=== PATIENT | male | born 1940 | race Caucasian/White ===

== ENCOUNTER 2023-04-09 10:23 | Emergency (ER) | payer MEDICARE, SELFPAY ==
[2023-04-09 10:26] VITALS: BP 174/80
[2023-04-09 10:30] VITALS: BMI 25.4
[2023-04-09 11:00] VITALS: BP 135/84
[2023-04-09 12:00] VITALS: BP 161/74
--- NOTE | 2023-04-09 12:10 | ED.GENMED ---
History of Present Illness
General
Chief Complaint: Fall
Source: patient and ambulance crew
Exam Limitations: none
Time Seen by Provider: 04/09/23 10:29
Travel History
Have you had any contact with someone who has COVID-19?: No
Do you have any symptoms of coronavirus? Fever > 100 degrees, chills, cough, shortness of breath, sore throat, loss of taste or smell, muscle aches, or headache?: No
History of Present Illness
History of Present Illness:
82-year-old male who fell out of his lounge chair recliner last night. Patient states that it laid back and normally it has power to sit back up but it would not go back up. He then tried to roll off of the side. He states he fell to the ground
and struck his right forehead. Patient denies any current complaints. He states he has a very minimal headache if anything. No neck pain. No loss of consciousness. No vomiting. Also has had little bit of oozing from his left AV graft since
dialysis.
Past History
Past History
ED Past Medical History: CAD, CHF, IDDM, [place], Renal failure and Other (Chronic kidney disease, chronic liver disease.)
ED Past Surgical History: Cardiac, Cholecystectomy, Orthopedic and Other (Pancreatic cyst removal)
Social History
Tobacco: Former smoker
Alcohol: None
Drug: None
Personal:
Living: with family
Employment: Retired
Family History
Family History: Diabetes and CAD
Phy Exam
Physical Exam
Physical Exam:
CONSTITUTIONAL Vital signs reviewed, Patient alert and oriented to person, place and time. Well-appearing
HEAD ecchymosis to the right forehead and right periorbital region. No crepitus. No step-offs or bony tenderness
EYES eyelids normal to inspection, Extraocular muscles intact, Conjunctiva normal, Sclera normal.
NECK normal range of motion, Trachea midline, no jugular venous distention. No midline tenderness
RESP no respiratory distress
BACK No obvious deformities
UPPER EXTREMITY Gross Range of motion normal, gross motor strength normal
LOWER EXTREMITY Gross range of motion normal, Gross motor strength normal
NEURO Speech normal, No focal motor deficits include, Paco coma scale 15, Memory normal, Cranial Nerves intact to screening exam.
SKIN Skin warm, dry, and normal in color.
PSYCHIATRIC Patient oriented to person place and time, Normal affect.
Course
Orders/Labs/Results
Orders:
Orders
04/09/23 10:47
CT Head W/o Iv Contrast Urgent
Comment:
Reason For Exam: fall
Vital Signs
Initial and Last Documented VS:
Initial Vital Signs
Temp Pulse Resp BP Pulse Ox
97.7 F 85 15 174/80 98
04/09/23 10:26 04/09/23 10:04/09/23 10:04/09/23 10:04/09/23 10:26
Last Documented Vital Signs
Temp Pulse Resp BP Pulse Ox
97.7 F 85 15 174/80 98
04/09/23 10:26 04/09/23 10:04/09/23 10:04/09/23 10:04/09/23 10:32
MDM/Problems Addressed
MDM/Problems Addressed:
head injury
*Radiology
Radiology exam reviewed: preliminary read by ED provider (no obvious ICH) and all reviewed NAD by ED Provider
*Pulse Oximetry
Patient hypoxic: no
*Critical Care Note
Total Time (30-74mins, 75-104mins- exclusive of procedures): Not Applicable
Data Reviewed
Source: patient and ambulance crew
Further Testing Considered But Not Given:
Consider C-spine imaging but no tenderness and normal range of motion
Update Note
Update Note:
CT negative. Okay for discharge. Nonfocal exam
ED Attending Note
-
Portions of this chart may have been created with voice recognition software.� Occasional wrong word or��sound alike� substitutions may have occurred due to the inherent limitations of voice recognition software.
Discharge Plan
Departure
Patient Disposition: Home (Routine Discharge)
Date of Disposition: 04/09/23
Time of Disposition: 12:12
Patient with high blood pressure during this ER visit?: Yes
Discharge Problem:
Head injury
Instructions: Head Injury in Adults (DC), BLOOD PRESSURE
Prescriptions:
No Action
vitamin B complex 1 TAB tablet
1 tab PO DAILY
finasteride 5 MG tablet
5 mg PO DAILY
aspirin 81 MG tablet,delayed release (DR/EC)
81 mg PO QPM
coenzyme Q10 [Co Q-10] 100 MG capsule
100 mg PO DAILY
Aranesp (in polysorbate) 10 MCG/0.4 ML syringe
0 dose IJ DAILYPRN PRN (Reason: low hb)
multivitamin with folic acid [Tab-A-Albino] 1 TABLET tablet
1 tab PO QPM
Patient Comments:
Not to take before dialysis
calcium acetate 667 MG tablet
1,334 mg PO MEALS
insulin aspart U-100 [Novolog FlexPen U-100 Insulin] 300 UNITS/3 ML insulin pen
0 units SC TIDPRN PRN (Reason: high blood sugar)
Patient Comments:
sliding scale
rosuvastatin 10 MG tablet
10 mg PO DAILY
furosemide 80 mg Tablet
80 mg PO SUMOWEFR
clopidogrel 75 mg tablet
75 mg PO DAILY
albuterol sulfate 90 mcg/actuation HFA aerosol inhaler
2 puff INHALATION R Q4HPRN PRN (Reason: sob/wheezing)
Anoro Ellipta 62.5-25 mcg/actuation blister with device
1 inh INHALATION R DAILY
pantoprazole [Protonix] 40 mg Tablet,Delayed Release (Dr/Ec)
40 mg PO DAILY
docusate sodium [Colace] 100 mg Capsule
100 mg PO BID
loratadine [Allerclear] 10 mg Tablet
10 mg PO DAILY
cholecalciferol (vitamin D3) [Vitamin D3] 25 mcg (1,000 unit) Capsule
25 mcg PO DAILY
midodrine 5 mg tablet
10 mg PO .BID@TUTHSA
acetaminophen [Tylenol Extra Strength] 500 MG tablet
500 mg PO TID
metoprolol succinate 25 mg tablet extended release 24 hr
75 mg PO QPM
amoxicillin-pot clavulanate 500-125 mg Tablet
1 tab PO Q12H 6 Days Qty: 12 0RF
Levemir U-100 Insulin 100 unit/mL Solution
10 unit SC BID Qty: 0 0RF
ciprofloxacin HCl [Cipro] 250 mg tablet
250 mg PO ONCE Qty: 6 0RF
Referrals:
Vic Chappell MD [Family Provider] -
Activity Restrictions/Additional Instructions:
Return immediately for intractable vomiting, changes in mentation, weakness of any kind, or any other concerns.
Interventions
Interventions:
*Risk Screen - Suicide Last Done: 04/09/23 10:32
*General Assessment Last Done: 04/09/23 10:32
*Neglect/Abuse Screening Last Done: 04/09/23 10:32
ED- Fall Risk Assessment Last Done: 04/09/23 10:32
*ED COVID-19 Vaccine History Last Done: 04/09/23 10:32
ED-Musculoskeletal Assessment Last Done: 04/09/23 10:32
ED-Skin Assessment Last Done: 04/09/23 10:32
[2023-04-09 13:44] VITALS: BP 157/73
[2023-04-09 13:45] VITALS: BP 157/73
[2023-04-09 14:00] VITALS: BP 157/72
== END 2023-04-09 14:20 | disposition home or self-care (01) ==
LOC: EMR 10:23
PROVIDERS: EMERGENCY PHYSICIAN Emergency Medicine; FAMILY PHYSICIAN Internal Medicine
DX: S09.90XA Unspecified injury of head, initial encounter (principal); W07.XXXA Fall from chair, initial encounter; Z87.891 Personal history of nicotine dependence; I10 Essential (primary) hypertension
CPT/HCPCS: 99284; 70450

== ENCOUNTER 2023-05-04 20:40 | Inpatient (IN) | payer MEDICARE, SELFPAY ==
[2023-05-04] VITALS (7 sets, daily range): BP systolic 122–143; BP diastolic 58–84; BMI 25.2
--- NOTE | 2023-05-04 16:39 | ED.GENMED ---
History of Present Illness
General
Chief Complaint: Breathing Problem
Source: patient
Exam Limitations: none
Time Seen by Provider: 05/04/23 16:32
Travel History
Have you had any contact with someone who has COVID-19?: No
Do you have any symptoms of coronavirus? Fever > 100 degrees, chills, cough, shortness of breath, sore throat, loss of taste or smell, muscle aches, or headache?: No
History of Present Illness
History of Present Illness:
See MDM
Past History
Past History
ED Past Medical History: CAD, CHF, IDDM, CT, Renal failure and Other (Chronic kidney disease, chronic liver disease.)
ED Past Surgical History: Cardiac, Cholecystectomy, Orthopedic and Other (Pancreatic cyst removal)
Social History
Tobacco: Former smoker
Alcohol: None
Drug: None
Personal:
Living: with family
Employment: Retired
Family History
Family History: Diabetes and CAD
Phy Exam
Physical Exam
Physical Exam:
See MDM
Scores
Heart Failure Risk
Heart Failure Risk Score: Yes
History of Stroke or TIA: No
History of intubation for respiratory distress: No
Heart rate on ED arrival >/= 110: No
SaO2 <90% on arrival on room air: Yes
HR >/=110 during 3min walk test (or too ill to perform test): Yes
ECG has acute ischemic changes: No
Urea >/=12mmol/L (BUN 33.6mg/dL): No
Serum CO2>/=35mmol/L: No
Troponin I or T elevated to CT Level (0.4mg/dL): No
NT-proBNP >/=5,000ng/L (5,000pg/ml): Yes
HF Risk Score: 4
Admission Status: HIGH RISK 26.1% Consider SNF treatment or admission to hospital
Course
Orders/Labs/Results
Orders:
Orders
05/04/23 16:33
EKG [Electrocardiogram (*1)] Urgent
Reason for Study: Shortness of Breath
EKG- Treatment ONCE
05/04/23 16:38
Acetaminophen [Tylenol] 1,000 mg PO NOW STA
CR Chest - 2 Views Urgent
Comment:
Reason For Exam: SOB, fever, ESRD
05/04/23 16:49
COVID-19 Antigen Urgent
Source: Nasal Swab
Complete Blood Count/With Diff Urgent
Comprehensive Metabolic Panel Urgent
Lactic Acid Q4H
Comment: CANCEL 2nd LACTIC ACID IF 1st LACTIC ACID IS LESS THAN 2
NT-proBNP Urgent
Troponin I Urgent
Blood Culture Q30M
[facility] Source: Blood/Venous
Specimen Description:
Blood Culture Q30M
[facility] Source: Blood/Venous
Specimen Description:
Influenza A+B Rapid Molecular Urgent
[facility] Source: Nasal Swab
Specimen Description:
05/04/23 18:27
Piperacillin/Tazo 3.375 Gram [Zosyn] 3.375 gram in 50 ml IV NOW
05/04/23 18:57
Vancomycin [Vancocin] 1,500 mg 0.9% Sodium Chloride [Nss] 20 ml 0.9% Sodium Chloride 250 ml [Nss] 250 ml IV NOW
05/04/23 20:45
Lactic Acid Q4H
Comment: CANCEL 2nd LACTIC ACID IF 1st LACTIC ACID IS LESS THAN 2
Abnormal Lab Results
05/04/23
16:49
RBC 2.51 L 10^6/uL
(4.70-6.10)
Hgb 7.9 L g/dL
(13.0-18.0)
Hct 23.5 L %
(39.0-52.0)
MCH 31.5 H pg
(27.0-31.0)
RDW 15.6 H %
(11.5-14.5)
Plt Count 101 L 10^3/uL
(130-400)
MPV 11.5 H fL
(7.4-10.4)
Absolute Lymphs (auto) 0.3 L 10^3/uL
(1.2-3.4)
Immature Gran % 0.7 H %
(0-0.5)
Neutrophils % 82.6 H %
(42.2-75.2)
Lymphocytes % 5.2 L %
(20.5-51.1)
Potassium 3.2 L mmol/L
(3.5-5.1)
BUN 33 H mg/dl
(9-20)
Creatinine 3.1 H mg/dL
(0.7-1.3)
Glucose 225 H mg/dl
(70-99)
05/04/23 16:49
05/04/23 16:49
Vital Signs
Initial and Last Documented VS:
Initial Vital Signs
Temp Pulse Resp BP Pulse Ox
100.1 F 99 18 136/62 83
05/04/23 16:36 05/04/23 16:36 05/04/23 16:36 05/04/23 16:36 05/04/23 16:36
Last Documented Vital Signs
Temp Pulse Resp BP Pulse Ox
100.1 F 99 18 136/62 98
05/04/23 16:36 05/04/23 16:36 05/04/23 16:36 05/04/23 16:36 05/04/23 16:42
MDM/Problems Addressed
Differential Diagnosis Includes:
HPI and MDM Narrative:
82-year-old male presenting with shortness of breath. Patient had a full dialysis session earlier today. When he arrived back to the nursing facility, he is short of breath. On arrival, patient found to be mildly hypoxic requiring supplemental
oxygen. Patient also found be febrile. He complains of shortness of breath and weakness.
Will obtain chest x-ray looking for evidence of pneumonia. Will obtain viral testing.
Physical exam
General: Weak and frail
HEENT: protecting airway
Neck: supple
CV: No evidence of cyanosis. Regular rate and rhythm
Resp: No accessory muscle use. Poor air exchange
Abd: Non-distended
Extremities: Left arm fistula with palpable thrill
Neuro: alert
Psych: Normal affect
Skin: Warm
Problems Addressed including Acute and Chronic Conditions affecting care:
1. Shortness of breath
Acuity: acute
Prognosis: stable
Details: Given the hypoxia, patient will likely require admission. Will obtain chest x-ray looking for evidence of pneumonia versus CHF.
2. Hypoxia
Acuity: acute
Prognosis: unstable
Details: Patient requiring supplemental oxygen
3. Hypokalemia
Acuity: acute
Prognosis: stable
Details: Will defer to hospitalist for repletion
Updates
Chest x-ray is concerning for interstitial edema. There is concern for right lower lobe pneumonia. Given the fever and hypoxia, will start antibiotics. Patient does make urine but will refrain from IV Lasix at the moment given the hypokalemia
Differential Diagnosis (but not limited to): Pneumonia, CHF, viral syndrome, PE
Testing considered: D-dimer
Drug therapy (if applicable): OTC meds, please see d/c instruction regarding Rx drugs
Amount and/or Complexity of Data Reviewed
Clinical info obtained from: Patient
External data reviewed: N/A
Labs I independently reviewed (but not limited to): Potassium, BNP
Radiology: X-ray independently reviewed: Concern for pulmonary edema and right lower lobe pneumonia
Pulse Ox: hypoxic
EKG independently reviewed: Sinus rhythm, left axis, no STEMI
Box Stamper: sinus rhythm
Critical Care: N/A
Risk of Complication:
Social Determinants of health: Good social support
Discussed with other providers: Hospitalist
Escalation of Care includes Admit/Obs: Given the interstitial edema, concern for pneumonia and hypoxia, will admit
Occasional wrong word or 'sound a like' substitutions may have occurred due to the inherent limitations of voice recognition software. Read the chart carefully and recognize, using context, where substitutions have occurred.
*Critical Care Note
Total Time (30-74mins, 75-104mins- exclusive of procedures): Not Applicable
ED Attending Note
-
Portions of this chart may have been created with voice recognition software.� Occasional wrong word or��sound alike� substitutions may have occurred due to the inherent limitations of voice recognition software.
Discharge Plan
Departure
Patient Disposition: Admit
Date of Disposition: 05/04/23
Time of Disposition: 19:11
Admit to: Med/Surg
Presentation/result/management discussed w/ accepting MD/DO: Hospitalist
Discharge Problem:
PNA (pneumonia), Interstitial edema, Hypoxia
Prescriptions:
No Action
vitamin B complex 1 TAB tablet
1 tab PO DAILY
finasteride 5 MG tablet
5 mg PO DAILY
aspirin 81 MG tablet,delayed release (DR/EC)
81 mg PO QPM
coenzyme Q10 [Co Q-10] 100 MG capsule
100 mg PO BID
Aranesp (in polysorbate) 10 MCG/0.4 ML syringe
0 dose IJ DAILYPRN PRN (Reason: low hb)
calcium acetate 667 MG tablet
1,334 mg PO MEALS
insulin aspart U-100 [Novolog FlexPen U-100 Insulin] 300 UNITS/3 ML insulin pen
0 units SC TIDPRN PRN (Reason: high blood sugar)
Patient Comments:
sliding scale
Rx Instructions:
>150= 2 units; >200= 4 units
rosuvastatin 10 MG tablet
10 mg PO QPM
furosemide 80 mg Tablet
80 mg PO SUMOWEFR
clopidogrel 75 mg tablet
75 mg PO DAILY
albuterol sulfate 90 mcg/actuation HFA aerosol inhaler
2 puff INHALATION R Q4HPRN PRN (Reason: sob/wheezing)
Anoro Ellipta 62.5-25 mcg/actuation blister with device
1 inh INHALATION R DAILY
pantoprazole [Protonix] 40 mg Tablet,Delayed Release (Dr/Ec)
40 mg PO DAILY
docusate sodium [Colace] 100 mg Capsule
100 mg PO BID
loratadine [Allerclear] 10 mg Tablet
10 mg PO DAILY
cholecalciferol (vitamin D3) [Vitamin D3] 25 mcg (1,000 unit) Capsule
25 mcg PO BID
acetaminophen [Tylenol Extra Strength] 500 MG tablet
500 mg PO TID PRN (Reason: mild pain)
metoprolol succinate 25 mg tablet extended release 24 hr
25 mg PO BID
famotidine 40 mg tablet
40 mg PO BID
megestrol 625 mg/5 mL (125 mg/mL) suspension
625 mg PO SUMOWEFR
Dialyvite [id number] gn-vb-zgb-mg tablet
1 tab PO QPM
biotin 5,000 mcg Tablet,Chewable
5,000 mcg PO BID
Levemir U-100 Insulin 100 unit/mL solution
10 - 12 unit SC QPM
Referrals:
Vic Chappell MD [Family Provider] -
Interventions
Interventions:
*Risk Screen - Suicide Last Done: 05/04/23 16:38
*General Assessment Last Done: 05/04/23 16:38
*Neglect/Abuse Screening Last Done: 05/04/23 16:38
*ED COVID-19 Vaccine History Last Done: 05/04/23 16:38
ED- Cardiac Assessment Last Done: 05/04/23 16:42
ED- Pulmonary Assessment Last Done: 05/04/23 16:42
[2023-05-04] MEDS: TYLENOL 1000 MG PO (16:44)
[2023-05-04 17:02] LABS: % Basophils 0.4 % (0-2); % Eosinophils 3.5 % (0-6); % Immature Granulocytes 0.7 % (0-0.5); % Lymphocytes 5.2 % (20.5-51.1); % Monocytes 7.6 % (1.7-9.3); % Neutrophils 82.6 % (42.2-75.2); Absolute Eosinophils 0.2 10^3/uL (0-0.7); Absolute Lymphocytes 0.3 10^3/uL (1.2-3.4); Absolute Monocytes 0.4 10^3/uL (0.1-0.6); Absolute Neutrophils 4.5 10^3/uL (1.4-6.5); Hematocrit 23.5 % (39.0-52.0); Hemoglobin 7.9 g/dL (13.0-18.0); Mean Corp Hgb Conc. 33.6 g/dL (33.0-37.0); Mean Corpuscular Hgb 31.5 pg (27.0-31.0); Mean Corpuscular Volume 93.6 fL (80.0-94.0); Mean Platelet Volume 11.5 fL (7.4-10.4); Nucleated Red Blood Cells % 0 % (-); Platelet Count 101 10^3/uL (130-400); Red Blood Cell Count 2.51 10^6/uL (4.70-6.10); Red Cell Dist. Width 15.6 % (11.5-14.5); White Blood Cell Count 5.4 10^3/uL (4.8-10.8)
[2023-05-04 17:19] LABS: ALT (SGPT) 17 U/L (0-50); AST (SGOT) 23 U/L (17-59); Alkaline Phosphatase 88 U/L (38-126); Blood Urea Nitrogen 33 mg/dl (9-20); Carbon Dioxide 30 mmol/L (22-30); Chloride 98 mmol/L (98-107); Estimated Creatinine Clearance 17 ml/min; Glucose 225 mg/dl (70-99); Potassium 3.2 mmol/L (3.5-5.1); Sodium 136 mmol/L (135-145); Total Bilirubin 1.2 mg/dl (0.2-1.3); Total Protein 6.5 g/dl (6.3-8.2); eGFR 19.45
[2023-05-04 17:30] LABS: NT-proBNP > 27000 pg/ml; Troponin I < 0.012 ng/ml
[2023-05-04 18:17] LABS: COVID-19 Antigen Negative (Negative)
[2023-05-04] MEDS: ZOSYN 50 IV (18:43)
[2023-05-04] MEDS: VANCOCIN 300 MG IV (19:24)
[2023-05-04] MEDS: VANCOCIN 300 ML IV (19:24)
--- NOTE | 2023-05-04 19:51 | HPS.HSE ---
Family Physician
-
Family Physician: Vic Chappell
Chief Complaint
-
shortness of breath
History of Present Illness
82-year-old male with past medical history of ESRD on hemodialysis, CAD, chronic HFrEF, COPD, diabetes, MDS, anemia of CKD, diverticulitis, presenting with feeling unwell and shortness of breath. He had a chemical stress test 3 weeks ago and since
then he has been having progressive shortness of breath. He has a slight cough which is chronic. He denies any chest pain. He denies any fever or chills but did have a fever today. He did have dialysis today. He has had increased lower
extremity edema recently. He thinks he has been losing weight recently because he has not been eating much because food tastes bland. He denies any nausea vomiting or abdominal pain. He has been constipated and did not have a bowel movement for
few weeks and took a laxative a few days ago and had a small bowel movement today. He denies any blood in the stool or black stool. He does make some urine at baseline and has chronic urinary burning for several years.
Patient denies blood in the stool or black stool
Denies current smoking. Denies alcohol use.
Medical History
Past Medical History
Past Medical History: Reports Other (ESRD on hemodialysis, CAD, chronic HFrEF, COPD, diabetes, MDS, anemia of CKD, diverticulitis, )
Past Surgical History: Reports Other ( Cardiac, Cholecystectomy, Orthopedic and Other (Pancreatic cyst removal))
Social History
Tobacco: Non-smoker
Alcohol: None
Drug: None
Family History
Family History: Not pertinent
Allergies / Home Medications
Allergies reflects when Allergies were last updated in [facility].
Home Medications with original date entered in [facility]
Allergy/Medication List:
Allergies
Allergy/AdvReac Type Severity Reaction Status Date / Time
adhesive Allergy Unknown Verified 05/04/23 16:35
baclofen Allergy confusion, Verified 05/04/23 16:35
extrapyramidal
symptoms
metoclopramide [From Reglan] Allergy Unknown Verified 05/04/23 16:35
Home Medications
vitamin B complex 1 tab PO DAILY Supplement 10/08/17
aspirin 81 mg tablet,delayed release 81 mg PO QPM Blood clot prevention/tx 01/11/19
coenzyme Q10 100 mg capsule (Co Q-10) 100 mg PO BID Heart disease/condition 01/11/19
darbepoetin дмитрий in polysorbat 10 mcg/0.4 mL in polysorbate injection syringe (Aranesp) 0 dose IJ DAILYPRN PRN low hb 01/11/19
finasteride 5 mg tablet 5 mg PO DAILY Urinary issue 01/11/19
calcium acetate 667 mg tablet 1,334 mg PO MEALS High phosphorous 09/15/19
insulin aspart U-100 100 unit/mL (3 mL) subcutaneous pen (Novolog FlexPen U-100 Insulin aspart) 0 units SC TIDPRN PRN high blood sugar 09/15/19
rosuvastatin 10 mg tablet 10 mg PO QPM High cholesterol 09/15/19
furosemide 80 mg tablet 80 mg PO SUMOWEFR Fluid retention/Swelling 02/16/22
albuterol sulfate 90 mcg/actuation aerosol inhaler 2 puff inhalation R Q4HPRN PRN sob/wheezing 06/07/22
clopidogrel 75 mg tablet 75 mg PO DAILY Blood clot prevention/tx 06/07/22
umeclidinium 62.5 mcg-vilanterol 25 mcg/actuation powdr for inhalation (Anoro Ellipta) 1 inh inhalation R DAILY Lung/breathing issues 06/07/22
acetaminophen 500 mg tablet (Tylenol Extra Strength) 500 mg PO TID PRN mild pain 10/06/22
cholecalciferol (vitamin D3) 25 mcg (1,000 unit) capsule (Vitamin D3) 25 mcg PO BID 10/06/22
docusate sodium 100 mg capsule (Colace) 100 mg PO BID 10/06/22
loratadine 10 mg tablet (Allerclear) 10 mg PO DAILY 10/06/22
metoprolol succinate 25 mg tablet,extended release 24 hr 25 mg PO BID 10/06/22
pantoprazole 40 mg tablet,delayed release (Protonix) 40 mg PO DAILY 10/06/22
B complex 11-folic acid 1 mg-C 100 mg-biotin 300 mcg-zinc 50 mg tablet (Dialyvite) 1 tab PO QPM 05/04/23
biotin 5,000 mcg chewable tablet 5,000 mcg PO BID 05/04/23
famotidine 40 mg tablet 40 mg PO BID 05/04/23
insulin detemir U-100 100 unit/mL subcutaneous solution (Levemir U-100 Insulin) 10 - 12 unit SC QPM 05/04/23
megestrol 625 mg/5 mL (125 mg/mL) oral suspension 625 mg PO SUMOWEFR 05/04/23
Review of Systems
-
History Source: Patient
A 12 point ROS was completed and negative except as noted: Yes
Constitutional: Reports No Symptoms
EENT: Reports No Symptoms
Respiratory: Reports See HPI
Cardiac: Reports No Symptoms
Abdomen/GI: Reports No Symptoms
: Reports No Symptoms
Musculoskeletal: Reports No Symptoms
Skin: Reports No Symptoms
Neurological: Reports No Symptoms
Endocrine: Reports No Symptoms
Hematologic/Lymphatic: Reports No Symptoms
Psych: Reports No Symptoms
Physical Exam
Vital Signs
Vital Signs
Temp Pulse Resp BP Pulse Ox
98.9 F 85 26 128/65 97
05/04/23 19:24 05/04/23 19:30 05/04/23 19:30 05/04/23 19:00 05/04/23 19:30
Physical Exam
General: Well Developed, Well Nourished and No Apparent Distress
HEENT: NormoCephalic, Moist mucous membranes and Atraumatic
Respiratory: Clear
Cardiac: S1/S2 and Regular Rhythm; No Murmur or Rub
GI: Soft, Non Tender, Non Distended and Normal Bowel Sounds; No Organomegaly
Rectal: Deferred by Provider
Musculoskeletal: No Clubbing, No Cyanosis and No Edema
Skin: No Rash
Neuro: Nonfocal/grossly intact
Laboratory Results
-
05/04/23 16:49
05/04/23 16:49
Laboratory Results
Lactic Acid 2.0 mmol/L (0.7-2.0) 05/04/23 16:49
Total Bilirubin 1.2 mg/dl (0.2-1.3) 05/04/23 16:49
AST 23 U/L (17-59) 05/04/23 16:49
ALT 17 U/L (0-50) 05/04/23 16:49
Alkaline Phosphatase 88 U/L (38-126) 05/04/23 16:49
Troponin I < 0.012 ng/ml 05/04/23 16:49
Data Reviewed
-
Lab Data: Labs Reviewed by me
Old Records: Reviewed
Impression/Plan
-
IMPRESSION:
PLAN:
# Sepsis(fever, tachycardia) secondary to likely interstitial pneumonia
-Vital signs have improved
-COVID-negative, influenza negative
-Check blood cultures
-Given vancomycin and Zosyn in ER, will switch to Zosyn and doxycycline to cover interstitial pneumonia
# Acute on chronic macrocytic anemia, likely due to renal disease
# Chronic anemia secondary to renal disease
-Hemoglobin 7.9 from 10.4 previously
-Check B12, folate, iron studies, fecal occult
# Hypokalemia
-Do not replete because dialysis patient
# Constipation
-Continue docusate
-Add MiraLAX
ESRD on hemodialysis on Wednesday, , Wednesday
-Received dialysis today
-Continue Lasix
-Nephrology consulted for routine dialysis
Chronic urinary burning
-Check urinalysis
CAD
-Continue aspirin, Plavix
-Continue statin
-Continue metoprolol
Chronic HFrEF
-Continue Lasix
COPD
-Continue inhalers
Type 2 diabetes
-Continue Levemir
-Insulin sliding scale
MDS
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
BPH
-Continue finasteride
GERD
-Continue PPI, Pepcid
Poor appetite/failure to thrive
-Continue megesterol
Full code
DVT prophylaxis�heparin
Renal diet
[2023-05-04 22:16] LABS: Glucose - Point of Care 152 mg/dl (70-99)
[2023-05-04 22:18] LABS: Lactic Acid 1.2 mmol/L (0.7-2.0)
[2023-05-04 22:23] LABS: Iron 47 ug/dl (49-181)
[2023-05-04 22:33] LABS: Percent Saturation 23 % (20-50); Total Iron Binding Capacity 201 ug/dl (261-462)
[2023-05-04] MEDS: MELATONIN 3 MG PO (23:09)
[2023-05-04] MEDS: COLACE 100 MG PO (23:09)
[2023-05-04] MEDS: VITAMIN D3 (cholecalciferol) 25 MCG PO (23:10)
[2023-05-04] MEDS: TOPROL XL 25 MG PO (23:10)
[2023-05-04] MEDS: PEPCID 40 MG PO (23:11)
[2023-05-04] MEDS: HEPARIN 5000 UNITS SC (23:11)
[2023-05-05 00:16] LABS: Folate > 20.0 ng/ml (2.76-20); Vitamin B12 > 1000 pg/ml (239-931)
[2023-05-05 05:35] VITALS: BMI 25.2
[2023-05-05] MEDS: ZOSYN 50 IV ×2 (05:56→17:17)
[2023-05-05 06:12] LABS: % Basophils 0.4 % (0-2); % Eosinophils 3.8 % (0-6); % Immature Granulocytes 0.6 % (0-0.5); % Lymphocytes 4.7 % (20.5-51.1); % Monocytes 9.2 % (1.7-9.3); % Neutrophils 81.3 % (42.2-75.2); Absolute Eosinophils 0.2 10^3/uL (0-0.7); Absolute Lymphocytes 0.3 10^3/uL (1.2-3.4); Absolute Monocytes 0.5 10^3/uL (0.1-0.6); Absolute Neutrophils 4.3 10^3/uL (1.4-6.5); Hematocrit 24.3 % (39.0-52.0); Hemoglobin 7.9 g/dL (13.0-18.0); Mean Corp Hgb Conc. 32.5 g/dL (33.0-37.0); Mean Corpuscular Hgb 31.1 pg (27.0-31.0); Mean Corpuscular Volume 95.7 fL (80.0-94.0); Mean Platelet Volume 11.7 fL (7.4-10.4); Nucleated Red Blood Cells % 0 % (-); Platelet Count 83 10^3/uL (130-400); Red Blood Cell Count 2.54 10^6/uL (4.70-6.10); Red Cell Dist. Width 15.8 % (11.5-14.5); White Blood Cell Count 5.3 10^3/uL (4.8-10.8)
[2023-05-05 06:41] LABS: ALT (SGPT) 14 U/L (0-50); AST (SGOT) 20 U/L (17-59); Albumin 3.7 g/dl (3.5-5.0); Alkaline Phosphatase 78 U/L (38-126); Blood Urea Nitrogen 42 mg/dl (9-20); Calcium 8.8 mg/dl (8.4-10.2); Carbon Dioxide 26 mmol/L (22-30); Chloride 99 mmol/L (98-107); Estimated Creatinine Clearance 13 ml/min; Glucose 172 mg/dl (70-99); Potassium 3.7 mmol/L (3.5-5.1); Sodium 138 mmol/L (135-145); Total Bilirubin 1.2 mg/dl (0.2-1.3); Total Protein 6.1 g/dl (6.3-8.2); eGFR 13.51
[2023-05-05] MEDS: VIBRAMYCIN 260 MG IV ×2 (06:44→18:04)
[2023-05-05 07:12] VITALS: BP 134/59
[2023-05-05] MEDS: SPIRIVA RESPIMAT 2.5 MCG 2 PUFF INH (07:42)
[2023-05-05] MEDS: STRIVERDI RESPIMAT 2 PUFF INH (07:42)
[2023-05-05 07:48] LABS: Glucose - Point of Care 235 mg/dl (70-99)
[2023-05-05] MEDS: HEPARIN 5000 UNITS SC ×2 (08:16→20:39)
[2023-05-05] MEDS: TOPROL XL 25 MG PO ×2 (08:18→20:39)
[2023-05-05] MEDS: MIRALAX 17 GRAMS PO (08:18)
[2023-05-05] MEDS: PROTONIX 40 MG PO (08:18)
[2023-05-05] MEDS: COLACE 100 MG PO ×2 (08:18→20:38)
[2023-05-05] MEDS: B COMPLEX w/VITAMIN C 1 CAPLET PO (08:19)
[2023-05-05] MEDS: PROSCAR 5 MG PO (08:19)
[2023-05-05] MEDS: VITAMIN D3 (cholecalciferol) 25 MCG PO ×2 (08:19→20:38)
[2023-05-05] MEDS: PLAVIX 75 MG PO (08:19)
[2023-05-05] MEDS: CLARITIN 10 MG PO (08:19)
[2023-05-05] MEDS: PHOSLO 1334 MG PO ×3 (08:19→17:25)
[2023-05-05] MEDS: PEPCID 40 MG PO ×2 (08:19→20:38)
[2023-05-05 08:20] LABS: Iron 46 ug/dl (49-181)
[2023-05-05] MEDS: MEGACE ORAL SUSPENSION 625 MG PO (08:23)
[2023-05-05] MEDS: NOVOLOG FLEXPEN-LOW RESISTANCE 2 UNITS SC ×3 (08:32→17:25)
[2023-05-05 08:39] LABS: Percent Saturation 22 % (20-50); Total Iron Binding Capacity 203 ug/dl (261-462)
[2023-05-05 09:21] LABS: Folate > 20.0 ng/ml (2.76-20); Vitamin B12 > 1000 pg/ml (239-931)
[2023-05-05 09:49] LABS: Glycohemoglobin (HgbA1c) 7.1 % (4.0-5.6)
[2023-05-05] MEDS: LASIX 80 MG PO (09:55)
--- NOTE | 2023-05-05 10:48 | W.PN.HOSP.TC ---
Today's Communication/Plan
-
Monitor vital signs stable
Continue with antibiotics
Follow cultures
HD per nephrology
Monitor hemoglobin
Wean oxygen as tolerated
Assessment / Plan
Assessment / Plan
General: Well Developed, No Apparent Distress
HEENT: NormoCephalic, Moist mucous membranes
Respiratory: Clear
Cardiac: S1/S2 and Regular Rhythm
GI: Soft, Non Tender, Non Distended and Normal Bowel Sounds
Rectal: Deferred by Provider
Musculoskeletal: LUE fistula
Neuro: Nonfocal/grossly intact
Sepsis(fever, tachycardia) secondary to likely interstitial pneumonia
Acute hypoxic respiratory sufficiency secondary to above, currently on 3 L
-Vital signs have improved
-COVID-negative, influenza negative
-Check blood cultures pending
-cw Zosyn and doxycycline to cover interstitial pneumonia
# Acute on chronic macrocytic anemia, likely due to renal disease
# Chronic anemia secondary to renal disease
-Hemoglobin 7.9; good iron stores; per patient on arinesp
# Hypokalemia
resolved
# Constipation
laxatives
ESRD on hemodialysis on Wednesday, , Wednesday
-last HD yesterday
-Continue Lasix
-Nephrology consulted for routine dialysis
Chronic urinary burning
-Check Ua
CAD
-Continue aspirin, Plavix
-Continue statin
-Continue metoprolol
Chronic HFrEF
-Continue Lasix
COPD
-Continue inhalers
Type 2 diabetes
-Continue Levemir
-Insulin sliding scale
A1c 7.1
MDS
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
BPH
-Continue finasteride
GERD
-Continue PPI, Pepcid
Poor appetite/failure to thrive
-Continue megesterol
Full code
DVT prophylaxis�heparin
I spent a total of 52 minutes with the patient or on the floor. More than 50% of this time involved counseling and coordination of care.
Anticipated Discharge: > 48 hours
Subjective/Interval History
-
Date of Service: May 05, 2023
does feel weak
Objective Data
-
Labs:
Laboratory Results
05/05/23
05:09
WBC 5.3
Hgb 7.9 L
Hct 24.3 L
Plt Count 83 L
Sodium 138
Potassium 3.7
Chloride 99
Carbon Dioxide 26
BUN 42 H
Creatinine 4.2 H*
Glucose 172 H
Calcium 8.8
Total Bilirubin 1.2
AST 20
ALT 14
Alkaline Phosphatase 78
Vital Signs:
Vital Signs
Temp Pulse Resp BP Pulse Ox
98.6 F 95 16 134/59 94
05/05/23 07:12 05/05/23 09:55 05/05/23 07:12 05/05/23 09:55 05/05/23 07:12
I&O
05/04/23 05/05/23 05/06/23
06:59 06:59 06:59
Intake Total 480 / 480
Balance 480 / 480
[2023-05-05 11:55] LABS: Glucose - Point of Care 227 mg/dl (70-99)
--- NOTE | 2023-05-05 12:08 | CM ---
Reviewed the chart notes and spoke with the patient and his spouse at the bedside. The patient resides with his spouse in an independent living apartment at [facility]. The patient receives HD at [facility]. The patient
has a rolling walker and an electric wheelchair. The patient has had [facility] in the past and been to the [facility]. The patient confirmed his pharmacy of choice is [facility]. CM continues to be available to patient/family and is
monitoring medical plan for needs at discharge.
Plan: Discharge plans will depend on the patient's progress.
[2023-05-05] MEDS: TUMS 1 TABLET PO (12:51)
--- NOTE | 2023-05-05 13:04 | W.CON.NEPH ---
Consultation
-
Date/Time Consultation Requested: 2200
Date/Time Consultation Performed: 05/05/23 1030
Requesting Provider: ESRD
Performing Provider: Cj Rosa
Reason for Consultation: Diane Bowen
Medical History
-
Chief Complaint: SOB
History of Present Illness:
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
diverticulitis, presented to ER on 05/03 with SOB after completing his HD at the out pt unit. reportedly he had a chemical stress test 3 weeks ago and since then he has been having progressive shortness of breath.� He has a slight cough which is
chronic.� He denies any chest pain.�he c/o chills with HD. He denies any nausea vomiting or abdominal pain.�Has chronic urinary burning for several years.
He is diagnosed with PNA and started on Abx. Nephrology was asked for his HD needs.
Past Medical History
1. ESRD.
2. Left upper extremity AV fistula.
3. MDS.
4. Coronary artery disease with bypass grafting.
5. Diabetes mellitus, type 2.
6. 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
7. BPH.
8. Hypertension.
9. Hyperlipidemia.
10.AAA.
11.COPD.
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
Past Medical History: Other
Past Surgical History: Other ( Cardiac, Cholecystectomy, Orthopedic and Other (Pancreatic cyst removal))
Social History
Tobacco: Former Smoker
Alcohol: None
Family History
no CKD
Family History: Not Pertinent
Allergies / Home Medications
Allergy/AdvReac Type Severity Reaction Status Date / Time
adhesive Allergy Unknown Verified 05/04/23 16:35
baclofen Allergy confusion, Verified 05/04/23 16:35
extrapyramidal
symptoms
metoclopramide [From Reglan] Allergy Unknown Verified 05/04/23 16:35
Medication Instructions Recorded Confirmed Type
vitamin B complex 1 tab PO DAILY Supplement 10/08/17 05/04/23 History
aspirin 81 mg tablet,delayed 81 mg PO QPM Blood clot 01/11/19 05/04/23 History
release prevention/tx
coenzyme Q10 100 mg capsule (Co 100 mg PO BID Heart 01/11/19 05/04/23 History
Q-10) disease/condition
darbepoetin дмитрий in polysorbat 10 0 dose IJ DAILYPRN PRN low hb 01/11/19 05/04/23 History
mcg/0.4 mL in polysorbate
injection syringe (Aranesp)
finasteride 5 mg tablet 5 mg PO DAILY Urinary issue 01/11/19 05/04/23 History
calcium acetate 667 mg tablet 1,334 mg PO MEALS High phosphorous 09/15/19 05/04/23 History
insulin aspart U-100 100 unit/mL 0 units SC TIDPRN PRN high blood 09/15/19 05/04/23 History
(3 mL) subcutaneous pen (Novolog sugar
FlexPen U-100 Insulin aspart)
rosuvastatin 10 mg tablet 10 mg PO QPM High cholesterol 09/15/19 05/04/23 History
furosemide 80 mg tablet 80 mg PO SUMOWEFR Fluid 02/16/22 05/04/23 History
retention/Swelling
albuterol sulfate 90 mcg/actuation 2 puff inhalation R Q4HPRN PRN 06/07/22 05/04/23 History
aerosol inhaler sob/wheezing
clopidogrel 75 mg tablet 75 mg PO DAILY Blood clot 06/07/22 05/04/23 History
prevention/tx
umeclidinium 62.5 mcg-vilanterol 1 inh inhalation R DAILY 06/07/22 05/04/23 History
25 mcg/actuation powdr for Lung/breathing issues
inhalation (Anoro Ellipta)
acetaminophen 500 mg tablet 500 mg PO TID PRN mild pain 10/06/22 05/04/23 History
(Tylenol Extra Strength)
cholecalciferol (vitamin D3) 25 25 mcg PO BID 10/06/22 05/04/23 History
mcg (1,000 unit) capsule (Vitamin
D3)
docusate sodium 100 mg capsule 100 mg PO BID 10/06/22 05/04/23 History
(Colace)
loratadine 10 mg tablet 10 mg PO DAILY 10/06/22 05/04/23 History
(Allerclear)
metoprolol succinate 25 mg 25 mg PO BID 10/06/22 05/04/23 History
tablet,extended release 24 hr
pantoprazole 40 mg tablet,delayed 40 mg PO DAILY 10/06/22 05/04/23 History
release (Protonix)
B complex 11-folic acid 1 mg-C 100 1 tab PO QPM 05/04/23 05/04/23 History
mg-biotin 300 mcg-zinc 50 mg
tablet (Dialyvite)
biotin 5,000 mcg chewable tablet 5,000 mcg PO BID 05/04/23 05/04/23 History
famotidine 40 mg tablet 40 mg PO BID 05/04/23 05/04/23 History
insulin detemir U-100 100 unit/mL 10 - 12 unit SC QPM 05/04/23 05/04/23 History
subcutaneous solution (Levemir
U-100 Insulin)
megestrol 625 mg/5 mL (125 mg/mL) 625 mg PO SUMOWEFR 05/04/23 05/04/23 History
oral suspension
Review of Systems
-
History Source: Patient
All other systems: Negative unless noted
Constitutional: Fatigue and Chills
Respiratory: Cough and Trouble Breathing
Cardiac: No Symptoms
Abdomen/GI: Constipated
: Dysuria
Skin: No Symptoms
Neurological: No Symptoms
Endocrine: No Symptoms
Physical Exam
Vital Signs
Vital Signs
Temp Pulse Resp BP Pulse Ox
98.6 F 95 16 134/59 95
05/05/23 07:12 05/05/23 09:55 05/05/23 07:12 05/05/23 09:55 05/05/23 08:00
Lab Results
WBC 5.3 10^3/uL (4.8-10.8) 05/05/23 05:09
RBC 2.54 10^6/uL (4.70-6.10) L 05/05/23 05:09
Hgb 7.9 g/dL (13.0-18.0) L 05/05/23 05:09
Hct 24.3 % (39.0-52.0) L 05/05/23 05:09
Plt Count 83 10^3/uL (130-400) L 05/05/23 05:09
Sodium 138 mmol/L (135-145) 05/05/23 05:09
Potassium 3.7 mmol/L (3.5-5.1) 05/05/23 05:09
Chloride 99 mmol/L (98-107) 05/05/23 05:09
Carbon Dioxide 26 mmol/L (22-30) 05/05/23 05:09
BUN 42 mg/dl (9-20) H 05/05/23 05:09
Creatinine 4.2 mg/dL (0.7-1.3) H* 05/05/23 05:09
eGFR 13.51 05/05/23 05:09
Glucose 172 mg/dl (70-99) H 05/05/23 05:09
Calcium 8.8 mg/dl (8.4-10.2) 05/05/23 05:09
Cca-I-Ctgsqhgapjk Pept > 10907 pg/ml 05/04/23 16:49
Albumin 3.7 g/dl (3.5-5.0) 05/05/23 05:09
CXR:
FINDINGS:
Markedly low lung volumes are noted with crowding of the central/vascular markings. Slightly prominent pulmonary markings are noted bilaterally most likely predominantly interstitial. The cardiomediastinal silhouettes are most likely within the
limits of normal. There is no pneumothorax, pleural effusion or mediastinal shift. Right shoulder arthroplasty is noted. Sternal wires are noted.
IMPRESSION:
Markedly low lung volumes with crowding of the central/vascular markings.
Slightly prominent bilateral pulmonary markings most likely predominantly interstitial. Some of several differential diagnostic possibilities include interstitial pneumonitis and interstitial edema.
Physical Exam
General: Awake, Alert, Oriented, AOx3, No Distress and Nontoxic
HEENT: EOMI and Anicteric
Respiratory: Clear
Cardiac: S1/S2 and Regular Rate/Rhythm
Abdomen: Soft, Nontender and Nondistended
Musculoskeletal: No Cyanosis and No Edema
Skin: No Rash
Neuro: Nonfocal/Grossly Intact
Psych: Mood/afflect pleasant, Insight/judgement good and Appropriate
Assessment/Plan
-
IMP:
Sepsis(fever, tachycardia) secondary to likely interstitial pneumonia
ESRD on hemodialysis on Wednesday, , Wednesday
Left UE AVF
Acute on chronic macrocytic anemia
Chronic anemia secondary to renal disease
Hypokalemia
Constipation
Chronic urinary burning
CAD
Chronic combined HFrEF EF 35-40%, [id number]
COPD
Type 2 diabetes
MDS
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
BPH
GERD
Poor appetite/failure to thrive-on marinol
Plan:
A/w sob post HD on 05/03
suspected to have PNA, on abx per primary
hemodynamically stable
plan HD tomorrow, no heparin due to low plt
resume phos binder
renal diet with FR
d/w pt
Data Reviewed
-
Radiology: Report Reviewed by me
Medical Tests (Nuc Med, Echo etc): Image Personally Visualized and interpreted and Report Reviewed by me
Labs: Labs Reviewed by me
--- NOTE | 2023-05-05 13:45 | PTCARENOTE ---
patient vomited x1. moderated amount of clear phlegm noted. Denies pain and SOB. No s/s of distress noted.Md aware. New orders in place. plan of care ongoing.
[2023-05-05] MEDS: ZOFRAN 4 MG IV (14:06)
[2023-05-05] MEDS: MUCINEX 1200 MG PO (14:07)
[2023-05-05 15:13] VITALS: BP 123/62
[2023-05-05 16:03] VITALS: BMI 25.2
[2023-05-05 17:11] LABS: Glucose - Point of Care 205 mg/dl (70-99)
[2023-05-05] MEDS: ASPIR LOW (ENTERIC COATED) 81 MG PO (17:17)
[2023-05-05] MEDS: CRESTOR 10 MG PO (17:17)
[2023-05-05] MEDS: LEVEMIR 0.100000000000000006 UNITS SC (17:27)
[2023-05-05 21:14] LABS: Urine Albumin 3+ (Neg - Trace); Urine Bilirubin 1+ (Negative); Urine Character Clear (Clear); Urine Color Yellow; Urine Glucose 1+ (Negative); Urine Ketone Negative (Negative); Urine Leukocyte Trace (Negative); Urine Nitrite Negative (Negative); Urine Occult Blood Negative (Negative); Urine Urobilinogen 1+ (Neg - 1+)
[2023-05-05 21:22] LABS: Urine Mucus Few
[2023-05-05 21:23] LABS: Urine Hyaline Cast 0-2 /LPF (0-2); Urine Red Blood Cell 0-2 /HPF (0-2); Urine White Cell 26-30 /HPF (0-5)
[2023-05-05 22:15] LABS: Glucose - Point of Care 289 mg/dl (70-99)
[2023-05-05 23:18] VITALS: BP 129/63
[2023-05-06] MEDS: ZOSYN 50 IV ×2 (05:39→18:10)
[2023-05-06] MEDS: VIBRAMYCIN 260 MG IV (05:41)
[2023-05-06 05:53] VITALS: BMI 25.4
[2023-05-06 07:32] VITALS: BP 139/52
[2023-05-06] MEDS: SPIRIVA RESPIMAT 2.5 MCG 2 PUFF INH (07:38)
[2023-05-06] MEDS: STRIVERDI RESPIMAT 2 PUFF INH (07:39)
[2023-05-06] MEDS: B COMPLEX w/VITAMIN C 1 CAPLET PO (08:32)
[2023-05-06] MEDS: PROTONIX 40 MG PO (08:33)
[2023-05-06] MEDS: MIRALAX 17 GRAMS PO (08:33)
[2023-05-06] MEDS: PEPCID 40 MG PO (08:36)
[2023-05-06] MEDS: COLACE 100 MG PO ×2 (08:36→20:48)
[2023-05-06] MEDS: VITAMIN D3 (cholecalciferol) PO ×2 (08:36→12:45)
[2023-05-06] MEDS: PHOSLO PO ×2 (08:37→08:49)
[2023-05-06] MEDS: CLARITIN 10 MG PO (08:37)
[2023-05-06 08:38] LABS: Glucose - Point of Care 138 mg/dl (70-99)
[2023-05-06] MEDS: HEPARIN SC ×2 (08:38→12:42)
[2023-05-06] MEDS: PLAVIX 75 MG PO (08:41)
[2023-05-06] MEDS: MUCINEX 1200 MG PO ×2 (08:42→20:48)
[2023-05-06] MEDS: PROSCAR PO ×2 (08:42→12:44)
[2023-05-06] MEDS: NOVOLOG FLEXPEN-LOW RESISTANCE SC (08:43)
[2023-05-06 08:59] LABS: % Basophils 0.6 % (0-2); % Eosinophils 5.1 % (0-6); % Immature Granulocytes 0.8 % (0-0.5); % Lymphocytes 7.9 % (20.5-51.1); % Monocytes 9.1 % (1.7-9.3); % Neutrophils 76.5 % (42.2-75.2); Absolute Eosinophils 0.3 10^3/uL (0-0.7); Absolute Lymphocytes 0.4 10^3/uL (1.2-3.4); Absolute Monocytes 0.5 10^3/uL (0.1-0.6); Absolute Neutrophils 4.1 10^3/uL (1.4-6.5); Hematocrit 21.9 % (39.0-52.0); Mean Corpuscular Hgb 30.8 pg (27.0-31.0); Mean Corpuscular Volume 96.5 fL (80.0-94.0); Mean Platelet Volume 12.4 fL (7.4-10.4); Nucleated Red Blood Cells % 0 % (-); Platelet Count 75 10^3/uL (130-400); Red Blood Cell Count 2.27 10^6/uL (4.70-6.10); Red Cell Dist. Width 15.6 % (11.5-14.5); White Blood Cell Count 5.3 10^3/uL (4.8-10.8)
[2023-05-06] MEDS: RETACRIT 10000 UNITS IV (09:08)
--- NOTE | 2023-05-06 09:21 | W.PN.HOSP.TC ---
Today's Communication/Plan
-
see bold
Assessment / Plan
Assessment / Plan
Gen: NAD, Awake and alert
Eyes: EOMI, PERRLA, no scleral icterus.
Neck: supple.
CV: RRR, +S1/S2, no m/r/g.
Resp: CTAB, no rales, wheezes, or rhonchi.
Abd: +BS, soft, NT, ND
Skin: No rashes.
Neuro: CN 2-12 intact, non-focal.
Psych: Normal mood and affect.
CXR 05/04/23: Markedly low lung volumes with crowding of the central/vascular markings. Slightly prominent bilateral pulmonary markings most likely predominantly interstitial. Some of several differential diagnostic possibilities include interstitial
pneumonitis and interstitial edema.
Sepsis and acute hypoxemic respiratory insufficiency due to interstitial pneumonia:
-COVID/Flu NEG
-BCxs NGTD
-currently on 3L NC O2
-currently on Zosyn/doxycycline
-repeat CXR
-daily wts
Acute on chronic macrocytic anemia:
-likely due to renal disease
-On Aranesp [employer]IFT NAILER
-Hemoglobin 7.0, type and screen. Transfuse for Hb<7.
-Hemetest stool
Other problems:
Hypokalemia, resolved
ESRD: Cont HD T//
Chronic urinary burning: U/A with pyuria. Currently on Zosyn, follow UCx
CAD: cont ASA/Plavix/stating/BB
Chronic HFrEF: cont Lasix/BB
COPD, not in acute exac: cont Spiriva/Striverdi
DM2: a1c 7.1, cont Levemir/SSI/accuchecks
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
BPH: Continue finasteride
GERD: Continue PPI, Pepcid
Poor appetite/failure to thrive: Continue megesterol
FULL/heparin
Anticipated Discharge: 24 - 48 hours
Subjective/Interval History
-
Date of Service: May 06, 2023
Denies CP/SOB/cough/hematochezia. Says stool today was dark but not black.
Objective Data
-
Labs:
Laboratory Results
05/06/23
08:35
WBC 5.3
Hgb 7.0 L
Hct 21.9 L
Plt Count 75 L
Sodium Pending
Potassium Pending
Chloride Pending
Carbon Dioxide Pending
BUN Pending
Creatinine Pending
Glucose Pending
Calcium Pending
Total Bilirubin Pending
AST Pending
ALT Pending
Alkaline Phosphatase Pending
Vital Signs:
Vital Signs
Temp Pulse Resp BP Pulse Ox
97.7 F 78 15 139/52 98
05/06/23 07:32 05/06/23 07:41 05/06/23 07:41 05/06/23 07:32 05/06/23 07:32
I&O
05/05/23 05/06/23 05/07/23
06:59 06:59 06:59
Intake Total 480 / 480 1440 / 1440
Balance 480 / 480 1440 / 1440
[2023-05-06 09:38] LABS: ALT (SGPT) 15 U/L (0-50); AST (SGOT) 21 U/L (17-59); Albumin 3.4 g/dl (3.5-5.0); Alkaline Phosphatase 66 U/L (38-126); Blood Urea Nitrogen 61 mg/dl (9-20); Calcium 9.1 mg/dl (8.4-10.2); Carbon Dioxide 25 mmol/L (22-30); Chloride 100 mmol/L (98-107); Estimated Creatinine Clearance 9 ml/min; Glucose 133 mg/dl (70-99); Potassium 4.2 mmol/L (3.5-5.1); Sodium 135 mmol/L (135-145); Total Protein 5.6 g/dl (6.3-8.2); eGFR 9.17
--- NOTE | 2023-05-06 11:46 | W.PN.NEPH.HD ---
Assessment
-
pt seen during HD
vitals stable
hb low, prn transfusion
high dose HANY with HD
abx per primary
AVF functions well
Progress Note - Hemodialysis
-
Date of Service: May 06, 2023
Duration: 30 minutes and 3 hours
Potassium Bath: 3
Calcium Bath: 2.5
Opti-Dialyzer: 160
Ultrafiltration: Other (1.5-2kg)
Blood Flow: 400
Dialysate Flow: 600
Heparin: no
EPO: [id number]
[2023-05-06 12:13] LABS: Glucose - Point of Care 195 mg/dl (70-99)
[2023-05-06] MEDS: TOPROL XL PO (12:44)
[2023-05-06] MEDS: NOVOLOG FLEXPEN-LOW RESISTANCE 1 UNITS SC ×2 (12:45→18:16)
[2023-05-06] MEDS: PHOSLO 1334 MG PO ×2 (12:45→18:08)
[2023-05-06 14:56] VITALS: BP 101/45
[2023-05-06 17:14] LABS: Glucose - Point of Care 156 mg/dl (70-99)
[2023-05-06] MEDS: ASPIR LOW (ENTERIC COATED) 81 MG PO (18:09)
[2023-05-06] MEDS: CRESTOR 10 MG PO (18:09)
[2023-05-06] MEDS: LEVEMIR 0.100000000000000006 UNITS SC (18:10)
[2023-05-06 19:03] LABS: Hepatitis B Surface Antigen Negative (Negative)
[2023-05-06] MEDS: HEPARIN 5000 UNITS SC (20:48)
[2023-05-06] MEDS: VIBRAMYCIN 100 MG PO (20:48)
[2023-05-06] MEDS: VITAMIN D3 (cholecalciferol) 25 MCG PO (20:49)
[2023-05-06] MEDS: TOPROL XL 25 MG PO (20:49)
[2023-05-06 22:24] LABS: Glucose - Point of Care 126 mg/dl (70-99)
[2023-05-07 00:03] VITALS: BP 120/84
[2023-05-07 06:00] VITALS: BMI 25.3
[2023-05-07] MEDS: ZOSYN 50 IV ×2 (06:17→17:23)
[2023-05-07 06:29] LABS: Transferrin 148 mg/dL (200-360)
[2023-05-07 07:15] VITALS: BP 136/60
[2023-05-07] MEDS: STRIVERDI RESPIMAT 2 PUFF INH (07:30)
[2023-05-07] MEDS: SPIRIVA RESPIMAT 2.5 MCG 2 PUFF INH (07:30)
[2023-05-07 08:00] LABS: Glucose - Point of Care 115 mg/dl (70-99)
--- NOTE | 2023-05-07 08:33 | W.PN.HOSP.TC ---
Today's Communication/Plan
-
see bold
Assessment / Plan
Assessment / Plan
Gen: NAD, Awake and alert, appears chronically ill
Eyes: EOMI, PERRLA, no scleral icterus.
Neck: supple.
CV: remains RRR, +S1/S2, no m/r/g.
Resp: CTAB anteriorly, no rales, wheezes, or rhonchi.
Abd: +BS, soft, NT, ND
Skin: No rashes.
Neuro: CN 2-12 intact, non-focal.
Psych: Normal mood and affect.
05/04/23 16:49 Blood/Venous Blood Culture - Preliminary
No Growth in 48 hours- Final report to follow
05/04/23 16:49 Blood/Venous Blood Culture - Preliminary
No Growth in 48 hours- Final report to follow
05/05/23 05:54 Nose MRSA Screen - Final
No Methicillin Resistant Staphylococcus aureus isolated.
05/04/23 16:49 Nasal Swab Influenza Types A & B (DUY) - Final
Negative for Influenza A & B, NAAT
Negative results must be combined with clinical observations
and patient history.
Nucleic Acid Amplification test (NAAT)performed on the
[employer] NOW platform.
CXR 05/04/23: Markedly low lung volumes with crowding of the central/vascular markings. Slightly prominent bilateral pulmonary markings most likely predominantly interstitial. Some of several differential diagnostic possibilities include interstitial
pneumonitis and interstitial edema.
CXR 05/06/23: Slight progression of markings bilaterally which may be interstitial and with some superimposed alveolar component which could represent pneumonitis/pneumonia. Atypical pattern of pulmonary edema cannot be differentiated.
Sepsis and acute hypoxemic respiratory insufficiency due to interstitial pneumonia and possibly acute on chronic HFrEF:
-COVID/Flu NEG
-BCxs NGTD
-currently on 2L NC O2
-currently on Zosyn/doxycycline
-daily wts
-It is unclear at this time if the patient's acute hypoxemic respiratory failure is due to interstitial pneumonia, acute on chronic HFrEF, or both. Will c/s pulm and cards.
Acute on chronic macrocytic anemia:
-likely due to renal disease
-On Aranesp CYLINDER STEAMER
-Hemoglobin 7.3. Transfuse for Hb<7.
-Hemetest stool
Other problems:
Hypokalemia, resolved
ESRD: Cont HD //
Chronic urinary burning: U/A with pyuria. Currently on Zosyn, follow UCx
CAD: cont ASA/Plavix/stating/BB
Chronic HFrEF: cont Lasix/BB
COPD, not in acute exac: cont Spiriva/Striverdi
DM2: a1c 7.1, cont Levemir/SSI/accuchecks
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
BPH: Continue finasteride
GERD: Continue PPI, Pepcid
Poor appetite/failure to thrive: Continue megesterol
FULL/heparin
Anticipated Discharge: 24 - 48 hours
Subjective/Interval History
-
Date of Service: May 07, 2023
No new complaints.
Objective Data
-
Vital Signs:
Vital Signs
Temp Pulse Resp BP Pulse Ox
98.5 F 76 16 136/60 96
05/07/23 07:15 05/07/23 07:37 05/07/23 07:37 05/07/23 07:15 05/07/23 07:37
I&O
05/06/23 05/07/23 05/08/23
06:59 06:59 06:59
Intake Total 1740 / 1740 600 / 600
Output Total 250 / 250
Balance 1490 / 1490 600 / 600
[2023-05-07 08:59] LABS: Hematocrit 22.8 % (39.0-52.0); Hemoglobin 7.3 g/dL (13.0-18.0); Mean Corpuscular Hgb 31.2 pg (27.0-31.0); Mean Corpuscular Volume 97.4 fL (80.0-94.0); Mean Platelet Volume 10.9 fL (7.4-10.4); Platelet Count 68 10^3/uL (130-400); Red Blood Cell Count 2.34 10^6/uL (4.70-6.10); Red Cell Dist. Width 15.6 % (11.5-14.5); White Blood Cell Count 5.4 10^3/uL (4.8-10.8)
[2023-05-07] MEDS: NOVOLOG FLEXPEN-LOW RESISTANCE SC (09:18)
[2023-05-07] MEDS: B COMPLEX w/VITAMIN C 1 CAPLET PO (09:37)
[2023-05-07] MEDS: PROTONIX 40 MG PO (09:37)
[2023-05-07] MEDS: PLAVIX 75 MG PO (09:37)
[2023-05-07] MEDS: VIBRAMYCIN 100 MG PO ×2 (09:37→20:25)
[2023-05-07] MEDS: TOPROL XL 25 MG PO ×2 (09:37→20:27)
[2023-05-07] MEDS: MUCINEX 1200 MG PO ×2 (09:37→20:25)
[2023-05-07] MEDS: PHOSLO 1334 MG PO ×3 (09:37→17:20)
[2023-05-07] MEDS: HEPARIN 5000 UNITS SC ×2 (09:38→20:28)
[2023-05-07] MEDS: COLACE 100 MG PO ×2 (09:38→20:26)
[2023-05-07] MEDS: MIRALAX 17 GRAMS PO (09:38)
[2023-05-07] MEDS: PROSCAR 5 MG PO (09:38)
[2023-05-07] MEDS: VITAMIN D3 (cholecalciferol) 25 MCG PO ×2 (09:38→20:25)
[2023-05-07] MEDS: CLARITIN 10 MG PO (09:39)
[2023-05-07] MEDS: LASIX 80 MG PO (09:46)
[2023-05-07] MEDS: MEGACE ORAL SUSPENSION 625 MG PO (09:46)
--- NOTE | 2023-05-07 10:31 | CON.CAR ---
Addendum entered and electronically signed by Jacob Mayer MD 05/07/23 12:27:
82 yo male with CAD, inferior infarct, ICM EF 35-40%, chronic systolic HF. Admitted with suspected PNA, low grade temp, hypoxia. Receiving Abx: feels better. No CP, no edema. SOB better. Exam with RRR, no murmurs, no edema. EKG: NSR, LVH, IVCD.
Weight is stable.
His HF seems chronic and compensated. I would continue current regimen of PO lasix and HD/UF for volume management.
Please call us back with additional questions.
Original Note:
Consultation
Consultation Request
Date/Time Consultation Requested: 05/07/23 1003
Date/Time Consultation Performed: 05/07/23 1030
Requesting Provider: Dr. Tony
Performing Provider: Aliza BENITEZ for Dr. Mayer
Reason for Consultation: CHF
Medical History
-
Chief Complaint: SOB, hypoxemia
History of Present Illness:
82 y/o male with CAD with CABG x 2 2019, PCI 2004, ICM with most recent EF 35-40%, anemia, ESRD on HD, Type II DM, COPD, and MDS with thrombocytopenia. He is here for evaluation after a dialysis treatment on 05/04/23. Afterward, staff though he
didn't look well and he was hypoxemic. Low grade temp. He was admitted for treatment of PNA and received ABX and is feeling much better. We are consulted due to concern for component of HF. On exam, he has very mild BLE edema, rales to lung bases.
He is on O2 by [place]. Of note, he has had SCOTT for months. His manager review, Dr. Collins ordered and echo, which showed worsened CM. As a result, he had a stress test, which per OP notes, showed inferior scar/ischemia. They discussed possibility of cath.
However, patient discussed with his PCP at [facility] and they agreed not to proceed, and to continue medical management. He denies any CP. EKG stable. Trop normal.
Past Medical History
Past Medical History: CAD, CHF, GERD, HTN, Hypercholesterolemia, NIDDM, Renal Failure and Other (AAA, Pancreatic lesion (precancer per pt) s/p Whipple procedure ([facility], 2007))
Social History
Tobacco: Former Smoker
Personal:
Living: Other ([facility])
Allergies / Home Medications
Allergy/AdvReac Type Severity Reaction Status Date / Time
adhesive Allergy Unknown Verified 05/04/23 16:35
baclofen Allergy confusion, Verified 05/04/23 16:35
extrapyramidal
symptoms
metoclopramide [From Reglan] Allergy Unknown Verified 05/04/23 16:35
Medication Instructions Recorded Confirmed Type
vitamin B complex 1 tab PO DAILY Supplement 10/08/17 05/04/23 History
aspirin 81 mg tablet,delayed 81 mg PO QPM Blood clot 01/11/19 05/04/23 History
release prevention/tx
coenzyme Q10 100 mg capsule (Co 100 mg PO BID Heart 01/11/19 05/04/23 History
Q-10) disease/condition
darbepoetin дмитрий in polysorbat 10 0 dose IJ DAILYPRN PRN low hb 01/11/19 05/04/23 History
mcg/0.4 mL in polysorbate
injection syringe (Aranesp)
finasteride 5 mg tablet 5 mg PO DAILY Urinary issue 01/11/19 05/04/23 History
calcium acetate 667 mg tablet 1,334 mg PO MEALS High phosphorous 09/15/19 05/04/23 History
insulin aspart U-100 100 unit/mL 0 units SC TIDPRN PRN high blood 09/15/19 05/04/23 History
(3 mL) subcutaneous pen (Novolog sugar
FlexPen U-100 Insulin aspart)
rosuvastatin 10 mg tablet 10 mg PO QPM High cholesterol 09/15/19 05/04/23 History
furosemide 80 mg tablet 80 mg PO SUMOWEFR Fluid 02/16/22 05/04/23 History
retention/Swelling
albuterol sulfate 90 mcg/actuation 2 puff inhalation R Q4HPRN PRN 06/07/22 05/04/23 History
aerosol inhaler sob/wheezing
clopidogrel 75 mg tablet 75 mg PO DAILY Blood clot 06/07/22 05/04/23 History
prevention/tx
umeclidinium 62.5 mcg-vilanterol 1 inh inhalation R DAILY 06/07/22 05/04/23 History
25 mcg/actuation powdr for Lung/breathing issues
inhalation (Anoro Ellipta)
acetaminophen 500 mg tablet 500 mg PO TID PRN mild pain 10/06/22 05/04/23 History
(Tylenol Extra Strength)
cholecalciferol (vitamin D3) 25 25 mcg PO BID Supplement 10/06/22 05/04/23 History
mcg (1,000 unit) capsule (Vitamin
D3)
docusate sodium 100 mg capsule 100 mg PO BID Constipation 10/06/22 05/04/23 History
(Colace)
loratadine 10 mg tablet 10 mg PO DAILY Allergies 10/06/22 05/04/23 History
(Allerclear)
metoprolol succinate 25 mg 25 mg PO BID Heart Failure 10/06/22 05/04/23 History
tablet,extended release 24 hr
pantoprazole 40 mg tablet,delayed 40 mg PO DAILY Gastrointestinal 10/06/22 05/04/23 History
release (Protonix) Issue
B complex 11-folic acid 1 mg-C 100 1 tab PO QPM Supplement 05/04/23 05/04/23 History
mg-biotin 300 mcg-zinc 50 mg
tablet (Dialyvite)
biotin 5,000 mcg chewable tablet 5,000 mcg PO BID Supplement 05/04/23 05/04/23 History
famotidine 40 mg tablet 40 mg PO BID Gastrointestinal Issue 05/04/23 05/04/23 History
insulin detemir U-100 100 unit/mL 10 - 12 unit SC QPM Diabetes 05/04/23 05/04/23 History
subcutaneous solution (Levemir
U-100 Insulin)
megestrol 625 mg/5 mL (125 mg/mL) 625 mg PO SUMOWEFR Appitite 05/04/23 05/04/23 History
oral suspension
Review of Systems
-
History Source: Patient
All other systems: Negative unless noted
Respiratory: Trouble Breathing
Physical Exam
Vital Signs
Temp Pulse Resp BP Pulse Ox
98.5 F 76 16 136/60 96
05/07/23 07:15 05/07/23 07:37 05/07/23 07:37 05/07/23 07:15 05/07/23 07:37
Lab Results
05/07/23 08:40
05/06/23 08:35
Troponin I < 0.012 ng/ml 05/04/23 16:49
Njh-B-Dlcresorbcr Pept > 01283 pg/ml 05/04/23 16:49
Physical Exam
General: Well Developed and No Apparent Distress
HEENT: Normocephalic and Anicteric
Respiratory: Crackles (b/l bases) and Other (on O2 by [place])
Cardiac: Regular Rhythm and Murmur (II/ systolic murmur)
Musculoskeletal: Edema (mild BLE edema)
Skin: Warm and Dry
Neuro: AO x 3
Psych: Calm
Impression / Plan
-
Acute hypoxemic respiratory insufficiency:
-patient with COPD, CHF, and PNA
-feeling improved with treatment of PNA with ABX
-wean O2 as tolerated per protocol
-pulm also consulted
Chronic HFrEF:
-weight stable, minimal edema
-volume management by HD
ICM EF 35-40%:
-continue BB
-GDMT limited by BP (when on HD per OP notes) and renal function
CAD with hx CABG:
-stable without CP- EKG stable, trop normal
-recent abnormal stress test as noted, and patient opted for no cath, and continued med management after discussion with his primary doc - OP follow-up with manager review
-on DAPT and BB and statin
ESRD on HD:
-per nephro
Anemia of chronic disease:
-patient with MDS, ESRD
-however, worse than previous
-denies any bleeding
-stool to be heme tests
Data Reviewed
-
EKG: Tracing Personally Visualized and interpreted
Radiology: Report Reviewed by me (CXR: Slight progression of markings bilaterally which may be interstitial and with some superimposed alveolar component which could represent pneumonitis/pneumonia. Atypical pattern of pulmonary edema cannot be
differentiated.)
Medical Tests (Nuc Med, Echo etc): Report Reviewed by me (Echo 03/31/23: Moderate-large area of severe hypokinesis/akinesis involving the inferoseptum, the inferior wall, and the proximal portion of the lateral wall of the LV.�EF 35 to 40%. Grade 2
DD. Mild MR, moderate MAC, minimal to mild aortic stenosis, moderate tricuspid regurgitation. PAP 53�mmHg.)
Labs: Labs Reviewed by me
--- NOTE | 2023-05-07 11:18 | W.PN.NEPH.PH ---
Today's Communication / Plan
-
Hd tomorrow
Assessment/Plan
-
IMP:
Sepsis(fever, tachycardia) secondary to likely interstitial pneumonia
ESRD on hemodialysis on Wednesday, , Wednesday
Left UE AVF
Acute on chronic macrocytic anemia
Chronic anemia secondary to renal disease
Hypokalemia
Constipation
Chronic urinary burning
CAD
Chronic combined HFrEF EF 35-40%, [id number]
COPD
Type 2 diabetes
MDS
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
BPH
GERD
Poor appetite/failure to thrive-on marinol
Plan:
A/w sob post HD on 05/03
will attempt to push u/f on Hd tomorrow as hemodynamically tolerated
suspected to have PNA, on abx per primary
hemodynamically stable
plan HD tomorrow, no heparin due to low plt
resume phos binder
renal diet with FR
d/w pt
-
-
Date of Service: May 07, 2023
CC / HPI / ROS
-
Chief Complaint:
ESRD
History of Present Illness:
ESRD TTS
on doxy and zosyn re: PNA
Review of Systems:
no fevers
on O2
Labs
-
Labs:
WBC 5.4 10^3/uL (4.8-10.8) 05/07/23 08:40
RBC 2.34 10^6/uL (4.70-6.10) L 05/07/23 08:40
Hgb 7.3 g/dL (13.0-18.0) L 05/07/23 08:40
Hct 22.8 % (39.0-52.0) L 05/07/23 08:40
Plt Count 68 10^3/uL (130-400) L 05/07/23 08:40
Sodium 135 mmol/L (135-145) 05/06/23 08:35
Potassium 4.2 mmol/L (3.5-5.1) 05/06/23 08:35
Chloride 100 mmol/L (98-107) 05/06/23 08:35
Carbon Dioxide 25 mmol/L (22-30) 05/06/23 08:35
BUN 61 mg/dl (9-20) H 05/06/23 08:35
Creatinine 5.8 mg/dL (0.7-1.3) H* 05/06/23 08:35
eGFR 9.17 05/06/23 08:35
Glucose 133 mg/dl (70-99) H 05/06/23 08:35
Calcium 9.1 mg/dl (8.4-10.2) 05/06/23 08:35
Xfv-H-Pptbjfhgavi Pept > 69407 pg/ml 05/04/23 16:49
Albumin 3.4 g/dl (3.5-5.0) L 05/06/23 08:35
Physical Exam
-
Vital Signs:
Vital Signs
Temp Pulse Resp BP Pulse Ox
98.5 F 76 16 136/60 96
05/07/23 07:15 05/07/23 07:37 05/07/23 07:37 05/07/23 07:15 05/07/23 07:37
Cardiovascular:: Regular rate and rhythm
Respiratory:: Bilateral: Rales
Lung Excursion:: Normal
Abdomen:: Nontender and Soft
Bowel Sounds:: Normal
Extremity Edema:: None: Bilateral:
Velazco Catheter: No
Other Findings::
AVF
[2023-05-07 12:03] LABS: Glucose - Point of Care 168 mg/dl (70-99)
[2023-05-07] MEDS: NOVOLOG FLEXPEN-LOW RESISTANCE 1 UNITS SC ×2 (12:26→17:23)
--- NOTE | 2023-05-07 12:51 | CON.PUL ---
Consultation
Consultation Request
Date/Time Consultation Requested: 05/07/23
Date/Time Consultation Performed: 05/07/23
Performing Provider: Josette
Reason for Consultation: SOB
Medical History
-
History of Present Illness:
Patient is an 82-year-old male with past medical history of ESRD on HD, CAD, chronic HFrEF, COPD with severe restriction on PFTs, diabetes, MDS, anemia of CKD, presenting to ER with generalized malaise and SOB. notes that he seems
progressively fatigued and worsened on HD. He has had increased lower extremity edema, weight loss with poor oral intake.�Has not had a BM in some time.
On arrival, proBNP >97904. CXR with interstitial pattern, possbily related to HF. His notes that this is his 4th admission for similar in <6 mos.
Follows at [facility] pulmonary Dr Miranda for COPD, placed on Anoro and albuterol PRN. Last PFT wtih TLC 40% which is severely reduced.
Past Medical History
Past Medical History: Other (see list below)
Social History
Tobacco: Former Smoker
Alcohol: None
Drug: None
Family History
Family History: Reviewed & Not Pertinent
Allergies / Home Medications
Allergies
Allergy/AdvReac Type Severity Reaction Status Date / Time
adhesive Allergy Unknown Verified 05/04/23 16:35
baclofen Allergy confusion, Verified 05/04/23 16:35
extrapyramidal
symptoms
metoclopramide [From Reglan] Allergy Unknown Verified 05/04/23 16:35
Home Medications
Medication Instructions Recorded Confirmed Last Taken Type
vitamin B complex 1 tab PO DAILY Supplement 10/08/17 05/04/23 06/07/22 History
aspirin 81 mg tablet,delayed 81 mg PO QPM Blood clot 01/11/19 05/04/23 06/06/22 History
release prevention/tx
coenzyme Q10 100 mg capsule (Co 100 mg PO BID Heart 01/11/19 05/04/2306/07/23 History
Q-10) disease/condition
darbepoetin дмитрий in polysorbat 10 0 dose IJ DAILYPRN PRN low hb 01/11/19 05/04/23 05/28/22 History
mcg/0.4 mL in polysorbate
injection syringe (Aranesp)
finasteride 5 mg tablet 5 mg PO DAILY Urinary issue 01/11/19 05/04/23 06/07/22 History
calcium acetate 667 mg tablet 1,334 mg PO MEALS High phosphorous 09/15/19 05/04/23 06/07/22 History
insulin aspart U-100 100 unit/mL 0 units SC TIDPRN PRN high blood 09/15/19 05/04/23 Unknown History
(3 mL) subcutaneous pen (Novolog sugar
FlexPen U-100 Insulin aspart)
rosuvastatin 10 mg tablet 10 mg PO QPM High cholesterol 09/15/19 05/04/23 06/07/22 History
furosemide 80 mg tablet 80 mg PO SUMOWEFR Fluid 02/16/22 05/04/23 06/07/22 History
retention/Swelling
albuterol sulfate 90 mcg/actuation 2 puff inhalation R Q4HPRN PRN 06/07/22 05/04/23 Unknown History
aerosol inhaler sob/wheezing
clopidogrel 75 mg tablet 75 mg PO DAILY Blood clot 06/07/22 05/04/23 06/06/22 History
prevention/tx
umeclidinium 62.5 mcg-vilanterol 1 inh inhalation R DAILY 06/07/22 05/04/23 Unknown History
25 mcg/actuation powdr for Lung/breathing issues
inhalation (Anoro Ellipta)
acetaminophen 500 mg tablet 500 mg PO TID PRN mild pain 10/06/22 05/04/23 Unknown History
(Tylenol Extra Strength)
cholecalciferol (vitamin D3) 25 25 mcg PO BID Supplement 10/06/22 05/04/23 Unknown History
mcg (1,000 unit) capsule (Vitamin
D3)
docusate sodium 100 mg capsule 100 mg PO BID Constipation 10/06/22 05/04/23 Unknown History
(Colace)
loratadine 10 mg tablet 10 mg PO DAILY Allergies 10/06/22 05/04/23 Unknown History
(Allerclear)
metoprolol succinate 25 mg 25 mg PO BID Heart Failure 10/06/22 05/04/23 Unknown History
tablet,extended release 24 hr
pantoprazole 40 mg tablet,delayed 40 mg PO DAILY Gastrointestinal 10/06/22 05/04/23 Unknown History
release (Protonix) Issue
B complex 11-folic acid 1 mg-C 100 1 tab PO QPM Supplement 05/04/23 05/04/23 Unknown History
mg-biotin 300 mcg-zinc 50 mg
tablet (Dialyvite)
biotin 5,000 mcg chewable tablet 5,000 mcg PO BID Supplement 05/04/23 05/04/23 Unknown History
famotidine 40 mg tablet 40 mg PO BID Gastrointestinal Issue 05/04/23 05/04/23 Unknown History
insulin detemir U-100 100 unit/mL 10 - 12 unit SC QPM Diabetes 05/04/23 05/04/23 Unknown History
subcutaneous solution (Levemir
U-100 Insulin)
megestrol 625 mg/5 mL (125 mg/mL) 625 mg PO SUMOWEFR Appitite 05/04/23 05/04/23 Unknown History
oral suspension
Review of Systems
-
History Source: Patient
All other systems: Negative unless noted
Vitals / Labs / Diagnostic Testing
Vital Signs
Temp Pulse Resp BP Pulse Ox
98.5 F 76 16 136/60 96
05/07/23 07:15 05/07/23 07:37 05/07/23 07:37 05/07/23 07:15 05/07/23 07:37
Lab Data
05/07/23 08:40
05/06/23 08:35
Microbiology
05/04/23 16:49 Blood/Venous Blood Culture - Preliminary
No Growth in 48 hours- Final report to follow
05/05/23 21:05 Urine Urine Culture - Final
NO GROWTH
05/04/23 16:49 Blood/Venous Blood Culture - Preliminary
No Growth in 48 hours- Final report to follow
05/05/23 05:54 Nose MRSA Screen - Final
No Methicillin Resistant Staphylococcus aureus isolated.
05/04/23 16:49 Nasal Swab Influenza Types A & B (DUY) - Final
Negative for Influenza A & B, NAAT
Negative results must be combined with clinical observations
and patient history.
Nucleic Acid Amplification test (NAAT)performed on the
[employer] platform.
Diagnostic Testing:
Physical Exam
-
HEENT: Normocephalic, Anicteric and Moist Mucous Membranes
Cardiovascular: S1/S2 and Regular Rhythm
Respiratory: Clear and Non-Labored Respirations
GI: Soft, Non Distended and Non Tender
Neurology: Awake, Alert, Oriented, AO x 3 and No Motor Deficits
Skin: Warm, Dry and Good Color
General: Comfortable, Poor Appetite and Other (NAD, fatigued/eyes closed)
Assessment
-
Patient is an 82-year-old male with past medical history of ESRD on HD, CAD, chronic HFrEF, COPD with severe restriction on PFTs, diabetes, MDS, anemia of CKD, presenting to ER with generalized malaise and SOB. notes that he seems
progressively fatigued and worsened on HD. He has had increased lower extremity edema, weight loss with poor oral intake.�Has not had a BM in some time. On arrival, proBNP >73414. CXR with interstitial pattern, possbily related to HF. His
notes that this is his 4th admission for similar in <6 mos.
Acute hypoxemic respiratory failure
Acute on chronic HFrEF with recurrent admissions, proBNP >32387
4th admission in <6 mos
Generalized malaise, progressive
Weight loss with decreased PO intake
Acute on chronic anemia, baseline >9
Acute on chronic thrombocytopenia, baseline >110
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
Severe restrictive lung disease
COPD cannot be excluded given severe restriction, there is risk for COPD given smoking history
Follows at [facility] pulmonary Dr Miranda for COPD, placed on Anoro and albuterol PRN.
Last PFT wtih TLC 40% which is severely reduced.
Suspect chronic ILD changes
Bronchiectasis
Severe triple-vessel disease status post CABG �16 Jan 2019
CHF: TTE 02-04-22 with LVEF 50% and inferior hypokinesis
CKD on HD ()
MDS, chronic thrombocytopenia, anemia
DM2
BPH
HTN
HLD
GERD
AAA
R shoulder prosthesis
Arthritis
History of Whipple's procedure
Chronic liver disease
Diverticulosis
Mild aortic stenosis
BPH
Minimal fibrosis on CT 2016
Pancreatic cyst removal, cholecystectomy, orthopedic surgery with implantation, colonoscopy
Former smoker: 60 py, 1 [id number], 2 [id number], stopped 20 years ago
Plan
Continue O2 protocol, placed on 3L NC
Not on home O2 or BDs
Follows with pulm at [facility], placed on anoro and albuterol
Asp precs
Can resume home inhalers
DNs prn
Acute on chronic CHF: proBNP >94171
Though he seems clinically euvolemic, this may impact his oxygen demands given his pre-existing lung history
Severe restriction, TLC 40%
Abnormal TTE with reduced EF and WMAs--reviewed from prior hospitalizations
This is his 4th admission per in the last 6 mos
Admits noncompliance with diet and fluid intake, but does complies with HD ()
Renal consulted for HD
Plan for volume removal
He is showing signs of FTT, lack of appetite/weight loss
His QoL overall seems poor
would like to discuss GOC but she notes her has not been ready
He still would like to remains full code but does not want to be prolonged on vent
He has no advanced directives
Am doubtful of infection, tmax 100.1F
Can stop abx in my opinion and observe off
Teixeira culture, await results
We will follow
Diagnostic Data
CXR 02-19, c/w previous
CXR 02-18, c/w 02-16 and 12-19, increased lung water content c/w pulmonary edema. Sternal wiring, R shoulder prosthesis
CT Chest 09/10/22- CHEST: There is no axillary, mediastinal or hilar adenopathy. The heart size is mildly enlarged. There are moderate coronary artery calcifications. Patient is status post median sternotomy. There are no pleural effusions. Chronic
lung changes. Scarring in the anterior right upper lobe and posterior medial lower lobes bilaterally. Mild bronchiectasis. No pleural effusion.
Chest CTA 02-16-22 IMPRESSION:
1. No evidence of pulmonary embolism.
2. Findings consistent with mild CHF with small bilateral pleural effusions.
3. Superimposed patchy pneumonia in the upper lobes bilaterally.
ECHO 03/29/23- The left ventricle is normal in size with normal wall thicknesses.� There is�a moderate to large area of severe hypokinesis/akinesis involving the�inferoseptum, the inferior wall and the proximal portion of the lateral wall of�the left
ventricle.� Remaining wall motion low normal.� Estimated ejection�fraction 35 to 40%.� There is grade 2 diastolic dysfunction.
TTE 02-04 CONCLUSIONS:
�1.� Overall low normal LV function with an EF roughly estimated at 50%.� There�appears to be proximal inferior hypokinesis.� Remaining wall motion probably�low normal.� Study is technically limited and a localized wall motion
�abnormality superimposed cannot definitively be excluded.
�2.� RV function grossly normal
�3.� Mild increase in the right ventricular systolic pressure is seen.
PFT 03/20/22: Spirometry- FVC is 2.11L or 60%. FEV1 is 1.68L or 68%. FEV1/FVC Ratio of 80%. FEV1 post bronchodilator with no significant response.
Lung volumes: TLC is 3.21L or 49%. RV is 1.10L or 40%. RV/TLC Ratio of 34%. Diffusion capacity: DLCO is 10.09 or 45%
Impression: Spirometry shows restrictive pattern and no significant response to bronchodilator challenge, TLC severely decreased, diffusion capacity is moderately decreased, improves but remains in moderate decrease when adjusted for hemoglobin,
normalizes to alveolar volume. �
6MWT 03/20/22- baseline O2 100% on RA. HR 84. O2 delano 92%, HR max 92, 2/10 dyspnea score, ambulated total distance of 804 ft, no O2 required
[2023-05-07 15:10] VITALS: BP 144/71
--- NOTE | 2023-05-07 16:17 | CM ---
CM following re: d/c planning
Chart reviewed
Pt discharge not anticipated for 24-48 hours
Pt respiratory status is compromised and po intake is poor
Per the patient's spouse, this is the 4th admission in less than 6 months with similar admitting dx
Pt continues on IV antibiotics and awaiting input from cards & pulm
CM will continue to monitor patient progress and assist with needs at d/c as indicated
PLAN; CM following for needs, home w/VN vs SNF
[2023-05-07 16:38] LABS: Glucose - Point of Care 198 mg/dl (70-99)
[2023-05-07] MEDS: ASPIR LOW (ENTERIC COATED) 81 MG PO (17:20)
[2023-05-07] MEDS: CRESTOR 10 MG PO (17:20)
[2023-05-07] MEDS: LEVEMIR 0.100000000000000006 UNITS SC (17:20)
[2023-05-07] MEDS: ProAIR HFA INHALER 2 PUFF INH (21:16)
[2023-05-07 21:53] LABS: Glucose - Point of Care 167 mg/dl (70-99)
[2023-05-07 23:27] VITALS: BP 128/86
[2023-05-07] MEDS: MELATONIN 3 MG PO (23:31)
[2023-05-08] MEDS: ProAIR HFA INHALER 2 PUFF INH (03:36)
[2023-05-08 05:43] VITALS: BMI 25.0
[2023-05-08] MEDS: ZOSYN 50 IV (06:10)
[2023-05-08 07:35] VITALS: BP 158/60
[2023-05-08] MEDS: STRIVERDI RESPIMAT 2 PUFF INH (07:43)
[2023-05-08] MEDS: SPIRIVA RESPIMAT 2.5 MCG 2 PUFF INH (07:43)
[2023-05-08 08:19] LABS: Hematocrit 21.8 % (39.0-52.0); Hemoglobin 7.3 g/dL (13.0-18.0); Mean Corp Hgb Conc. 33.5 g/dL (33.0-37.0); Mean Corpuscular Hgb 31.2 pg (27.0-31.0); Mean Corpuscular Volume 93.2 fL (80.0-94.0); Mean Platelet Volume 11.9 fL (7.4-10.4); Platelet Count 78 10^3/uL (130-400); Red Blood Cell Count 2.34 10^6/uL (4.70-6.10); Red Cell Dist. Width 15.7 % (11.5-14.5)
[2023-05-08] MEDS: RETACRIT 10000 UNITS IV (09:18)
--- NOTE | 2023-05-08 09:24 | W.PN.NEPH.HD ---
Assessment
-
Patient seen on dialysis
Systolic blood pressure 158 8 current ultrafiltration rate
Progress Note - Hemodialysis
-
Date of Service: May 08, 2023
Duration: 30 minutes and 3 hours
Potassium Bath: 3
Calcium Bath: 2.5
Opti-Dialyzer: 160
Ultrafiltration: Other (Will attempt to increase UF to 2 kg given respiratory compromise)
Blood Flow: 400
Dialysate Flow: 600
Heparin: None
EPO: 10,000
[2023-05-08 09:29] LABS: Carbon Dioxide 24 mmol/L (22-30); Chloride 92 mmol/L (98-107); Potassium 4.5 mmol/L (3.5-5.1); Sodium 133 mmol/L (135-145)
[2023-05-08 09:50] LABS: Glucose - Point of Care 98 mg/dl (70-99)
[2023-05-08] MEDS: NOVOLOG FLEXPEN-LOW RESISTANCE SC (09:54)
--- NOTE | 2023-05-08 10:52 | W.PN.HOSP.TC ---
Today's Communication/Plan
-
dc abx
laxatives
last CT scan of chest 09/06, will order
Assessment / Plan
Assessment / Plan
05/04/23 16:49 Blood/Venous Blood Culture - Preliminary
No Growth in 48 hours- Final report to follow
05/04/23 16:49 Blood/Venous Blood Culture - Preliminary
No Growth in 48 hours- Final report to follow
05/05/23 05:54 Nose MRSA Screen - Final
No Methicillin Resistant Staphylococcus aureus isolated.
05/04/23 16:49 Nasal Swab Influenza Types A & B (DUY) - Final
Negative for Influenza A & B, NAAT
Negative results must be combined with clinical observations
and patient history.
Nucleic Acid Amplification test (NAAT)performed on the
[employer] platform.
CXR 05/04/23: Markedly low lung volumes with crowding of the central/vascular markings. Slightly prominent bilateral pulmonary markings most likely predominantly interstitial. Some of several differential diagnostic possibilities include interstitial
pneumonitis and interstitial edema.
CXR 05/06/23: Slight progression of markings bilaterally which may be interstitial and with some superimposed alveolar component which could represent pneumonitis/pneumonia. Atypical pattern of pulmonary edema cannot be differentiated.
acute hypoxemic respiratory insufficiency due to interstitial pneumonia and possibly acute on chronic HFrEF:
-COVID/Flu NEG
-BCxs NGTD
-currently on 2L NC O2
-currently on Zosyn/doxycycline - will stop
-daily wts
-It is unclear at this time if the patient's acute hypoxemic respiratory failure is due to interstitial pneumonia, acute on chronic HFrEF, or both. Will c/s pulm and cards.
inputs of consultants appreciated, Pulm feels comfortable stopping abx and thus will stop
Acute on chronic macrocytic anemia:
-likely due to renal disease
-On Aranesp BOOTMAKER HAND
-Hemoglobin 7.3. Transfuse for Hb<7.
-Hemetest stool
Other problems:
Hypokalemia, resolved
ESRD: Cont HD T//S
Chronic urinary burning: U/A with pyuria. Currently on Zosyn, follow UCx
CAD: cont ASA/Plavix/stating/BB
Chronic HFrEF: cont Lasix/BB
COPD, not in acute exac: cont Spiriva/Striverdi
DM2: a1c 7.1, cont Levemir/SSI/accuchecks
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
BPH: Continue finasteride
GERD: Continue PPI, Pepcid
Poor appetite/failure to thrive: Continue megesterol
constipation, pt requests Dulcolax, will order
reviewed with billy Novak
FULL/heparin
Anticipated Discharge: > 48 hours
Subjective/Interval History
-
Date of Service: May 08, 2023
States just does not feel right
Objective Data
-
Labs:
Laboratory Results
05/08/23
08:11
WBC 6.0
Hgb 7.3 L
Hct 21.8 L
Plt Count 78 L
Sodium 133 L
Potassium 4.5
Chloride 92 L
Carbon Dioxide 24
Vital Signs:
Vital Signs
Temp Pulse Resp BP Pulse Ox
97.4 F 90 16 158/60 97
05/08/23 07:35 05/08/23 07:46 05/08/23 07:46 05/08/23 07:35 05/08/23 07:46
I&O
05/07/23 05/08/23 05/09/23
06:59 06:59 06:59
Intake Total 600 / 600 720 / 720
Output Total 225 / 225
Balance 600 / 600 495 / 495
Review of Systems
-
History Source: Patient and Coordinated Provider
Constitutional: Denies Fever
EENT: Reports No Symptoms Reported
Respiratory: Reports No Symptoms; Denies Cough or Trouble Breathing
Cardiac: Reports No Symptoms; Denies Chest Pain
Abdomen/GI: Reports No Symptoms; Denies Abdominal Pain
Physical Exam
-
General: Well Developed, Well Nourished and No Apparent Distress
HEENT: Normocephalic, Atraumatic and Moist Mucous Membranes
Respiratory: Rales (bibasilar rales)
Cardiac: Regular Rhythm and S1/S2
GI: Soft, Nontender and Nondistended
Musculoskeletal: No Clubbing, No Cyanosis and No Edema
Neuro: Awake, Alert and Oriented
--- NOTE | 2023-05-08 11:10 | W.PN.PUL.V3 ---
Today's Communication / Plan
-
Wean oxygen
Assess discharge supplemental oxygen needs
Continue inhalers and nebulizers
Mucolytic's
Fluid removal with hemodialysis
Outpatient pulmonary follow-up
Assessment
-
Patient is an 82-year-old male with past medical history of ESRD on HD, CAD, chronic HFrEF, COPD with severe restriction on PFTs, diabetes, MDS, anemia of CKD, presenting to ER with generalized malaise and SOB. notes that he seems
progressively fatigued and worsened on HD. He has had increased lower extremity edema, weight loss with poor oral intake.�Has not had a BM in some time. On arrival, proBNP >34905. CXR with interstitial pattern, possbily related to HF. His
notes that this is his 4th admission for similar in <6 mos.
Acute hypoxemic respiratory failure
Acute on chronic HFrEF with recurrent admissions, proBNP >30546
4th admission in <6 mos
Generalized malaise, progressive
Weight loss with decreased PO intake
Acute on chronic anemia, baseline >9
Acute on chronic thrombocytopenia, baseline >110
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
Severe restrictive lung disease
COPD cannot be excluded given severe restriction, there is risk for COPD given smoking history
Follows at [facility] pulmonary Dr Miranda for COPD, placed on Anoro and albuterol PRN.
Last PFT wtih TLC 40% which is severely reduced.
Suspect chronic ILD changes
Bronchiectasis
Severe triple-vessel disease status post CABG �16 Jan 2019
CHF: TTE 02-04-22 with LVEF 50% and inferior hypokinesis
CKD on HD ()
MDS, chronic thrombocytopenia, anemia
DM2
BPH
HTN
HLD
GERD
AAA
R shoulder prosthesis
Arthritis
History of Whipple's procedure
Chronic liver disease
Diverticulosis
Mild aortic stenosis
BPH
Minimal fibrosis on CT 2016
Pancreatic cyst removal, cholecystectomy, orthopedic surgery with implantation, colonoscopy
Former smoker: 60 py, 1 [id number], 2 [id number], stopped 20 years ago
Plan
Fairly stable from a respiratory perspective
Wean supplemental oxygen
Assess discharge supplemental oxygen needs-told patient he might require oxygen at the time of discharge
Aspiration precautions
DuoNebs
Resume home inhalers once discharged
Hemodialysis Wednesday- and Wednesday
Monitor renal function, electrolytes, intake/output, lower extremity edema and weight
Replace electrolytes as needed
Nephrology following
He has signs of FTT, lack of appetite/weight loss
His QoL overall seems poor
would like to discuss GOC but she notes her has not been ready
He still would like to remains full code but does not want to be prolonged on vent
He has no advanced directives
Observe off antibiotics
DVT prophylaxis-on subcu heparin
GI prophylaxis-on pantoprazole and famotidine with
Nutrition
Physical therapy
Reviewed with nursing
Outpatient pulmonary follow-up with Dr. Stuart
Diagnostic Data
CXR 02-19, c/w previous
CXR 02-18, c/w 02-16 and 12-19, increased lung water content c/w pulmonary edema. Sternal wiring, R shoulder prosthesis
CT Chest 09/10/22- CHEST: There is no axillary, mediastinal or hilar adenopathy. The heart size is mildly enlarged. There are moderate coronary artery calcifications. Patient is status post median sternotomy. There are no pleural effusions. Chronic
lung changes. Scarring in the anterior right upper lobe and posterior medial lower lobes bilaterally. Mild bronchiectasis. No pleural effusion.
Chest CTA 02-16-22 IMPRESSION:
1. No evidence of pulmonary embolism.
2. Findings consistent with mild CHF with small bilateral pleural effusions.
3. Superimposed patchy pneumonia in the upper lobes bilaterally.
ECHO 03/29/23- The left ventricle is normal in size with normal wall thicknesses.� There is�a moderate to large area of severe hypokinesis/akinesis involving the�inferoseptum, the inferior wall and the proximal portion of the lateral wall of�the left
ventricle.� Remaining wall motion low normal.� Estimated ejection�fraction 35 to 40%.� There is grade 2 diastolic dysfunction.
TTE 12-21 CONCLUSIONS:
�1.� Overall low normal LV function with an EF roughly estimated at 50%.� There�appears to be proximal inferior hypokinesis.� Remaining wall motion probably�low normal.� Study is technically limited and a localized wall motion
�abnormality superimposed cannot definitively be excluded.
�2.� RV function grossly normal
�3.� Mild increase in the right ventricular systolic pressure is seen.
PFT 03/20/22: Spirometry- FVC is 2.11L or 60%. FEV1 is 1.68L or 68%. FEV1/FVC Ratio of 80%. FEV1 post bronchodilator with no significant response.
Lung volumes: TLC is 3.21L or 49%. RV is 1.10L or 40%. RV/TLC Ratio of 34%. Diffusion capacity: DLCO is 10.09 or 45%
Impression: Spirometry shows restrictive pattern and no significant response to bronchodilator challenge, TLC severely decreased, diffusion capacity is moderately decreased, improves but remains in moderate decrease when adjusted for hemoglobin,
normalizes to alveolar volume. �
6MWT 03/20/22- baseline O2 100% on RA. HR 84. O2 delano 92%, HR max 92, 2/10 dyspnea score, ambulated total distance of 804 ft, no O2 required
Subjective Data
-
Date of Service:
Date of Service: May 08, 2023
Chief Complaint: Pulmonary Follow Up and Dyspnea Follow Up
Subjective:
Feels better, no complaints of shortness of breath at rest, chest pain, chest tightness, productive cough or abdominal pain, seen on hemodialysis
Review of Systems
General: Other
Objective Data
Data Reviewed
Vital Signs / I&O:
Vital Signs
Temp Pulse Resp BP Pulse Ox
97.4 F 90 16 158/60 97
05/08/23 07:35 05/08/23 07:46 05/08/23 07:46 05/08/23 07:35 05/08/23 07:46
Intake and Output
05/07/23 05/08/23 05/09/23
06:59 06:59 06:59
Intake Total 600 / 600 720 / 720
Output Total 225 / 225
Balance 600 / 600 495 / 495
SaO2: 97
Nasal Cannula flow liters per minute: 2
Physical Exam
General: Respiratory Distress (n) and Comfortable
HEENT: Normocephalic, Anicteric and Moist Mucous Membranes
Cardiovascular: Regular Rhythm
Respiratory: Wheeze (n), Crackles, Rhonchi (n), Non-Labored Respirations, Accessory Resp Muscle Use (n) and Stridor
GI: Soft, Non Distended and Non Tender
Neurology: Awake, Alert and No Motor Deficits
Skin: Warm, Good Color, Cyanosis (n), Jaundice (n) and Rash (n)
Labs/Micro/Reports
Lab Data
05/08/23 08:11
05/08/23 08:11
Microbiology
05/04/23 16:49 Blood/Venous Blood Culture - Preliminary
No Growth in 72 hours- Final report to follow
05/04/23 16:49 Blood/Venous Blood Culture - Preliminary
No Growth in 72 hours- Final report to follow
05/05/23 21:05 Urine Urine Culture - Final
NO GROWTH
05/05/23 05:54 Nose MRSA Screen - Final
No Methicillin Resistant Staphylococcus aureus isolated.
[2023-05-08] MEDS: MUCINEX 1200 MG PO ×2 (11:47→20:34)
[2023-05-08] MEDS: PROTONIX 40 MG PO (11:47)
[2023-05-08] MEDS: TOPROL XL 25 MG PO ×2 (11:47→20:38)
[2023-05-08] MEDS: PLAVIX 75 MG PO (11:47)
[2023-05-08] MEDS: CLARITIN 10 MG PO (11:48)
[2023-05-08] MEDS: B COMPLEX w/VITAMIN C 1 CAPLET PO (11:48)
[2023-05-08] MEDS: PEPCID 20 MG PO (11:48)
[2023-05-08] MEDS: PROSCAR 5 MG PO (11:48)
[2023-05-08] MEDS: VITAMIN D3 (cholecalciferol) 25 MCG PO ×2 (11:48→20:34)
[2023-05-08] MEDS: MIRALAX 17 GRAMS PO (11:48)
[2023-05-08] MEDS: PHOSLO 1334 MG PO ×2 (11:48→17:18)
[2023-05-08] MEDS: VIBRAMYCIN PO (11:49)
[2023-05-08] MEDS: HEPARIN SC (11:49)
[2023-05-08] MEDS: COLACE 100 MG PO ×2 (11:50→20:33)
[2023-05-08] MEDS: DULCOLAX 5 MG PO ×2 (11:55→17:27)
[2023-05-08 13:19] LABS: Glucose - Point of Care 187 mg/dl (70-99)
[2023-05-08] MEDS: NOVOLOG FLEXPEN-LOW RESISTANCE 1 UNITS SC (13:47)
[2023-05-08] MEDS: PHOSLO PO (13:48)
[2023-05-08 15:35] VITALS: BP 133/65
[2023-05-08] MEDS: CRESTOR 10 MG PO (17:18)
[2023-05-08] MEDS: ASPIR LOW (ENTERIC COATED) 81 MG PO (17:18)
[2023-05-08 17:42] LABS: Glucose - Point of Care 204 mg/dl (70-99)
[2023-05-08] MEDS: NOVOLOG FLEXPEN-LOW RESISTANCE 2 UNITS SC (17:48)
[2023-05-08] MEDS: LEVEMIR SC (18:22)
[2023-05-08] MEDS: LEVEMIR 0.100000000000000006 UNITS SC (19:33)
[2023-05-08] MEDS: HEPARIN 5000 UNITS SC (20:35)
[2023-05-08] MEDS: DULCOLAX 10 MG RECTAL (20:39)
[2023-05-08 21:40] LABS: Glucose - Point of Care 169 mg/dl (70-99)
[2023-05-08 23:15] VITALS: BP 126/79
[2023-05-08 23:16] VITALS: BP 126/79
[2023-05-09 05:51] VITALS: BMI 24.2
[2023-05-09 06:00] VITALS: BMI 24.2
[2023-05-09 07:30] VITALS: BP 136/69; BP 143/70
[2023-05-09 07:35] LABS: Glucose - Point of Care 112 mg/dl (70-99)
[2023-05-09] MEDS: STRIVERDI RESPIMAT 2 PUFF INH (07:42)
[2023-05-09] MEDS: SPIRIVA RESPIMAT 2.5 MCG 2 PUFF INH (07:42)
[2023-05-09] MEDS: NOVOLOG FLEXPEN-LOW RESISTANCE SC (07:44)
[2023-05-09 07:45] LABS: Mean Corpuscular Hgb 30.8 pg (27.0-31.0); Mean Corpuscular Volume 96.2 fL (80.0-94.0); Mean Platelet Volume 12.3 fL (7.4-10.4); Platelet Count 87 10^3/uL (130-400)
[2023-05-09] MEDS: CLARITIN 10 MG PO (08:40)
[2023-05-09] MEDS: PHOSLO 1334 MG PO ×2 (08:40→12:47)
[2023-05-09] MEDS: MIRALAX 17 GRAMS PO (08:41)
[2023-05-09] MEDS: COLACE 100 MG PO (08:41)
[2023-05-09] MEDS: PROTONIX 40 MG PO (08:41)
[2023-05-09] MEDS: VITAMIN D3 (cholecalciferol) 25 MCG PO (08:41)
[2023-05-09] MEDS: MUCINEX 1200 MG PO (08:41)
[2023-05-09] MEDS: PLAVIX 75 MG PO (08:41)
[2023-05-09] MEDS: PROSCAR 5 MG PO (08:41)
[2023-05-09] MEDS: MEGACE ORAL SUSPENSION 625 MG PO (08:49)
[2023-05-09] MEDS: B COMPLEX w/VITAMIN C 1 CAPLET PO (08:49)
[2023-05-09] MEDS: HEPARIN 5000 UNITS SC (08:51)
[2023-05-09] MEDS: LASIX 80 MG PO (08:53)
[2023-05-09] MEDS: TOPROL XL 25 MG PO (08:54)
--- NOTE | 2023-05-09 10:51 | W.PN.PUL.V3 ---
Today's Communication / Plan
-
Wean oxygen
Assess discharge supplemental oxygen needs
Hemodialysis per nephrology
Resume inhalers at time of discharge
Outpatient pulmonary follow-up
Assessment
-
Patient is an 82-year-old male with past medical history of ESRD on HD, CAD, chronic HFrEF, COPD with severe restriction on PFTs, diabetes, MDS, anemia of CKD, presenting to ER with generalized malaise and SOB. notes that he seems
progressively fatigued and worsened on HD. He has had increased lower extremity edema, weight loss with poor oral intake.�Has not had a BM in some time. On arrival, proBNP >90526. CXR with interstitial pattern, possbily related to HF. His
notes that this is his 4th admission for similar in <6 mos.
Acute hypoxemic respiratory failure
Acute on chronic HFrEF with recurrent admissions, proBNP >13903
4th admission in <6 mos
Generalized malaise, progressive
Weight loss with decreased PO intake
Acute on chronic anemia, baseline >9
Acute on chronic thrombocytopenia, baseline >110
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
Severe restrictive lung disease
COPD cannot be excluded given severe restriction, there is risk for COPD given smoking history
Follows at [facility] pulmonary Dr Miranda for COPD, placed on Anoro and albuterol PRN.
Last PFT wtih TLC 40% which is severely reduced.
Suspect chronic ILD changes
Bronchiectasis
Severe triple-vessel disease status post CABG �16 Jan 2019
CHF: TTE 02-04-22 with LVEF 50% and inferior hypokinesis
CKD on HD ()
MDS, chronic thrombocytopenia, anemia
DM2
BPH
HTN
HLD
GERD
AAA
R shoulder prosthesis
Arthritis
History of Whipple's procedure
Chronic liver disease
Diverticulosis
Mild aortic stenosis
BPH
Minimal fibrosis on CT 2017
Pancreatic cyst removal, cholecystectomy, orthopedic surgery with implantation, colonoscopy
Former smoker: 60 py, 1 [id number], 2 [id number], stopped 20 years ago
Plan
Respiratory status continues to improve
Wean supplemental oxygen-90% on room air at rest
Check rest and exercise room air oximetry to assess for discharge supplemental oxygen needs-reviewed with nursing
Aspiration precautions continue
DuoNebs continues
Resume home inhalers once discharged
Patient is on hemodialysis Wednesday- and Wednesday
Follow renal function, electrolytes, intake/output, lower extremity edema and weight
Replace electrolytes as needed
Nephrology following-correspondence reviewed
Patient does have signs of FTT, lack of appetite/weight loss
His quality of life overall seems poor
would like to discuss GOC but she notes her has not been ready
He still would like to remains full code but does not want to be prolonged on vent
He has no advanced directives
Continue to observe off antibiotics
DVT prophylaxis-on heparin
GI prophylaxis-on pantoprazole and famotidine with
Nutrition
Physical therapy
Reviewed with nursing
Discharge planning ongoing
Outpatient pulmonary follow-up with Dr. Stuart
Diagnostic Data
CXR -, c/w previous
CXR 02-18, c/w 02-16 and 12-19, increased lung water content c/w pulmonary edema. Sternal wiring, R shoulder prosthesis
CT Chest 09/10/22- CHEST: There is no axillary, mediastinal or hilar adenopathy. The heart size is mildly enlarged. There are moderate coronary artery calcifications. Patient is status post median sternotomy. There are no pleural effusions. Chronic
lung changes. Scarring in the anterior right upper lobe and posterior medial lower lobes bilaterally. Mild bronchiectasis. No pleural effusion.
Chest CTA 02-16-22 IMPRESSION:
1. No evidence of pulmonary embolism.
2. Findings consistent with mild CHF with small bilateral pleural effusions.
3. Superimposed patchy pneumonia in the upper lobes bilaterally.
ECHO 03/29/23- The left ventricle is normal in size with normal wall thicknesses.� There is�a moderate to large area of severe hypokinesis/akinesis involving the�inferoseptum, the inferior wall and the proximal portion of the lateral wall of�the left
ventricle.� Remaining wall motion low normal.� Estimated ejection�fraction 35 to 40%.� There is grade 2 diastolic dysfunction.
TTE 12- CONCLUSIONS:
�1.� Overall low normal LV function with an EF roughly estimated at 50%.� There�appears to be proximal inferior hypokinesis.� Remaining wall motion probably�low normal.� Study is technically limited and a localized wall motion
�abnormality superimposed cannot definitively be excluded.
�2.� RV function grossly normal
�3.� Mild increase in the right ventricular systolic pressure is seen.
PFT 03/20/22: Spirometry- FVC is 2.11L or 60%. FEV1 is 1.68L or 68%. FEV1/FVC Ratio of 80%. FEV1 post bronchodilator with no significant response.
Lung volumes: TLC is 3.21L or 49%. RV is 1.10L or 40%. RV/TLC Ratio of 34%. Diffusion capacity: DLCO is 10.09 or 45%
Impression: Spirometry shows restrictive pattern and no significant response to bronchodilator challenge, TLC severely decreased, diffusion capacity is moderately decreased, improves but remains in moderate decrease when adjusted for hemoglobin,
normalizes to alveolar volume. �
6MWT 03/20/22- baseline O2 100% on RA. HR 84. O2 [place] 92%, HR max 92, 2/10 dyspnea score, ambulated total distance of 804 ft, no O2 required
Subjective Data
-
Date of Service:
Date of Service: May 09, 2023
Chief Complaint: Pulmonary Follow Up and Dyspnea Follow Up
Subjective:
Feels better, still some shortness of breath but not at rest, minimal chest congestion, no cough, abdominal pain, or chest pain
Review of Systems
General: Other (Per HPI)
Objective Data
Data Reviewed
Vital Signs / I&O:
Vital Signs
Temp Pulse Resp BP Pulse Ox
97.8 F 92 16 136/69 95
05/09/23 07:30 05/09/23 07:45 05/09/23 07:45 05/09/23 07:30 05/09/23 07:45
Intake and Output
05/08/23 05/09/23 05/10/23
06:59 06:59 06:59
Intake Total 720 / 720 660 / 660
Output Total 225 / 225
Balance 495 / 495 660 / 660
SaO2: 95
Nasal Cannula flow liters per minute: 2
Physical Exam
General: Respiratory Distress (n) and Comfortable
HEENT: Normocephalic, Anicteric and Moist Mucous Membranes
Cardiovascular: Regular Rhythm
Respiratory: Wheeze (n), Crackles, Rhonchi (n), Non-Labored Respirations, Accessory Resp Muscle Use (n) and Stridor
GI: Soft, Non Distended and Non Tender
Neurology: Awake, Alert and No Motor Deficits
Skin: Warm, Good Color, Cyanosis (n), Jaundice (n) and Rash (n)
Labs/Micro/Reports
Lab Data
05/09/23 07:20
05/08/23 08:11
Microbiology
05/04/23 16:49 Blood/Venous Blood Culture - Preliminary
No Growth in 4 days- Final report to follow
05/04/23 16:49 Blood/Venous Blood Culture - Preliminary
No Growth in 4 days- Final report to follow
05/05/23 21:05 Urine Urine Culture - Final
NO GROWTH
05/05/23 05:54 Nose MRSA Screen - Final
No Methicillin Resistant Staphylococcus aureus isolated.
--- NOTE | 2023-05-09 11:03 | W.PN.HOSP.TC ---
Today's Communication/Plan
-
dc to home
Assessment / Plan
Assessment / Plan
05/04/23 16:49 Blood/Venous Blood Culture - Preliminary
No Growth in 48 hours- Final report to follow
05/04/23 16:49 Blood/Venous Blood Culture - Preliminary
No Growth in 48 hours- Final report to follow
05/05/23 05:54 Nose MRSA Screen - Final
No Methicillin Resistant Staphylococcus aureus isolated.
05/04/23 16:49 Nasal Swab Influenza Types A & B (DUY) - Final
Negative for Influenza A & B, NAAT
Negative results must be combined with clinical observations
and patient history.
Nucleic Acid Amplification test (NAAT)performed on the
[employer] platform.
CXR 05/04/23: Markedly low lung volumes with crowding of the central/vascular markings. Slightly prominent bilateral pulmonary markings most likely predominantly interstitial. Some of several differential diagnostic possibilities include interstitial
pneumonitis and interstitial edema.
CXR 05/06/23: Slight progression of markings bilaterally which may be interstitial and with some superimposed alveolar component which could represent pneumonitis/pneumonia. Atypical pattern of pulmonary edema cannot be differentiated.
acute hypoxemic respiratory insufficiency due to COPD with restrictive lung disease and possibly acute on chronic HFrEF
probably at baseline status
-COVID/Flu NEG
-BCxs NGTD
-currently on 2L NC O2
-was on Zosyn/doxycycline - stopped
-daily wts
-acute hypoxemic respiratory failure is due to COPD with restrictive lung disease, . input of pulm and cards appreciated.
Pulm feels comfortable stopping abx and thus will stop. Pt has very significant burden if disease including chronic anemia from MDS, ESRD, deconditioning. Of note, he is feeling markedly improved overall since large passage of BM over past 24
hrs and would like to go home. Discussed with , pt has probably achieved optimal hospital status, with significant burden of chronic disease and thus discharge to follow up with his outpt physicians would be approriate.
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
Acute on chronic macrocytic anemia:
-likely due to renal disease
-On Aranesp DATA STEWARD
-Hemoglobin 8.0.
-Hemetest stool
Other problems:
Hypokalemia, resolved
ESRD: Cont HD T//S
Chronic urinary burning: U/A with pyuria. Currently on Zosyn, follow UCx
CAD: cont ASA/Plavix/stating/BB
Chronic HFrEF: cont Lasix/BB
COPD, not in acute exac: cont Spiriva/Striverdi
DM2: a1c 7.1, cont Levemir/SSI/accuchecks
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
BPH: Continue finasteride
GERD: Continue PPI, Pepcid
Poor appetite/failure to thrive: Continue megesterol
constipation, better
reviewed with Scarlet, nursing
reviewed with
FULL/heparin
will dc at this time
More than 30 minutes spent in discharge including
Final examination of the patient
Summarizing hospital stay
Instructions for continuing care to all relevant caregivers
Preparation of discharge records, prescriptions, and referral forms
Total time spent (in minutes): 45
Anticipated Discharge: Today
Subjective/Interval History
-
Date of Service: May 09, 2023
feels much better after extensive BM's and anxiously awaiting dc
Objective Data
-
Labs:
Laboratory Results
05/09/23
07:20
WBC 10.0
Hgb 8.0 L
Hct 25.0 L
Plt Count 87 L
Vital Signs:
Vital Signs
Temp Pulse Resp BP Pulse Ox
97.8 F 92 16 136/69 95
05/09/23 07:30 05/09/23 07:45 05/09/23 07:45 05/09/23 07:30 05/09/23 10:54
I&O
05/08/23 05/09/23 05/10/23
06:59 06:59 06:59
Intake Total 720 / 720 660 / 660
Output Total 225 / 225
Balance 495 / 495 660 / 660
Review of Systems
-
History Source: Patient and Family (reviewed with )
Constitutional: Denies Fever
EENT: Reports No Symptoms Reported
Respiratory: Reports Trouble Breathing (pt states at baseline status)
Cardiac: Reports No Symptoms
Abdomen/GI: Denies Constipated (resolved)
Genitourinary: Reports No Symptoms
Physical Exam
-
General: Well Developed, Well Nourished and No Apparent Distress
HEENT: Normocephalic, Atraumatic and Moist Mucous Membranes
Respiratory: Rales (bibasilar rales minimal) and Other (taking much deeper breaths today)
Cardiac: Regular Rhythm and S1/S2
GI: Soft, Nontender and Nondistended
Musculoskeletal: No Clubbing, No Cyanosis and No Edema
Neuro: Awake, Alert and Oriented
--- NOTE | 2023-05-09 11:34 | W.PN.NEPH.PH ---
Today's Communication / Plan
-
Likely discharge
Assessment/Plan
-
IMP:
Sepsis(fever, tachycardia) secondary to likely interstitial pneumonia
ESRD on hemodialysis on Wednesday, , Wednesday
Left UE AVF
Acute on chronic macrocytic anemia
Chronic anemia secondary to renal disease
Hypokalemia
Constipation
Chronic urinary burning
CAD
Chronic combined HFrEF EF 35-40%, [id number]
COPD
Type 2 diabetes
MDS
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
BPH
GERD
Poor appetite/failure to thrive-on marinol
Plan:
A/w sob post HD on 05/03
pushed u/f on Hd yesterday re: hypoxia
suspected to have PNA, on abx per primary
Likely discharge today
Next dialysis at [facility] on Wednesday
-
-
Date of Service: May 09, 2023
CC / HPI / ROS
-
Chief Complaint:
ESRD
History of Present Illness:
ESRD TTS
on doxy and zosyn re: PNA
Review of Systems:
no fevers
off O2
Labs
-
Labs:
WBC 10.0 10^3/uL (4.8-10.8) 05/09/23 07:20
RBC 2.60 10^6/uL (4.70-6.10) L 05/09/23 07:20
Hgb 8.0 g/dL (13.0-18.0) L 05/09/23 07:20
Hct 25.0 % (39.0-52.0) L 05/09/23 07:20
Plt Count 87 10^3/uL (130-400) L 05/09/23 07:20
Sodium 133 mmol/L (135-145) L 05/08/23 08:11
Potassium 4.5 mmol/L (3.5-5.1) 05/08/23 08:11
Chloride 92 mmol/L (98-107) L 05/08/23 08:11
Carbon Dioxide 24 mmol/L (22-30) 05/08/23 08:11
BUN 61 mg/dl (9-20) H 05/06/23 08:35
Creatinine 5.8 mg/dL (0.7-1.3) H* 05/06/23 08:35
eGFR 9.17 05/06/23 08:35
Glucose 133 mg/dl (70-99) H 05/06/23 08:35
Calcium 9.1 mg/dl (8.4-10.2) 05/06/23 08:35
Mmk-I-Pqaoubttsuf Pept > 22932 pg/ml 05/04/23 16:49
Albumin 3.4 g/dl (3.5-5.0) L 05/06/23 08:35
Physical Exam
-
Vital Signs:
Vital Signs
Temp Pulse Resp BP Pulse Ox
97.8 F 92 16 136/69 95
05/09/23 07:30 05/09/23 07:45 05/09/23 07:45 05/09/23 07:30 05/09/23 10:54
Cardiovascular:: Regular rate and rhythm
Respiratory:: Bilateral: Coarse
Lung Excursion:: Normal
Abdomen:: Nontender and Soft
Extremity Edema:: None: Bilateral:
Velazco Catheter: No
--- NOTE | 2023-05-09 12:19 | CM ---
Reviewed the chart notes and spoke with the patient and his spouse at the bedside. IMM signed and placed on chart. Patient is being discharged to home today with [facility], referral sent via [facility]. Patient's spouse will provide
transportation. CM continues to be available to patient/family and is monitoring medical plan for needs at discharge.
Plan: Discharge to home with [facility].
[2023-05-09 12:29] LABS: Glucose - Point of Care 150 mg/dl (70-99)
[2023-05-09 12:30] VITALS: BP 126/63
[2023-05-09] MEDS: NOVOLOG FLEXPEN-LOW RESISTANCE 1 UNITS SC (12:47)
--- NOTE | 2023-05-09 13:55 | W.DS.TRANS ---
DC Summary - Contract Attorney
-
Discharge Instructions:
Discharge Diagnosis/Procedures Acute Hypoxic Respiratory Failure, ESRD
Diet Low Sodium,Restrict fluids to 64 oz
Additional Diets low Potassium, renal diet
Activity With Walker,No strenuous activity
Driving Restrictions Not until seen by your Dr
Bathing Restrictions None
Blood Work CBC, BMP at dialysis
Other Services VN,PT
Instructions:
Stand-Alone Forms:
Changes to Home Medications: Yes
Discharge Medications:
DC Medications w/original date entered in [facility]
vitamin B complex 1 tab PO DAILY Supplement 10/08/17
aspirin 81 mg tablet,delayed release 81 mg PO QPM Blood clot prevention/tx 01/11/19
coenzyme Q10 100 mg capsule (Co Q-10) 100 mg PO BID Heart disease/condition 01/11/19
darbepoetin дмитрий in polysorbat 10 mcg/0.4 mL in polysorbate injection syringe (Aranesp) 0 dose IJ DAILYPRN PRN low hb 01/11/19
finasteride 5 mg tablet 5 mg PO DAILY Urinary issue 01/11/19
calcium acetate 667 mg tablet 1,334 mg PO MEALS High phosphorous 09/15/19
insulin aspart U-100 100 unit/mL (3 mL) subcutaneous pen (Novolog FlexPen U-100 Insulin aspart) 0 units SC TIDPRN PRN high blood sugar 09/15/19
rosuvastatin 10 mg tablet 10 mg PO QPM High cholesterol 09/15/19
furosemide 80 mg tablet 80 mg PO SUMOWEFR Fluid retention/Swelling 02/16/22
albuterol sulfate 90 mcg/actuation aerosol inhaler 2 puff inhalation R Q4HPRN PRN sob/wheezing 06/07/22
clopidogrel 75 mg tablet 75 mg PO DAILY Blood clot prevention/tx 06/07/22
umeclidinium 62.5 mcg-vilanterol 25 mcg/actuation powdr for inhalation (Anoro Ellipta) 1 inh inhalation R DAILY Lung/breathing issues 06/07/22
acetaminophen 500 mg tablet (Tylenol Extra Strength) 500 mg PO TID PRN mild pain 10/06/22
cholecalciferol (vitamin D3) 25 mcg (1,000 unit) capsule (Vitamin D3) 25 mcg PO BID Supplement 10/06/22
docusate sodium 100 mg capsule (Colace) 100 mg PO BID Constipation 10/06/22
loratadine 10 mg tablet (Allerclear) 10 mg PO DAILY Allergies 10/06/22
metoprolol succinate 25 mg tablet,extended release 24 hr 25 mg PO BID Heart Failure 10/06/22
pantoprazole 40 mg tablet,delayed release (Protonix) 40 mg PO DAILY Gastrointestinal Issue 10/06/22
B complex 11-folic acid 1 mg-C 100 mg-biotin 300 mcg-zinc 50 mg tablet (Dialyvite) 1 tab PO QPM Supplement 05/04/23
biotin 5,000 mcg chewable tablet 5,000 mcg PO BID Supplement 05/04/23
famotidine 40 mg tablet 40 mg PO BID Gastrointestinal Issue 05/04/23
insulin detemir U-100 100 unit/mL subcutaneous solution (Levemir U-100 Insulin) 10 - 12 unit SC QPM Diabetes 05/04/23
megestrol 625 mg/5 mL (125 mg/mL) oral suspension 625 mg PO SUMOWEFR Appitite 05/04/23
bisacodyl 5 mg tablet,delayed release 5 mg PO DAILYPRN PRN constipation #30 tabs 05/09/23
polyethylene glycol 3350 17 gram oral powder packet (HealthyLax) 17 g PO DAILY #30 ea 05/09/23
Home Medication Changes
added Dulcolax prn and daily Miralax
Pending Results: No
--- NOTE | 2023-05-10 09:04 | CM ---
DAKOTA spoke with Annette with [facility]. They are accepting the patient under their service.
Fax report to: [phone].
Fax # provided to community relations manager.
== END 2023-05-09 13:23 | disposition home health service (06) | DRG 871 ==
LOC: 2 NORTH 20:40
PROVIDERS: Internal Medicine; Specialist; ADMITTING PHYSICIAN Hospitalist; ATTENDING PHYSICIAN Internal Medicine; CONSULT PHYSICIAN Internal Medicine; EMERGENCY PHYSICIAN Student in an Organized Health Care Education/Training Program; FAMILY PHYSICIAN Internal Medicine; OTHER PHYSICIAN Internal Medicine
PROC: 5A1D70Z Performance of Urinary Filtration, Intermittent, Less than 6 Hours Per Day (ICD-10-PCS; 2023-05-06)
DX: A41.89 Other specified sepsis (principal); I50.23 Acute on chronic systolic (congestive) heart failure; N18.6 End stage renal disease; J96.21 Acute and chronic respiratory failure with hypoxia; K86.2 Cyst of pancreas; J44.0 Chronic obstructive pulmonary disease with (acute) lower respiratory infection; I13.2 Hypertensive heart and chronic kidney disease with heart failure and with stage 5 chronic kidney disease, or end stage renal disease; J84.9 Interstitial pulmonary disease, unspecified; E11.22 Type 2 diabetes mellitus with diabetic chronic kidney disease; I25.10 Atherosclerotic heart disease of native coronary artery without angina pectoris; D63.1 Anemia in chronic kidney disease; E87.6 Hypokalemia; K59.00 Constipation, unspecified; D53.9 Nutritional anemia, unspecified; D69.59 Other secondary thrombocytopenia; D46.9 Myelodysplastic syndrome, unspecified; J47.9 Bronchiectasis, uncomplicated; E78.00 Pure hypercholesterolemia, unspecified; N40.0 Benign prostatic hyperplasia without lower urinary tract symptoms; M19.90 Unspecified osteoarthritis, unspecified site; K21.9 Gastro-esophageal reflux disease without esophagitis; I71.40 Abdominal aortic aneurysm, without rupture, unspecified; R62.7 Adult failure to thrive; Z87.891 Personal history of nicotine dependence; I25.2 Old myocardial infarction; Z79.82 Long term (current) use of aspirin; Z79.4 Long term (current) use of insulin; Z79.02 Long term (current) use of antithrombotics/antiplatelets; Z99.2 Dependence on renal dialysis; Z88.8 Allergy status to other drugs, medicaments and biological substances; Z91.048 Other nonmedicinal substance allergy status; Z87.19 Personal history of other diseases of the digestive system; Z96.611 Presence of right artificial shoulder joint; Z95.1 Presence of aortocoronary bypass graft; Z90.411 Acquired partial absence of pancreas; Z91.119 Patient's noncompliance with dietary regimen due to unspecified reason; Z11.52 Encounter for screening for COVID-19
CPT/HCPCS: 71046; 71250; 80051; 80053; 81003; 81015; 82607; 82728; 82746; 82962; 83036; 83540; 83550; 83605; 83880; 84466; 84484; 85025; 85027; 86850; 86900; 86901; 87040; 87070; 87086; 87340; 87502; 87811; 93005; 94640; 96365; 96367; 99285; G0257; P9047; Q5106

== ENCOUNTER 2023-05-13 23:06 | Inpatient (IN) | payer MEDICARE, SELFPAY ==
[2023-05-13 21:06] VITALS: BMI 24.7
[2023-05-13 21:09] VITALS: BP 117/76
[2023-05-13 21:12] VITALS: BP 117/76
[2023-05-13 21:42] LABS: % Basophils 0.4 % (0-2); % Immature Granulocytes 0.5 % (0-0.5); % Lymphocytes 6.1 % (20.5-51.1); % Monocytes 8.6 % (1.7-9.3); % Neutrophils 77.4 % (42.2-75.2); Absolute Eosinophils 0.4 10^3/uL (0-0.7); Absolute Lymphocytes 0.3 10^3/uL (1.2-3.4); Absolute Monocytes 0.5 10^3/uL (0.1-0.6); Absolute Neutrophils 4.4 10^3/uL (1.4-6.5); Hematocrit 25.8 % (39.0-52.0); Hemoglobin 8.5 g/dL (13.0-18.0); Mean Corp Hgb Conc. 32.9 g/dL (33.0-37.0); Mean Platelet Volume 12.2 fL (7.4-10.4); Nucleated Red Blood Cells % 0 % (-); Platelet Count 92 10^3/uL (130-400); Red Blood Cell Count 2.66 10^6/uL (4.70-6.10); Red Cell Dist. Width 17.8 % (11.5-14.5); White Blood Cell Count 5.6 10^3/uL (4.8-10.8)
[2023-05-13 21:52] LABS: INR 1.18; PT 15.1 Sec (11.4-14.6)
[2023-05-13 21:53] LABS: APTT 34.4 Sec (23.4-35.0)
[2023-05-13 22:00] VITALS: BP 91/64
--- NOTE | 2023-05-13 22:05 | ED.GENMED ---
History of Present Illness
<ELI Painter - Last Filed: 05/13/23 23:24>
General
Chief Complaint: Chest Pain
Source: patient
Exam Limitations: none
Time Seen by Provider: 05/13/23 21:46
Travel History
Have you had any contact with someone who has COVID-19?: No
Do you have any symptoms of coronavirus? Fever > 100 degrees, chills, cough, shortness of breath, sore throat, loss of taste or smell, muscle aches, or headache?: No
History of Present Illness
History of Present Illness:
This is a 82 year old male that comes in by ambulance with c/o chest pain. States that his pain started after dinner. States that he was sitting watching TV. States that he did have dialysis today. States that he was SOB. Denies any fever, chills,
abd pain, nausea, vomiting, diarrhea, headache, dizziness. States that he does urinate once or twice daily.
Past History
<ELI Painter - Last Filed: 05/13/23 23:24>
Past History
ED Past Medical History: CAD, Cancer (Skin CA), CHF, COPD, GERD, HTN, Hypercholesterolemia, IDDM, ID, Renal failure (Wednesday, , and Wednesday. ) and Other (Chronic kidney disease, chronic liver disease. AAA, diverticulitis, Anemia, pancreatic
cyst, Left AV fistula, Myodysplastic syndrome)
ED Past Surgical History: Cardiac (CABG), Cholecystectomy, Orthopedic (Right shoulder replacement, ) and Other (Pancreatic cyst removal)
Social History
Tobacco: Former smoker
Alcohol: None
Drug: None
Personal:
Living: with family ([facility])
Employment: Retired
Family History
Family History: Diabetes and CAD
Review of Systems
<ELI Painter - Last Filed: 05/13/23 23:24>
Review of Systems
All Other Systems: ROS reviewed and negative except as documented in HPI and ROS
Constitutional: Reports no symptoms; Denies fever or chills
EENT: Reports no symptoms
Respiratory: Reports trouble breathing; Denies cough
Cardiac: Reports chest pain
ABD/GI: Reports no symptoms; Denies abdominal pain, nausea, vomiting or diarrhea
: Reports no symptoms
Musculoskeletal: Reports no symptoms
Skin: Reports no symptoms
Neurological: Reports no symptoms; Denies dizzy or headache
Psychiatric: Reports no symptoms
Phy Exam
<ELI Painter - Last Filed: 05/13/23 23:24>
General Physical Exam
General Presentation: mild distress
General age: appears stated age
General Skin: warm and dry
General Habitus: elderly
General Mental: alert
General Hydration: dry mucous membranes
ENT Exam
ENT Exam: TM's normal, pharynx normal and neck supple
Eye Exam
Eye Exam: EOMI
Cardiovascular Exam
Cardiovascular Exam: tachycardia
Pulmonary Exam
Pulmonary Exam: no respiratory distress, chest non tender, no rhonchi, no wheezing, no cough and other (rales 1/2 bilaterally)
Gastrointestinal Exam
Gastrointestinal Exam: normal bowel sounds, non tender, soft, no organomegaly, no pulsatile mass and non distended
Musculoskeletal Exam
Musculoskeletal Exam: full ROM and edema (Pitting edema of the lower legs)
Skin Exam
Skin Exam: normal color, warm/dry, no rash and no petechia
Psychiatric Exam
Psychiatric Exam: normal mood/affect
Scores
<ELI Painter - Last Filed: 05/13/23 23:24>
Heart Score for Chest Pain Patients
STEMI patient?: No
History: Slightly or Non-Suspicious
ECG: Normal
Age: >/= 65 years
Risk Factors: >/= 3 Risk Factors or History of CAD
Troponin: </= Normal Limit
Heart Score for Chest Pain Patients: 4
Heart Score Risk: 20.3% MACE over next 6 weeks
<Jarred Hanson MD - Last Filed: 05/14/23 11:23>
Heart Score for Chest Pain Patients
History: Moderately Suspicious
Heart Score for Chest Pain Patients: 5
Heart Score Risk: 20.3% MACE over next 6 weeks
Course
<ELI Painter - Last Filed: 05/13/23 23:24>
Orders/Labs/Results
Orders:
Orders
05/13/23 Dinner
Cholesterol Lowering
At Your Request: Full Participation
Cholesterol Lowering: Potassium, 2 gram
05/13/23 21:10
Electrocardiogram (*1) Urgent
Reason for Study: Chest Pain
EKG- Treatment ONCE
05/13/23 21:33
Complete Blood Count/With Diff Urgent
Comprehensive Metabolic Panel Urgent
PTT Urgent
Prothrombin Time Urgent
Troponin I Urgent
05/13/23 22:03
Adenosine [Adenocard] 6 mg IV NOW STA
CR Chest Portable - 1 View Urgent
Comment:
Reason For Exam: Chest pain
Reason Study Needs to be Portable: Patient Unstable
05/13/23 22:08
Adenosine [Adenocard] 6 mg .ROUTE .STK-MED ONE
05/13/23 22:11
Electrocardiogram (*1) Urgent
Reason for Study: Chest Pain
EKG- Treatment ONCE
05/13/23 22:24
Consult Cardiology [CARDIOLOGY CONSULT] Urgent
Consulting Provider: Nixon Go
Was physician already notified: Yes
05/13/23 22:42
Admit/Transfer Patient As Directed
Co-Sign Provider:
Level of Care: Inpatient admission
Assign to:: Telemetry
Physician / Group: keven
Diagnosis: SVT
Reason for Telemetry: Arrhythmia
Date to Stop Telemetry: 05/16/23
Time to Stop Telemetry: 11:00
Reason for Hospitalization: SVT
Expected length of stay greater than two midnights?: Yes
ELOS- Estimated Length of Stay in days: 2
I certify the patient meets the requirements for IP care: Yes
Code Status As Directed
Resuscitation Status: Full Code
05/13/23 22:50
Dextrose 50%-Water [Dextrose 50% Syringe] 12.5 grams IV [id number] PRN
Glucagon [GlucaGen] 1 mg IM PRN PRN
Bedside Glucose Monitoring As Directed
Frequency: AC&HS
Comment: Change to q6h if pt on TPN, tube feeding or not eating
05/13/23 23:00
Flush (0.9% Sodium Chloride) [Flush (Nss)] See Dose Instructions IV PER PROTOCOL
05/14/23 00:16
Acetaminophen [Tylenol] 500 mg PO TID PRN
Albuterol [ProAIR HFA INHALER] 2 puff INH R Q4HPRN PRN
05/14/23 00:16
Consult Notification Routine
Specialty to Notify: Nephrology
Date consulting provider notified: 05/14/23
Time consulting provider notified: 08:49
Notified:: Provider
NEPHROLOGY CONSULT Routine
Consulting Provider: Kannan De Guzman V.
Was physician already notified: No
Reason for consult: esrd dialysis for wednesday
Activity As Directed
Activity Level: As Tolerated
Vital Signs As Directed
Frequency: Per unit guidelines
DX Deep Vein Thrombosis Video Routine
05/14/23 00:42
TSH Routine
Troponin I Q6H
05/14/23 05:52
Complete Blood Count/With Diff IN AM
Comprehensive Metabolic Panel IN AM
Troponin I Q6H
05/14/23 Breakfast
NPO
Allow oral meds: Yes
Allow clear liquids: Sips of Clears
05/14/23 07:30
Insulin Aspart Corrective Low [Novolog Flexpen-Low Resistance] See Protocol SC AC
05/14/23 08:00
Calcium Acetate [Phoslo] 1,334 mg PO MEALS
Cholecalciferol (Vitamin D3) [VITAMIN D3 (cholecalciferol)] 25 mcg PO BID
Clopidogrel Bisulfate [Plavix] 75 mg PO DAILY
Famotidine [Pepcid] 40 mg PO BID
Finasteride [Proscar] 5 mg PO DAILY
Furosemide [Lasix] 80 mg PO SuMoWeFr@0800
Heparin 5,000 units SC Q12
Loratadine [Claritin] 10 mg PO DAILY
Megestrol [Megace Oral Suspension] 625 mg PO SuMoWeFr@0800
Metoprolol Xl [Toprol Xl] 25 mg PO BID
Pantoprazole [Protonix] 40 mg PO DAILY
Tiotropium [place] 2.5 Mcg [Spiriva Respimat 2.5 Mcg] 2 puff INH R DAILY
Vitamin B Complex with C [B COMPLEX w/VITAMIN C] 1 caplet PO DAILY
biotin 5,000 mcg PO BID
coenzyme Q10 [Co Q-10] 100 mg PO BID
05/14/23 12:16
Troponin I Q6H
05/14/23 18:00
Aspirin Low Dose EC [Aspir Low (Enteric Coated)] 81 mg PO QPM
Renal Cap [Nephrocap] 1 capsule PO QPM
Rosuvastatin Calcium [Crestor] 10 mg PO QPM
05/16/23 11:00
DC Protocol for Telemetry ONCE
Abnormal Lab Results
05/13/23
21:33
RBC 2.66 L 10^6/uL
(4.70-6.10)
Hgb 8.5 L g/dL
(13.0-18.0)
Hct 25.8 L %
(39.0-52.0)
MCV 97.0 H fL
(80.0-94.0)
MCH 32.0 H pg
(27.0-31.0)
MCHC 32.9 L g/dL
(33.0-37.0)
RDW 17.8 H %
(11.5-14.5)
Plt Count 92 L 10^3/uL
(130-400)
MPV 12.2 H fL
(7.4-10.4)
Absolute Lymphs (auto) 0.3 L 10^3/uL
(1.2-3.4)
Neutrophils % 77.4 H %
(42.2-75.2)
Lymphocytes % 6.1 L %
(20.5-51.1)
Eosinophils % 7.0 H %
(0-6)
PT 15.1 H Sec
(11.4-14.6)
Sodium 133 L mmol/L
(135-145)
BUN 30 H mg/dl
(9-20)
Creatinine 3.1 H mg/dL
(0.7-1.3)
Glucose 296 H mg/dl
(70-99)
05/13/23 21:33
05/13/23 21:33
RBC. low. H/h lo. Anemia, Thrombocytopenia, PT 15.1 with INR 1.18, PTT 34.4, Sodium slightly low. Chronic renal failure, Glucose nonfasting. Troponin 0.018
Vital Signs
Initial and Last Documented VS:
Initial Vital Signs
Temp Pulse Resp BP Pulse Ox
98.1 F 152 16 117/76 97
05/13/23 21:09 05/13/23 21:09 05/13/23 21:09 05/13/23 21:09 05/13/23 21:09
Last Documented Vital Signs
Temp Pulse Resp BP Pulse Ox
98.1 F 84 16 114/66 98
05/14/23 11:04 05/14/23 11:04 05/14/23 11:04 05/14/23 11:04 05/14/23 11:04
<Jarred Hanson MD - Last Filed: 05/14/23 11:23>
Orders/Labs/Results
Orders:
Orders
05/13/23 Dinner
Cholesterol Lowering
At Your Request: Full Participation
Cholesterol Lowering: Potassium, 2 gram
05/13/23 21:10
Electrocardiogram (*1) Urgent
Reason for Study: Chest Pain
EKG- Treatment ONCE
05/13/23 21:33
Complete Blood Count/With Diff Urgent
Comprehensive Metabolic Panel Urgent
PTT Urgent
Prothrombin Time Urgent
Troponin I Urgent
05/13/23 22:03
Adenosine [Adenocard] 6 mg IV NOW STA
CR Chest Portable - 1 View Urgent
Comment:
Reason For Exam: Chest pain
Reason Study Needs to be Portable: Patient Unstable
05/13/23 22:08
Adenosine [Adenocard] 6 mg .ROUTE .STK-MED ONE
05/13/23 22:11
Electrocardiogram (*1) Urgent
Reason for Study: Chest Pain
EKG- Treatment ONCE
05/13/23 22:24
Consult Cardiology [CARDIOLOGY CONSULT] Urgent
Consulting Provider: Nixon Go
Was physician already notified: Yes
05/13/23 22:42
Admit/Transfer Patient As Directed
Co-Sign Provider:
Level of Care: Inpatient admission
Assign to:: Telemetry
Physician / Group: keven
Diagnosis: SVT
Reason for Telemetry: Arrhythmia
Date to Stop Telemetry: 05/16/23
Time to Stop Telemetry: 11:00
Reason for Hospitalization: SVT
Expected length of stay greater than two midnights?: Yes
ELOS- Estimated Length of Stay in days: 2
I certify the patient meets the requirements for IP care: Yes
Code Status As Directed
Resuscitation Status: Full Code
05/13/23 22:50
Dextrose 50%-Water [Dextrose 50% Syringe] 12.5 grams IV [id number] PRN
Glucagon [GlucaGen] 1 mg IM PRN PRN
Bedside Glucose Monitoring As Directed
Frequency: AC&HS
Comment: Change to q6h if pt on TPN, tube feeding or not eating
05/13/23 23:00
Flush (0.9% Sodium Chloride) [Flush (Nss)] See Dose Instructions IV PER PROTOCOL
05/14/23 00:16
Acetaminophen [Tylenol] 500 mg PO TID PRN
Albuterol [ProAIR HFA INHALER] 2 puff INH R Q4HPRN PRN
05/14/23 00:16
Consult Notification Routine
Specialty to Notify: Nephrology
Date consulting provider notified: 05/14/23
Time consulting provider notified: 08:49
Notified:: Provider
NEPHROLOGY CONSULT Routine
Consulting Provider: Kannan De Guzman V.
Was physician already notified: No
Reason for consult: esrd dialysis for wednesday
Activity As Directed
Activity Level: As Tolerated
Vital Signs As Directed
Frequency: Per unit guidelines
DX Deep Vein Thrombosis Video Routine
05/14/23 00:42
TSH Routine
Troponin I Q6H
05/14/23 05:52
Complete Blood Count/With Diff IN AM
Comprehensive Metabolic Panel IN AM
Troponin I Q6H
05/14/23 Breakfast
NPO
Allow oral meds: Yes
Allow clear liquids: Sips of Clears
05/14/23 07:30
Insulin Aspart Corrective Low [Novolog Flexpen-Low Resistance] See Protocol SC AC
05/14/23 08:00
Calcium Acetate [Phoslo] 1,334 mg PO MEALS
Cholecalciferol (Vitamin D3) [VITAMIN D3 (cholecalciferol)] 25 mcg PO BID
Clopidogrel Bisulfate [Plavix] 75 mg PO DAILY
Famotidine [Pepcid] 40 mg PO BID
Finasteride [Proscar] 5 mg PO DAILY
Furosemide [Lasix] 80 mg PO SuMoWeFr@0800
Heparin 5,000 units SC Q12
Loratadine [Claritin] 10 mg PO DAILY
Megestrol [Megace Oral Suspension] 625 mg PO SuMoWeFr@0800
Metoprolol Xl [Toprol Xl] 25 mg PO BID
Pantoprazole [Protonix] 40 mg PO DAILY
Tiotropium [place] 2.5 Mcg [Spiriva Respimat 2.5 Mcg] 2 puff INH R DAILY
Vitamin B Complex with C [B COMPLEX w/VITAMIN C] 1 caplet PO DAILY
biotin 5,000 mcg PO BID
coenzyme Q10 [Co Q-10] 100 mg PO BID
05/14/23 12:16
Troponin I Q6H
05/14/23 18:00
Aspirin Low Dose EC [Aspir Low (Enteric Coated)] 81 mg PO QPM
Renal Cap [Nephrocap] 1 capsule PO QPM
Rosuvastatin Calcium [Crestor] 10 mg PO QPM
05/16/23 11:00
DC Protocol for Telemetry ONCE
Abnormal Lab Results
05/13/23
21:33
RBC 2.66 L 10^6/uL
(4.70-6.10)
Hgb 8.5 L g/dL
(13.0-18.0)
Hct 25.8 L %
(39.0-52.0)
MCV 97.0 H fL
(80.0-94.0)
MCH 32.0 H pg
(27.0-31.0)
MCHC 32.9 L g/dL
(33.0-37.0)
RDW 17.8 H %
(11.5-14.5)
Plt Count 92 L 10^3/uL
(130-400)
MPV 12.2 H fL
(7.4-10.4)
Absolute Lymphs (auto) 0.3 L 10^3/uL
(1.2-3.4)
Neutrophils % 77.4 H %
(42.2-75.2)
Lymphocytes % 6.1 L %
(20.5-51.1)
Eosinophils % 7.0 H %
(0-6)
PT 15.1 H Sec
(11.4-14.6)
Sodium 133 L mmol/L
(135-145)
BUN 30 H mg/dl
(9-20)
Creatinine 3.1 H mg/dL
(0.7-1.3)
Glucose 296 H mg/dl
(70-99)
05/13/23 21:33
05/13/23 21:33
Vital Signs
Initial and Last Documented VS:
Initial Vital Signs
Temp Pulse Resp BP Pulse Ox
98.1 F 152 16 117/76 97
05/13/23 21:09 05/13/23 21:09 05/13/23 21:09 05/13/23 21:09 05/13/23 21:09
Last Documented Vital Signs
Temp Pulse Resp BP Pulse Ox
98.1 F 84 16 114/66 98
05/14/23 11:04 05/14/23 11:04 05/14/23 11:04 05/14/23 11:04 05/14/23 11:04
<ELI Painter - Last Filed: 05/13/23 23:24>
MDM/Problems Addressed
Differential Diagnosis Includes:
Sinus tachycardia, Coronary syndrome
MDM/Problems Addressed:
This is a 82 year old male that comes in with c/o chest pain. States that he started after dinner with pain.
Patient had dialysis today and was found to be in a sinus tach at 150. Patient was given Adenosine 6mg IV and he converted into a sinus Rhythm. Will admit patient. Marine Steam Fitter and Hospitalist notified.
Repeat ECG: rate 98, NSR, Left axis, Incomplete left BBB, ST depression I, aVL, V4, V5, V6, Checked by Dr. Hanson
Chronic conditions affecting care: CAD
Acute Exacerbation and/or Progression of Chronic Illness: CAD
<ELI Painter - Last Filed: 05/13/23 23:24>
*Pulse Oximetry
Patient hypoxic: no
*EKG
Interpreted by ED Provider?: Yes
Heart Rate: 152
Rate: tachycardiac
Rhythm: sinus tachycardia
[place]: left axis deviation
Interval: normal interval
QRS Pattern: left bundle branch block
Ischemia: non-specific ST changes
*Marble Cutter Operator Interpretation
Rate: tachycardiac
Heart Rate: 150
Rhythm: sinus tachycardia
*Critical Care Note
Total Time (30-74mins, 75-104mins- exclusive of procedures): Not Applicable
ED Attending Note
<ELI Painter - Last Filed: 05/13/23 23:24>
-
Portions of this chart may have been created with voice recognition software.� Occasional wrong word or��sound alike� substitutions may have occurred due to the inherent limitations of voice recognition software.
<Jarred Hanson MD - Last Filed: 05/14/23 11:23>
ED Attending Note
Patient seen and examined by attending physician: Yes
ED Attending Note:
Patient with history of end-stage renal disease on hemodialysis (Wednesday, , and Wednesday) and coronary artery disease, status post CABG, presents to ED secondary to sudden onset of chest pain while having dinner tonight. Chest pain
described as pressure, nonradiating, without any alleviating or exacerbating factors. Denies shortness of breath. Denies nausea. Denies diaphoresis. Denies dizziness. Of note, patient has had intermittent chest pain recently, and has been
evaluated by his primary deputy director of public works, Dr. Collins at [facility], including stress test. He was told by his deputy director of public works that he may need cardiac catheterization. Upon arrival, patient is found to be tachycardic with ongoing chest pain.
Physical Exam
General: mild distress, not acutely ill. afebrile. weak appearing.
Head: nc/at. eomi
Neck: supple. no meningeal signs.
Heart: tachycardic, no murmur. equal radial pulses.
Lungs: no acute respiratory distress. clear bilaterally
Abdomen: normal bowel sounds. not tender.
Neuro: alert and oriented. no focal neurological deficits
Skin: no rash
Psychiatric: well kept. interactive and cooperative
Extremities: no edema. no calf tenderness.
Initial EKG reviewed, significant for narrow complex tachycardia. Unfortunately heart rate remains elevated with labile blood pressure, mildly hypotensive. Decision made to administer adenosine.
After adenosine administration, heart rate slowed down, with resolution of chest pain. Repeat EKG reveals sinus rhythm, rate controlled.
Initial troponin noted. However, pt with known CAD, does have high risk for potential ACS.
Discussed with Dr. Go, cardiology. Agrees with plan to admit the patient to the hospital service. Recommends additional beta-omero, i.e. Lopressor, if blood pressure remains stable.
Critical care statement: A total of 40 minutes of critical care time was provided for this patient. This includes management of unstable vital signs, evaluation of the patient at bedside, reviewing the patient's pertinent medical records, discussion
with consultants, review of old EKGs and review of pertinent medical records. This time with separate from time utilized to perform the aforementioned documented procedures
Discharge Plan
Departure
Patient Disposition: Admit
Date of Disposition: 05/13/23
Time of Disposition: 22:35
Admit to: Telemetry
Presentation/result/management discussed w/ accepting MD/DO: Hospitalist
Patient with high blood pressure during this ER visit?: No
Condition: Good
Covid-19: Not Applicable
Discharge Problem:
Chest pain, Paroxysmal sinus tachycardia
Interventions
Interventions:
*Risk Screen - Suicide Last Done: 05/13/23 21:37
*Neglect/Abuse Screening Last Done: 05/13/23 21:37
ED- Fall Risk Assessment Last Done: 05/13/23 21:37
*ED COVID-19 Vaccine History Last Done: 05/13/23 21:37
*Nursing Disposition Last Done: 05/14/23 00:13
ED- Cardiac Assessment Last Done: 05/13/23 21:37
Discharge Date and Time
Discharge Date/Time: 05/14/23 00:13
[2023-05-13 22:08] LABS: ALT (SGPT) 25 U/L (0-50); AST (SGOT) 24 U/L (17-59); Albumin 4.1 g/dl (3.5-5.0); Alkaline Phosphatase 96 U/L (38-126); Blood Urea Nitrogen 30 mg/dl (9-20); Calcium 9.5 mg/dl (8.4-10.2); Carbon Dioxide 26 mmol/L (22-30); Chloride 99 mmol/L (98-107); Estimated Creatinine Clearance 17 ml/min; Glucose 296 mg/dl (70-99); Potassium 3.8 mmol/L (3.5-5.1); Sodium 133 mmol/L (135-145); Total Protein 6.6 g/dl (6.3-8.2); eGFR 19.45
[2023-05-13 22:09] LABS: Troponin I 0.018 ng/ml
[2023-05-13 22:10] VITALS: BP 114/70
[2023-05-13] MEDS: ADENOCARD 6 MG IV (22:16)
--- NOTE | 2023-05-13 22:49 | HPS.HSE ---
Family Physician
-
Family Physician: Vic Chappell
Chief Complaint
-
chest pain
History of Present Illness
82-year-old male past medical history of ESRD on hemodialysis, CAD status post CABG, chronic HFrEF, COPD, diabetes, MDS, anemia of CKD, diverticulitis presenting with chest pain which started after dinner while he was watching TV. Denies shortness
of breath, sweating, fevers, chills, abdominal pain, nausea or vomiting, diarrhea, headache, dizziness.
His die cast die maker is at [facility] Dr. Collins who he saw a month ago after having a stress test. He was considering cardiac catheterization.
Patient is a former smoker and alcohol user.
He did have dialysis today. He does urinate once or twice daily.
Medical History
Past Medical History
Past Medical History: Reports Other (ESRD on hemodialysis, CAD status post CABG, chronic HFrEF, COPD, diabetes, MDS, anemia of CKD, diverticulitis)
Past Surgical History: Reports Other (Cardiac (CABG), Cholecystectomy, Orthopedic (Right shoulder replacement, ) and Other (Pancreatic cyst removal))
Social History
Tobacco: Former Smoker
Alcohol: Former
Drug: None
Family History
Family History: CAD (In mother and father )
Allergies / Home Medications
Allergies reflects when Allergies were last updated in [facility].
Home Medications with original date entered in [facility]
Allergy/Medication List:
Allergies
Allergy/AdvReac Type Severity Reaction Status Date / Time
adhesive Allergy Unknown Verified 05/04/23 16:35
baclofen Allergy confusion, Verified 05/04/23 16:35
extrapyramidal
symptoms
metoclopramide [From Reglan] Allergy Unknown Verified 05/04/23 16:35
Home Medications
vitamin B complex 1 tab PO DAILY Supplement 10/08/17
aspirin 81 mg tablet,delayed release 81 mg PO QPM Blood clot prevention/tx 01/11/19
coenzyme Q10 100 mg capsule (Co Q-10) 100 mg PO BID Heart disease/condition 01/11/19
darbepoetin дмитрий in polysorbat 10 mcg/0.4 mL in polysorbate injection syringe (Aranesp) 0 dose IJ DAILYPRN PRN low hb 01/11/19
finasteride 5 mg tablet 5 mg PO DAILY Urinary issue 01/11/19
calcium acetate 667 mg tablet 1,334 mg PO MEALS High phosphorous 09/15/19
insulin aspart U-100 100 unit/mL (3 mL) subcutaneous pen (Novolog FlexPen U-100 Insulin aspart) 0 units SC TIDPRN PRN high blood sugar 09/15/19
rosuvastatin 10 mg tablet 10 mg PO QPM High cholesterol 09/15/19
furosemide 80 mg tablet 80 mg PO SUMOWEFR Fluid retention/Swelling 02/16/22
albuterol sulfate 90 mcg/actuation aerosol inhaler 2 puff inhalation R Q4HPRN PRN sob/wheezing 06/07/22
clopidogrel 75 mg tablet 75 mg PO DAILY Blood clot prevention/tx 06/07/22
umeclidinium 62.5 mcg-vilanterol 25 mcg/actuation powdr for inhalation (Anoro Ellipta) 1 inh inhalation R DAILY Lung/breathing issues 06/07/22
acetaminophen 500 mg tablet (Tylenol Extra Strength) 500 mg PO TID PRN mild pain 10/06/22
cholecalciferol (vitamin D3) 25 mcg (1,000 unit) capsule (Vitamin D3) 25 mcg PO BID Supplement 10/06/22
loratadine 10 mg tablet (Allerclear) 10 mg PO DAILY Allergies 10/06/22
metoprolol succinate 25 mg tablet,extended release 24 hr 25 mg PO BID Heart Failure 10/06/22
pantoprazole 40 mg tablet,delayed release (Protonix) 40 mg PO DAILY Gastrointestinal Issue 10/06/22
B complex 11-folic acid 1 mg-C 100 mg-biotin 300 mcg-zinc 50 mg tablet (Dialyvite) 1 tab PO QPM Supplement 05/04/23
biotin 5,000 mcg chewable tablet 5,000 mcg PO BID Supplement 05/04/23
famotidine 40 mg tablet 40 mg PO BID Gastrointestinal Issue 05/04/23
insulin detemir U-100 100 unit/mL subcutaneous solution (Levemir U-100 Insulin) 10 - 12 unit SC QPM Diabetes 05/04/23
megestrol 625 mg/5 mL (125 mg/mL) oral suspension 625 mg PO SUMOWEFR Appitite 05/04/23
Review of Systems
-
History Source: Patient
A 12 point ROS was completed and negative except as noted: Yes
Constitutional: Reports No Symptoms
EENT: Reports No Symptoms
Respiratory: Reports No Symptoms
Cardiac: Reports See HPI
Abdomen/GI: Reports No Symptoms
: Reports No Symptoms
Musculoskeletal: Reports No Symptoms
Skin: Reports No Symptoms
Neurological: Reports No Symptoms
Endocrine: Reports No Symptoms
Hematologic/Lymphatic: Reports No Symptoms
Psych: Reports No Symptoms
Physical Exam
Vital Signs
Vital Signs
Temp Pulse Resp BP Pulse Ox
98.1 F 97 21 114/70 94
05/13/23 21:09 05/13/23 22:30 05/13/23 22:30 05/13/23 22:10 05/13/23 22:30
Physical Exam
General: Well Developed, Well Nourished and No Apparent Distress
HEENT: NormoCephalic, Moist mucous membranes and Atraumatic
Respiratory: Clear
Cardiac: S1/S2 and Regular Rhythm; No Murmur or Rub
GI: Soft, Non Tender, Non Distended and Normal Bowel Sounds; No Organomegaly
Rectal: Deferred by Provider
Musculoskeletal: No Clubbing, No Cyanosis and No Edema
Skin: No Rash
Neuro: Nonfocal/grossly intact
Laboratory Results
-
05/13/23 21:33
05/13/23 21:33
Laboratory Results
PT 15.1 Sec (11.4-14.6) H 05/13/23 21:33
INR 1.18 05/13/23 21:
APTT 34.4 Sec (23.4-35.0) 05/13/23:
Total Bilirubin 1.0 mg/dl (0.2-1.3) 05/13/23 21:
AST 24 U/L (17-59) 05/13/23:
ALT 25 U/L (0-50) 05/13/23 21:
Alkaline Phosphatase 96 U/L (38-126) 05/13/23 21:
Troponin I 0.018 ng/ml 05/13/23:
Data Reviewed
-
Lab Data: Labs Reviewed by me
Old Records: Reviewed
Impression/Plan
-
IMPRESSION:
PLAN:
# Likely SVT
# Likely demand ischemia from tachycardia
-Original EKG showed narrow complex tachycardia with heart rate of 152, no P waves present
-Patient given adenosine with conversion to normal sinus
-Second EKG showed normal sinus rhythm with incomplete left bundle branch block with ST depressions in leads V5, V6
-Troponin 0.018, continue to trend
-Patient developed tachycardia again, can use IV Lopressor
-Continue metoprolol 25 twice daily
-Check TSH
-Cardiology consulted
-N.p.o. past midnight in case catheterization necessary
Coronary artery disease status post CABG
-Continue aspirin, Plavix
-Continue statin
Chronic HFrEF
-Echo from March showed moderate to large area of severe hypokinesis involving inferior septum, inferior wall and proximal portion of the lateral wall of the left ventricle
- EF of 35-40 percent
-Continue Lasix
ESRD on hemodialysis Wednesday, , Wednesday
-Nephrology consulted for dialysis on Wednesday
COPD
-Continue inhalers
Type 2 diabetes
-Continue Levemir 10 units
-Insulin sliding scale
Myelodysplastic syndrome
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
BPH
-Continue finasteride
Chronic urinary burning
Constipation
GERD
-Continue famotidine, Protonix
Poor appetite/failure to thrive
-Continue megestrol
Full code
DVT prophylaxis�heparin
Renal diet
[2023-05-13 23:00] VITALS: BP 112/61
[2023-05-13] MEDS: LOPRESSOR 25 MG PO (23:44)
[2023-05-14] VITALS (7 sets, daily range): BP systolic 109–132; BP diastolic 59–68; BMI 23.9; BMI 23.8
[2023-05-14 00:45] LABS: Glucose - Point of Care 308 mg/dl (70-99)
[2023-05-14] MEDS: LEVEMIR 0.100000000000000006 UNITS SC ×2 (01:10→18:16)
[2023-05-14] MEDS: TYLENOL 500 MG PO (01:10)
--- NOTE | 2023-05-14 01:27 | PTCARENOTE ---
Pt's trop 3.65 from 0.018. No c/o CP from pt. ELI Manning notified about trop and that last EKG showed acute OK/STEMI. ELI instructed this RN to continue to monitor. No new orders provided. Plan of care ongoing.
[2023-05-14] MEDS: NOVOLOG FLEXPEN-LOW RESISTANCE 4 UNITS SC (01:43)
[2023-05-14 04:49] LABS: TSH 1.17 uIU/ml (0.47-4.68)
[2023-05-14 05:49] LABS: Glucose - Point of Care 151 mg/dl (70-99)
[2023-05-14] MEDS: NOVOLOG FLEXPEN-LOW RESISTANCE 1 UNITS SC (05:55)
[2023-05-14 06:24] LABS: % Basophils 0.4 % (0-2); % Eosinophils 5.7 % (0-6); % Immature Granulocytes 0.5 % (0-0.5); % Monocytes 10.7 % (1.7-9.3); % Neutrophils 74.7 % (42.2-75.2); Absolute Eosinophils 0.3 10^3/uL (0-0.7); Absolute Lymphocytes 0.5 10^3/uL (1.2-3.4); Absolute Monocytes 0.6 10^3/uL (0.1-0.6); Absolute Neutrophils 4.2 10^3/uL (1.4-6.5); Hematocrit 24.1 % (39.0-52.0); Hemoglobin 7.7 g/dL (13.0-18.0); Mean Corpuscular Hgb 31.3 pg (27.0-31.0); Mean Platelet Volume 12.3 fL (7.4-10.4); Nucleated Red Blood Cells % 0 % (-); Platelet Count 84 10^3/uL (130-400); Red Blood Cell Count 2.46 10^6/uL (4.70-6.10); Red Cell Dist. Width 17.7 % (11.5-14.5); White Blood Cell Count 5.6 10^3/uL (4.8-10.8)
[2023-05-14 07:13] LABS: ALT (SGPT) 29 U/L (0-50); AST (SGOT) 123 U/L (17-59); Albumin 3.5 g/dl (3.5-5.0); Alkaline Phosphatase 71 U/L (38-126); Blood Urea Nitrogen 37 mg/dl (9-20); Calcium 9.5 mg/dl (8.4-10.2); Carbon Dioxide 27 mmol/L (22-30); Chloride 102 mmol/L (98-107); Estimated Creatinine Clearance 15 ml/min; Glucose 149 mg/dl (70-99); Potassium 3.9 mmol/L (3.5-5.1); Sodium 136 mmol/L (135-145); Total Bilirubin 0.9 mg/dl (0.2-1.3); Total Protein 5.9 g/dl (6.3-8.2); eGFR 15.73
[2023-05-14] MEDS: SPIRIVA RESPIMAT 2.5 MCG 2 PUFF INH (07:24)
[2023-05-14] MEDS: STRIVERDI RESPIMAT 2 PUFF INH (07:24)
--- NOTE | 2023-05-14 08:06 | CON.CAR ---
Addendum entered and electronically signed by Jacob Mayer MD 05/14/23 09:02:
82 yo male with PMH of CAD, CABG 2019; also ICM EF 35-40%, ESRD on HD, MDS with chronic anemia and thrombocytopenia, called 911 yesterday for chest pain. Upon arrival to ED, was in SVT, which broke with adenosine. Initial troponin was 0.018, but is
now 16. EKG with more pronounced lateral ST depression. Of note, he recently had abnormal nuclear stress test as outpatient with inferolateral ischemia (done in setting of decline in LVEF). He ultimately declined cath because he was not having
chest pain. Now, he is agreeable to cath.
#CAD,NSTEMI
-he is on chronic DAPT; give ASA 324mg, continue Plavix, and start heparin drip
-follow up echo for LVEF
-cath today
# paroxysmal SVT
-cont Toprol XL
Original Note:
Consultation
Consultation Request
Date/Time Consultation Requested: 05/13/232223
Date/Time Consultation Performed: 05/14/23 4545
Requesting Provider: Dr. Yost
Performing Provider: Aliza BENITEZ for Dr. Mayer
Reason for Consultation: NSTEMI
Medical History
-
Chief Complaint: chest discomfort
History of Present Illness:
82 y/o male with PTCA , CABG x 2 2018, ICM with most recent EF 35-40%, anemia, ESRD on HD, type II DM, COPD, and MDS who was recently here with PNA. We saw him for question of CHF exacerbation, but he seemed compensated with HD. Of note, he
has had SCOTT, which prompted echo, which showed worsening EF, which prompted stress test, which showed inferior scar/ischemia per OP notes. They discussed possibility of cath at that time, but he discussed further with his PCP at [facility] and
they agreed to continue medical management. He is here since yesterday afternoon, he reports he had a right-sided chest ache throughout the day. It worsened and he felt very tired and came to the ER, where he was seen to have SVT, which resolved
with adenosine. He has been chest pain free since then. He is in no distress at the time of my assessment and denies any SOB. Trop is up to 16. EKG stable overall SR with IC LBBB.
Past Medical History
Past Medical History: CAD, Cancer (MDS), CHF, COPD, NIDDM and Renal Failure
Social History
Tobacco: Former Smoker
Personal:
Living: Other ([facility])
Family History
Family History: Reviewed & Not Pertinent
Allergies / Home Medications
Allergy/AdvReac Type Severity Reaction Status Date / Time
adhesive Allergy Unknown Verified 05/04/23 16:35
baclofen Allergy confusion, Verified 05/04/23 16:35
extrapyramidal
symptoms
metoclopramide [From Reglan] Allergy Unknown Verified 05/04/23 16:35
�Medication �Instructions �Recorded �Confirmed �Type
vitamin B complex 1 tab PO DAILY Supplement 10/08/17 05/13/23 History
aspirin 81 mg tablet,delayed 81 mg PO QPM Blood clot 01/11/19 05/13/23 History
release prevention/tx
coenzyme Q10 100 mg capsule (Co 100 mg PO BID Heart 01/11/19 05/13/23 History
Q-10) disease/condition
darbepoetin дмитрий in polysorbat 10 0 dose IJ DAILYPRN PRN low hb 01/11/19 05/13/23 History
mcg/0.4 mL in polysorbate
injection syringe (Aranesp)
finasteride 5 mg tablet 5 mg PO DAILY Urinary issue 01/11/19 05/13/23 History
calcium acetate 667 mg tablet 1,334 mg PO MEALS High phosphorous 09/15/19 05/13/23 History
insulin aspart U-100 100 unit/mL 0 units SC TIDPRN PRN high blood 09/15/19 05/13/23 History
(3 mL) subcutaneous pen (Novolog sugar
FlexPen U-100 Insulin aspart)
rosuvastatin 10 mg tablet 10 mg PO QPM High cholesterol 09/15/19 05/13/23 History
furosemide 80 mg tablet 80 mg PO SUMOWEFR Fluid 02/16/22 05/13/23 History
retention/Swelling
albuterol sulfate 90 mcg/actuation 2 puff inhalation R Q4HPRN PRN 06/07/22 05/13/23 History
aerosol inhaler sob/wheezing
clopidogrel 75 mg tablet 75 mg PO DAILY Blood clot 06/07/22 05/13/23 History
prevention/tx
umeclidinium 62.5 mcg-vilanterol 1 inh inhalation R DAILY 06/07/22 05/13/23 History
25 mcg/actuation powdr for Lung/breathing issues
inhalation (Anoro Ellipta)
acetaminophen 500 mg tablet 500 mg PO TID PRN mild pain 10/06/22 05/13/23 History
(Tylenol Extra Strength)
cholecalciferol (vitamin D3) 25 25 mcg PO BID Supplement 10/06/22 05/13/23 History
mcg (1,000 unit) capsule (Vitamin
D3)
loratadine 10 mg tablet 10 mg PO DAILY Allergies 10/06/22 05/13/23 History
(Allerclear)
metoprolol succinate 25 mg 25 mg PO BID Heart Failure 10/06/22 05/13/23 History
tablet,extended release 24 hr
pantoprazole 40 mg tablet,delayed 40 mg PO DAILY Gastrointestinal 10/06/22 05/13/23 History
release (Protonix) Issue
B complex 11-folic acid 1 mg-C 100 1 tab PO QPM Supplement 05/04/23 05/13/23 History
mg-biotin 300 mcg-zinc 50 mg
tablet (Dialyvite)
biotin 5,000 mcg chewable tablet 5,000 mcg PO BID Supplement 05/04/23 05/13/23 History
famotidine 40 mg tablet 40 mg PO BID Gastrointestinal Issue 05/04/23 05/13/23 History
insulin detemir U-100 100 unit/mL 10 - 12 unit SC QPM Diabetes 05/04/23 05/13/23 History
subcutaneous solution (Levemir
U-100 Insulin)
megestrol 625 mg/5 mL (125 mg/mL) 625 mg PO SUMOWEFR Appitite 05/04/23 05/13/23 History
oral suspension
melatonin 5 mg tablet 5 mg PO HS PRN sleep 05/14/23 05/14/23 History
Review of Systems
-
History Source: Patient
All other systems: Negative unless noted
Constitutional: Fatigue
Cardiac: Chest Pain
Physical Exam
Vital Signs
Temp Pulse Resp BP Pulse Ox
97.9 F 84 15 121/68 98
05/14/23 07:13 05/14/23 07:30 05/14/23 07:30 05/14/23 07:13 05/14/23 07:30
Lab Results
05/14/23 05:52
05/14/23 05:52
Troponin I 16.600 ng/ml H* D 05/14/23 05:52
Physical Exam
General: Well Developed, Well Nourished and No Apparent Distress
HEENT: Normocephalic and Anicteric
Respiratory: Crackles (b/l bases) and Other (on O2 by NC, respiratory effort is normal)
Cardiac: Regular Rhythm
Musculoskeletal: No Edema
Skin: Warm and Dry
Neuro: AO x 3
Psych: Calm
Impression / Plan
-
NSTEMI: currently CP free
-full dose ASA now, start heparin drip-continue DAPT, statin, BB
-cardiac cath today
-trop up to 16- continue to trend
-repeat echo
-known CAD with details as below
-lipids, hgb A1 C
CAD with hx CABG 2019:
-stable without CP- EKG stable, trop normal
-recent abnormal stress test as noted, and patient opted for no cath, and continued med management after discussion with his primary doc. However, now with NSTEMI, he is agreeable.
-on DAPT and BB and statin
SVT:
-stable s/p adenosine
-continue metoprolol and follow telemetry
Chronic HFrEF:
-chronic, stable
-volume management by HD
ICM EF 35-40%:
-continue BB
-GDMT limited by BP (when on HD per OP notes) and renal function
-repeating echo with NSTEMI
ESRD on HD:
-per nephro
Anemia of chronic disease:
-seems stable, no clinical bleeding
-patient with MDS, ESRD
Data Reviewed
-
EKG: Tracing Personally Visualized and interpreted (SR with IC LBBB)
Radiology: Report Reviewed by me (CXR: there is groundglass parenchymal density in both lungs, less prominent than on the previous examination, the differential diagnosis for which includes pulmonary edema and interstitial pneumonia. )
Medical Tests (Nuc Med, Echo etc): Report Reviewed by me (Echo 03/31/23: Moderate-large area of severe hypokinesis/akinesis involving the inferoseptum, the inferior wall, and the proximal portion of the lateral wall of the LV. EF 35 to 40%. Grade 2
DD. Mild MR, moderate MAC, minimal to mild aortic stenosis, moderate tricuspid regurgitation. PAP 53 mmHg.)
Labs: Labs Reviewed by me
[2023-05-14] MEDS: PHOSLO PO ×2 (08:17→17:49)
[2023-05-14] MEDS: B COMPLEX w/VITAMIN C PO (08:17)
[2023-05-14] MEDS: TOPROL XL 25 MG PO ×2 (08:18→20:00)
[2023-05-14] MEDS: CLARITIN 10 MG PO (08:18)
[2023-05-14] MEDS: PLAVIX 75 MG PO (08:18)
[2023-05-14] MEDS: HEPARIN 5000 UNITS SC (08:25)
[2023-05-14] MEDS: PROTONIX 40 MG PO (08:25)
[2023-05-14] MEDS: LASIX 80 MG PO (08:26)
[2023-05-14] MEDS: PEPCID 40 MG PO (08:27)
[2023-05-14] MEDS: ASPIRIN 325 MG PO (08:28)
[2023-05-14] MEDS: VITAMIN D3 (cholecalciferol) PO (08:28)
[2023-05-14] MEDS: HEPARIN 4000 UNITS IV (09:07)
[2023-05-14] MEDS: HEPARIN 25000 UNITS/250 ML IV (09:08)
[2023-05-14 09:09] LABS: APTT 34.4 Sec (23.4-35.0)
[2023-05-14] MEDS: PROSCAR PO (09:27)
[2023-05-14] MEDS: MEGACE ORAL SUSPENSION PO (09:27)
[2023-05-14 09:53] LABS: HDL Cholesterol 35 mg/dl; LDL Cholesterol, Calculated 36 mg/dl; Total Cholesterol 80 mg/dl (50-199); Triglyceride 49 mg/dl (10-149); Very Low Density Lipoprotein 9 mg/dl (0-30)
[2023-05-14 11:58] LABS: Glucose - Point of Care 110 mg/dl (70-99)
--- NOTE | 2023-05-14 12:29 | ITS.CL.CATH ---
Department Assistant - Catheterization
Cardiac Catheterization
Procedure Report:
CARDIAC CATHETERIZATION REPORT
Date of Procedure: 05/14/2023
Referring: Douglas Mayer MD, PhD
Indication: Non-STEMI (troponin 16) . History CABG x 2 in 2019
HEMODYNAMIC DATA
AO: 126/49
LV: 126/22
LEFT VENTRICULOGRAPHY: Moderate to severe global hypokinesis with EF 28%
CORONARY ANGIOGRAPHY
Dominance: Right
Left Main: 30% mid stenosis with angiographic suggestion of prior plaque rupture
LAD: Severely calcified LAD with occlusion of the LAD distal to the takeoff of a large first and very large second septal perforators. A small diagonal branch originates from the second septal welt pocket machine operator. The mid and distal LAD fill via a patent
RITU graft which touches down into the distal LAD with good distal runoff
Circumflex: The circumflex gives rise to a large bifurcating OM1 and continues on to supply a tiny OM 2 and a medium sized OM 3. There is 30-40% mid circumflex stenosis between OM1 and OM 2 takeoffs. OM1 is occluded distal to the bifurcation and
the much larger daughter branch fills via a patent vein graft.
RCA: The RCA is occluded in the midportion (unchanged versus 2019)-there are faint and incomplete [id number] collaterals from the LAD septal perforators
Bypass grafts:
1. The left internal mammary graft to the distal LAD is widely patent with excellent runoff
2. The vein graft to the large branch of the ramus intermedius is patent with excellent runoff
Closure Device: 6 Camb[place] Angio-Seal RFA
Radiation (mGy): 465
DAP (cm2.Gy): 40.9
Fluoroscopy time: 4.9 minutes
CONCLUSIONS
1: Elevated LVEDP
2: Moderate to severe global hypokinesis with EF 20%
3. Severe [place] triple-vessel CAD with patent AYALA-LAD and patent SVG-ramus intermedius
4. No identifiable culprit for his non-STEMI. There is very severe calcific disease of his coronary tree unchanged from the pre-CABG angio from 2019
5. Medical therapy for CAD. Due to his non-STEMI, DAPT for 6-9 months is quite reasonable then monotherapy with either Plavix or aspirin
Copy to: Syed Collins MD, Vic Chappell MD
Des Irizaryr MD, [facility], [facility]
--- NOTE | 2023-05-14 12:55 | CM ---
Placed a call to patient's as patient was not in room. Left message (non urgent) for her as there was no answer. Provided CM contact information and encouraged return call. Will f/u with patient if no return call has been received by spouse.
Plan: Case management will continue to follow and assist with discharge planning. Will need to obtain information for assessment.
--- NOTE | 2023-05-14 13:58 | W.PN.HOSP.TC ---
Today's Communication/Plan
-
hep ggt, DAPT
Toprol
Cath today
Assessment / Plan
Assessment / Plan
Physical Exam
General: Well Developed, Well Nourished and No Apparent Distress
HEENT: NormoCephalic, Moist mucous membranes and Atraumatic
Respiratory: Clear
Cardiac: S1/S2 and Regular Rhythm; No Murmur or Rub
GI: Soft, Non Tender, Non Distended and Normal Bowel Sounds; No Organomegaly
Rectal: Deferred by Provider
Musculoskeletal: No Clubbing, No Cyanosis and No Edema
Skin: No Rash
Neuro: Nonfocal/grossly intact
#CAD s/p CABG
#NSTEMI
-Hep ggt, ASA, Plavix
-Cath Today
-ECHO
-Statin
#Paroxysmal SVT
-Toprol
-Cards on board
Chronic HFrEF
-Echo from March showed moderate to large area of severe hypokinesis involving inferior septum, inferior wall and proximal portion of the lateral wall of the left ventricle
- EF of 35-40 percent
-Continue Lasix
ESRD on hemodialysis Wednesday, , Wednesday
-Nephrology consulted for dialysis on Wednesday
COPD
-Continue inhalers
Type 2 diabetes
-Continue Levemir 10 units
-Insulin sliding scale
Myelodysplastic syndrome
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
BPH
-Continue finasteride
Chronic urinary burning
Constipation
GERD
-Continue famotidine, Protonix
Poor appetite/failure to thrive
-Continue megestrol
Full code
DVT prophylaxis�heparin
Renal diet
Total time spent (3 in minutes):
Total time spent on today's encounter was 50 minutes which included time spent in counseling the patient/family regarding diagnosis and treatment plan as listed above, goals of care, and symptom management. Case was discussed with nursing staff,
specialists, and care coordinators/case management. All labs and imaging personally reviewed by me. Remainder the time spent in detailed review of previous records, lab data, imaging, and other medical provider documentation.
Anticipated Discharge: > 48 hours
Subjective/Interval History
-
Date of Service: May 14, 2023
No acute events, plan for heart catheter
Objective Data
-
Labs:
Laboratory Results
05/14/23 05/14/23 05/14/23
05:52 08:36 08:49
WBC 5.6 Cancelled
Hgb 7.7 L Cancelled
Hct 24.1 L Cancelled
Plt Count 84 L Cancelled
APTT 34.4
Sodium 136
Potassium 3.9
Chloride 102
Carbon Dioxide 27
BUN 37 H
Creatinine 3.7 H
Glucose 149 H
Calcium 9.5
Total Bilirubin 0.9
AST 123 H
ALT 29
Alkaline Phosphatase 71
05/14/23
15:00
WBC
Hgb
Hct
Plt Count
APTT Pending
Sodium
Potassium
Chloride
Carbon Dioxide
BUN
Creatinine
Glucose
Calcium
Total Bilirubin
AST
ALT
Alkaline Phosphatase
Vital Signs:
Vital Signs
Temp Pulse Resp BP Pulse Ox
98.1 F 84 16 114/66 98
05/14/23 11:04 05/14/23 11:04 05/14/23 11:04 05/14/23 11:04 05/14/23 11:04
Review of Systems
-
History Source: Patient and Family (reviewed with )
Constitutional: Denies Fever
EENT: Reports No Symptoms Reported
Respiratory: Reports Trouble Breathing (pt states at baseline status)
Cardiac: Reports No Symptoms
Abdomen/GI: Denies Constipated (resolved)
Genitourinary: Reports No Symptoms
Physical Exam
-
General: Well Developed, Well Nourished and No Apparent Distress
HEENT: Normocephalic, Atraumatic and Moist Mucous Membranes
Cardiac: Regular Rhythm and S1/S2
GI: Soft, Nontender and Nondistended
Musculoskeletal: No Clubbing, No Cyanosis and No Edema
Neuro: Awake, Alert and Oriented
Data Reviewed
-
Diagnostic Radiology: Report Reviewed by me
Labs: Labs Reviewed by me
--- NOTE | 2023-05-14 14:04 | W.CON.NEPH ---
Consultation
-
Date/Time Consultation Requested: 05/14/2023 1000AM
Date/Time Consultation Performed: 05/14/2023 2:00 PM
Requesting Provider: Ritika
Performing Provider: Gege
Reason for Consultation: ESRD
Medical History
-
Chief Complaint: ESRD
History of Present Illness:
82 yo male with PMH of CAD s/p CABG 2018; also ICM EF 35-40%, ESRD on HD on Wednesday dialysis at [facility], hyperphosphatemia on calcium acetate,, MDS with chronic anemia and thrombocytopenia, DM on insuling, called 911
yesterday for chest pain. Upon arrival to ED, was in SVT, which broke with adenosine. Initial troponin was 0.018, but is now 16. EKG with more pronounced lateral ST depression. Of note, he recently had abnormal nuclear stress test as outpatient
with inferolateral ischemia (done in setting of decline in LVEF). He ultimately declined cath because he was not having chest pain. Now, he is agreeable to cath after presentation with non-ST elevation MN.
Past Medical History
1. ESRD.
2. Left upper extremity AV fistula.
3. MDS.
4. Coronary artery disease with bypass grafting.
5. Diabetes mellitus, type 2.
6. 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
7. BPH.
8. Hypertension.
9. Hyperlipidemia.
10.AAA.
11.COPD.
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
Past Medical History: Other
Past Surgical History: Other ( Cardiac, Cholecystectomy, Orthopedic and Other (Pancreatic cyst removal))
Social History
Tobacco: Former Smoker
Alcohol: None
Family History
no CKD
Allergies / Home Medications
Allergy/AdvReac Type Severity Reaction Status Date / Time
adhesive Allergy Unknown Verified 05/04/23 16:35
baclofen Allergy confusion, Verified 05/04/23 16:35
extrapyramidal
symptoms
metoclopramide [From Reglan] Allergy Unknown Verified 05/04/23 16:35
�Medication �Instructions �Recorded �Confirmed �Type
vitamin B complex 1 tab PO DAILY Supplement 10/08/17 05/13/23 History
aspirin 81 mg tablet,delayed 81 mg PO QPM Blood clot 01/11/19 05/13/23 History
release prevention/tx
coenzyme Q10 100 mg capsule (Co 100 mg PO BID Heart 01/11/19 05/13/23 History
Q-10) disease/condition
darbepoetin дмитрий in polysorbat 10 0 dose IJ DAILYPRN PRN low hb 01/11/19 05/13/23 History
mcg/0.4 mL in polysorbate
injection syringe (Aranesp)
finasteride 5 mg tablet 5 mg PO DAILY Urinary issue 01/11/19 05/13/23 History
calcium acetate 667 mg tablet 1,334 mg PO MEALS High phosphorous 09/15/19 05/13/23 History
insulin aspart U-100 100 unit/mL 0 units SC TIDPRN PRN high blood 09/15/19 05/13/23 History
(3 mL) subcutaneous pen (Novolog sugar
FlexPen U-100 Insulin aspart)
rosuvastatin 10 mg tablet 10 mg PO QPM High cholesterol 09/15/19 05/13/23 History
furosemide 80 mg tablet 80 mg PO SUMOWEFR Fluid 02/16/22 05/13/23 History
retention/Swelling
albuterol sulfate 90 mcg/actuation 2 puff inhalation R Q4HPRN PRN 06/07/22 05/13/23 History
aerosol inhaler sob/wheezing
clopidogrel 75 mg tablet 75 mg PO DAILY Blood clot 06/07/22 05/13/23 History
prevention/tx
umeclidinium 62.5 mcg-vilanterol 1 inh inhalation R DAILY 06/07/22 05/13/23 History
25 mcg/actuation powdr for Lung/breathing issues
inhalation (Anoro Ellipta)
acetaminophen 500 mg tablet 500 mg PO TID PRN mild pain 10/06/22 05/13/23 History
(Tylenol Extra Strength)
cholecalciferol (vitamin D3) 25 25 mcg PO BID Supplement 10/06/22 05/13/23 History
mcg (1,000 unit) capsule (Vitamin
D3)
loratadine 10 mg tablet 10 mg PO DAILY Allergies 10/06/22 05/13/23 History
(Allerclear)
metoprolol succinate 25 mg 25 mg PO BID Heart Failure 10/06/22 05/13/23 History
tablet,extended release 24 hr
pantoprazole 40 mg tablet,delayed 40 mg PO DAILY Gastrointestinal 10/06/22 05/13/23 History
release (Protonix) Issue
B complex 11-folic acid 1 mg-C 100 1 tab PO QPM Supplement 05/04/23 05/13/23 History
mg-biotin 300 mcg-zinc 50 mg
tablet (Dialyvite)
biotin 5,000 mcg chewable tablet 5,000 mcg PO BID Supplement 05/04/23 05/13/23 History
famotidine 40 mg tablet 40 mg PO BID Gastrointestinal Issue 05/04/23 05/13/23 History
insulin detemir U-100 100 unit/mL 10 - 12 unit SC QPM Diabetes 05/04/23 05/13/23 History
subcutaneous solution (Levemir
U-100 Insulin)
megestrol 625 mg/5 mL (125 mg/mL) 625 mg PO SUMOWEFR Appitite 05/04/23 05/13/23 History
oral suspension
melatonin 5 mg tablet 5 mg PO HS PRN sleep 05/14/23 05/14/23 History
Review of Systems
-
History Source: Patient
All other systems: Negative unless noted
Constitutional: No Symptoms
EENT: No Symptoms
Respiratory: No Symptoms
Cardiac: Chest Pain (Not currently active)
: No Symptoms
Musculoskeletal: No Symptoms
Skin: No Symptoms
Neurological: No Symptoms
Endocrine: No Symptoms
Hematologic/Lymphatic: No Symptoms and Other (Left upper extremity AV fistula)
Physical Exam
Vital Signs
Vital Signs
Temp Pulse Resp BP Pulse Ox
98.1 F 84 16 114/66 98
05/14/23 11:04 05/14/23 11:04 05/14/23 11:04 05/14/23 11:04 05/14/23 11:04
Lab Results
05/14/23 08:36
05/14/23 05:52
WBC Cancelled 05/14/23 08:36
RBC Cancelled 05/14/23 08:36
Hgb Cancelled 05/14/23 08:36
Hct Cancelled 05/14/23 08:36
Plt Count Cancelled 05/14/23 08:36
Sodium 136 mmol/L (135-145) 05/14/23 05:52
Potassium 3.9 mmol/L (3.5-5.1) 05/14/23 05:52
Chloride 102 mmol/L (98-107) 05/14/23 05:52
Carbon Dioxide 27 mmol/L (22-30) 05/14/23 05:52
BUN 37 mg/dl (9-20) H 05/14/23 05:52
Creatinine 3.7 mg/dL (0.7-1.3) H 05/14/23 05:52
eGFR 15.73 05/14/23 05:52
Glucose 149 mg/dl (70-99) H 05/14/23 05:52
Calcium 9.5 mg/dl (8.4-10.2) 05/14/23 05:52
Albumin 3.5 g/dl (3.5-5.0) 05/14/23 05:52
Physical Exam
General: AOx3, No Distress and Nontoxic
HEENT: PERRL, EOMI, Anicteric, Conjunctivae Clear, Ear/Nose Intact, Hearing Normal, Oropharynx Clear/Moist, Neck Supple, Trachea Midline, No JVD and No Thyromegaly
Respiratory: Clear
Cardiac: S1/S2, Regular Rate/Rhythm and Other (Left upper extremity AV fistula with good thrill and bruit)
Breast: Deferred by me
Abdomen: Soft, Nontender, Nondistended, Normal Bowel Sounds and No Hepatosplenomegaly
Rectal: Deferred by Provider
Genito-urinary: No Costovertebral Tender
Musculoskeletal: No Clubbing, No Cyanosis and No Edema
Skin: No Rash, Warm, Dry, No Cyanosis and Normal Turgor
Neuro: Nonfocal/Grossly Intact, CN II-XII (Intact) and Strength (5 out of 5 both upper and lower EXTR)
Hematologic/Lymphatic: No Cervical Lymphadenopathy, No Submandibular Lymphadenopathy and No Supraclavicular Lymphadenopathy
Psych: Mood/afflect pleasant, Insight/judgement good, Appropriate and Other
Assessment/Plan
-
Impression:
SVT/non-ST elevation MN
ESRD on hemodialysis on Wednesday, , Wednesday
Left UE AVF
Acute on chronic macrocytic anemia
Chronic anemia secondary to renal disease
Hypokalemia
Constipation
Chronic urinary burning
CAD
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
COPD
Type 2 diabetes
MDS
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
BPH
GERD
Poor appetite/failure to thrive-on Marinol
Hyperphosphatemia
Plan:
-Dialysis tomorrow, orders provided, we will attempt to push ultrafiltration as hemodynamically tolerated given chest x-ray findings with some residual interstitial edema
-Will hold heparin on dialysis given history of thrombocytopenia
-Maintain phosphate binder therapy with meals re: hyperphosphatemia
-HANY therapy to be be provided in setting of anemia and MDS
-Currently hemodynamically stable on antihypertensives
-Dietary restrictions and fluid restriction provided
-Status postcardiac cath without PCI or stent
Data Reviewed
-
Radiology: Image Personally Visualized and interpreted (Chest x-ray personally reviewed some noted interstitial edema sternal wires)
Medical Tests (Nuc Med, Echo etc): Other (EKG report reviewed sinus rhythm left axis deviation incomplete left bundle branch block lateral ischemic changes at97 bpm)
Labs: Labs Reviewed by me (Reviewed BMP CBC)
Old Records: Reviewed (Reviewed former nephrology consult from May 05, 2023 re: ESRD with sepsis)
[2023-05-14] MEDS: NOVOLOG FLEXPEN-LOW RESISTANCE SC ×2 (14:14→18:20)
--- NOTE | 2023-05-14 14:21 | PTCARENOTE ---
Pt received from phlebotomist lab assistant. (R) femoral artery site C/D/I. Femoral and pedal pulse palpable. Site check and neurovascular assessment documented. Pt and at bedside both informed of activity and head of bed restrictions for 3 hours.
[2023-05-14 16:44] LABS: Glucose - Point of Care 147 mg/dl (70-99)
[2023-05-14] MEDS: IMDUR (EXTENDED RELEASE) 30 MG PO (16:57)
[2023-05-14] MEDS: CRESTOR 10 MG PO (18:05)
[2023-05-14] MEDS: NEPHROCAP 1 CAPSULE PO (18:05)
[2023-05-14] MEDS: ASPIR LOW (ENTERIC COATED) 81 MG PO (18:13)
--- NOTE | 2023-05-14 18:49 | PTCARENOTE ---
Assumed care of pt from previous nurse. Pt denies pain. Post cath checks wnl. pt is on tele running nsr. Pt call ayala is within reach, pt rings clay. will cont to monitor.
[2023-05-14] MEDS: VITAMIN D3 (cholecalciferol) 25 MCG PO (20:00)
[2023-05-14] MEDS: PEPCID 10 MG PO (21:04)
[2023-05-14] MEDS: MELATONIN 5 MG PO (21:04)
[2023-05-14 21:38] LABS: Glucose - Point of Care 171 mg/dl (70-99)
[2023-05-15 03:41] VITALS: BP 129/70
[2023-05-15 04:38] VITALS: BMI 23.9
[2023-05-15] MEDS: STRIVERDI RESPIMAT 2 PUFF INH (07:26)
[2023-05-15] MEDS: SPIRIVA RESPIMAT 2.5 MCG 2 PUFF INH (07:26)
[2023-05-15 07:41] VITALS: BP 136/66
[2023-05-15 07:53] LABS: Hemoglobin 8.3 g/dL (13.0-18.0); Mean Corp Hgb Conc. 31.9 g/dL (33.0-37.0); Mean Corpuscular Hgb 31.6 pg (27.0-31.0); Mean Corpuscular Volume 98.9 fL (80.0-94.0); Mean Platelet Volume 12.1 fL (7.4-10.4); Platelet Count 92 10^3/uL (130-400); Red Blood Cell Count 2.63 10^6/uL (4.70-6.10); Red Cell Dist. Width 18.1 % (11.5-14.5); White Blood Cell Count 7.8 10^3/uL (4.8-10.8)
[2023-05-15 08:03] LABS: Glucose - Point of Care 143 mg/dl (70-99)
[2023-05-15 08:15] LABS: Blood Urea Nitrogen 53 mg/dl (9-20); Calcium 9.5 mg/dl (8.4-10.2); Carbon Dioxide 25 mmol/L (22-30); Chloride 102 mmol/L (98-107); Estimated Creatinine Clearance 10 ml/min; Glucose 121 mg/dl (70-99); Sodium 136 mmol/L (135-145); eGFR 9.78
[2023-05-15] MEDS: NOVOLOG FLEXPEN-LOW RESISTANCE SC ×2 (08:47→12:46)
[2023-05-15] MEDS: PHOSLO PO ×2 (08:47→14:10)
[2023-05-15] MEDS: RETACRIT 10000 UNITS IV (09:16)
--- NOTE | 2023-05-15 11:18 | CM ---
Addendum entered by Shayna Tipton 05/15/23 14:31:
Pts at bedside - reports pt is max assit of 2
Need PT/OT consult/eval for safe dispo
Plan -TBD based on PT/OT recs
Original Note:
Spoke with pt at bedside
Pt lives in independent living at [facility] with his
Some assist needed at home
Receives HD at [facility] //Wed
DME - wheel chair, rolling walker and cane
HH - has had [facility] in past
SNF - has been to [facility] in past for SNF
Has ride with family to home
PCP - Dr Boyd
Pharm - [facility]
Plan - Anticipate return to previous setting - no needs
[2023-05-15 11:35] VITALS: BP 158/71
[2023-05-15] MEDS: TOPROL XL 25 MG PO ×2 (11:39→20:29)
[2023-05-15] MEDS: PROTONIX 40 MG PO (11:39)
[2023-05-15] MEDS: IMDUR (EXTENDED RELEASE) 30 MG PO (11:39)
[2023-05-15] MEDS: B COMPLEX w/VITAMIN C 1 CAPLET PO (11:39)
[2023-05-15] MEDS: VITAMIN D3 (cholecalciferol) 25 MCG PO ×2 (11:39→20:29)
[2023-05-15] MEDS: PHOSLO 1334 MG PO ×2 (11:39→17:21)
[2023-05-15] MEDS: PLAVIX 75 MG PO (11:40)
[2023-05-15] MEDS: PROSCAR 5 MG PO (11:40)
[2023-05-15] MEDS: CLARITIN 10 MG PO (11:41)
[2023-05-15 11:52] LABS: Glucose - Point of Care 151 mg/dl (70-99)
--- NOTE | 2023-05-15 13:18 | W.PN.HOSP.TC ---
Addendum entered and electronically signed by Esdras Cerrato MD 05/15/23 13:21:
Correction:
start isosorbide mononitrate not hydral
Original Note:
Today's Communication/Plan
-
medical therapy with DAPT
Hydralazine
F/u PCP, Cards outpatient
Assessment / Plan
Assessment / Plan
Physical Exam
General: Well Developed, Well Nourished and No Apparent Distress
HEENT: NormoCephalic, Moist mucous membranes and Atraumatic
Respiratory: Clear
Cardiac: S1/S2 and Regular Rhythm; No Murmur or Rub
GI: Soft, Non Tender, Non Distended and Normal Bowel Sounds; No Organomegaly
Rectal: Deferred by Provider
Musculoskeletal: No Clubbing, No Cyanosis and No Edema
Skin: No Rash
Neuro: Nonfocal/grossly intact
#CAD s/p CABG
#NSTEMI
-ASA, Plavix�6- 9 months
-Cath 05/14, no interventions, elevated LVEDP�getting dialysis. No identified culprit for his non-STEMI. Medical intervention continued.
-ECHO EF 20%
-Statin
� Start hydralazine
#Paroxysmal SVT
-Toprol
-Cards on board
Chronic HFrEF
-Echo from March showed moderate to large area of severe hypokinesis involving inferior septum, inferior wall and proximal portion of the lateral wall of the left ventricle
- EF of 35-40 percent
-Continue Lasix
ESRD on hemodialysis Wednesday, , Wednesday
-Nephrology consulted for dialysis on Wednesday
COPD
-Continue inhalers
Type 2 diabetes
-Continue Levemir 10 units
-Insulin sliding scale
Myelodysplastic syndrome
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
BPH
-Continue finasteride
Chronic urinary burning
Constipation
GERD
-Continue famotidine, Protonix
Poor appetite/failure to thrive
-Continue megestrol
Full code
DVT prophylaxis�heparin
Renal diet
More than 30 minutes spent in discharge including
Final examination of the patient
Summarizing hospital stay
Instructions for continuing care to all relevant caregivers
Preparation of discharge records, prescriptions, and referral forms
Total time spent (35 in minutes):
Anticipated Discharge: Today
Subjective/Interval History
-
Date of Service: May 15, 2023
No acute events, HD currently
Objective Data
-
Labs:
Laboratory Results
05/15/23
07:23
WBC 7.8
Hgb 8.3 L
Hct 26.0 L
Plt Count 92 L
Sodium 136
Potassium 4.0
Chloride 102
Carbon Dioxide 25
BUN 53 H
Creatinine 5.5 H*
Glucose 121 H
Calcium 9.5
Vital Signs:
Vital Signs
Temp Pulse Resp BP Pulse Ox
97.8 F 81 17 158/71 97
05/15/23 11:35 05/15/23 11:35 05/15/23 11:35 05/15/23 11:35 05/15/23 11:35
I&O
05/14/23 05/15/23 05/16/23
06:59 06:59 06:59
Intake Total 240 / 240
Balance 240 / 240
Review of Systems
-
History Source: Patient and Family (reviewed with )
Constitutional: Denies Fever
EENT: Reports No Symptoms Reported
Respiratory: Reports Trouble Breathing (pt states at baseline status)
Cardiac: Reports No Symptoms
Abdomen/GI: Denies Constipated (resolved)
Genitourinary: Reports No Symptoms
Physical Exam
-
General: Well Developed, Well Nourished and No Apparent Distress
HEENT: Normocephalic, Atraumatic and Moist Mucous Membranes
Cardiac: Regular Rhythm and S1/S2
GI: Soft, Nontender and Nondistended
Musculoskeletal: No Clubbing, No Cyanosis and No Edema
Neuro: Awake, Alert and Oriented
--- NOTE | 2023-05-15 13:56 | W.PN.NEPH.HD ---
Assessment
-
Seen on HD. no complaints. still feels weak. VSS. access ok
dc planning
Progress Note - Hemodialysis
-
Date of Service: May 15, 2023
Duration: 30 minutes and 3 hours
Potassium Bath: 3
Calcium Bath: 2.5
Opti-Dialyzer: 160
Ultrafiltration: Other (3kg)
Blood Flow: 400
Dialysate Flow: 600
Heparin: no
EPO: [id number] units
[2023-05-15 15:37] VITALS: BP 115/62
--- NOTE | 2023-05-15 15:37 | W.PN.CD ---
Today's Communication / Plan
-
No complications from cath yesterday
Tele good last 18 hrs
OK for home and f/u with his outpatient herpetology teacher Dr. Collins in 2 weeks
Cardiology will sign off. Please call with questions
Impression / Plan
-
NSTEMI with known CAD with hx CABG 2018
- Cath yesterday favors med rx
SVT:
-stable s/p adenosine
-continue metoprolol and follow telemetry
- Tele overnight good
- If SVT recurs can further increase BB but certainly can consider EPS/ablation
Chronic HFrEF:
-chronic, stable
-volume management by HD
ICM EF 35-40%:
-continue BB
-GDMT limited by BP (when on HD per OP notes) and renal function
-repeating echo with NSTEMI => 05/14/2023 LVEF still 35-40%
Valvular heart disease
- mild , mod TR
ESRD on HD
Anemia of chronic disease
Physical Exam
Vital Signs/Labs
Vital Signs
Temp Pulse Resp BP Pulse Ox
97.9 F 89 17 115/62 93
05/15/23 15:37 05/15/23 15:37 05/15/23 15:37 05/15/23 15:37 05/15/23 15:37
05/14/23 05/15/23 05/16/23
06:59 06:59 06:59
Actual Weight 68.946 kg 69.201 kg
05/15/23 07:23
05/15/23 07:23
PT 15.1 Sec (11.4-14.6) H 05/13/23 21:33
INR 1.18 05/13/23 21:33
APTT Cancelled 05/14/23 15:00
Triglycerides Cancelled 05/14/23 08:41
LDL Cholesterol, Calc Cancelled 05/14/23 08:41
VLDL Cholesterol, Calc Cancelled 05/14/23 08:41
HDL Cholesterol Cancelled 05/14/23 08:41
TSH 1.17 uIU/ml (0.47-4.68) 05/14/23 00:42
LAB Results
05/13/23 05/14/23 05/14/23
21:33 00:42 05:52
Troponin I 0.018 3.650 H* D 16.600 H* D
05/14/23 05/14/23 05/14/23
13:16 17:46 19:47
Troponin I 19.100 H* Cancelled 13.200 H* D
Physical Exam
Constitutional: No acute distress
EENT: Anicteric
Cardiovascular: Rhythm & rate is regular and Pedal edema is absent
Respiratory: Respiratory effort normal and Lungs clear to auscul.
GI: Soft
Neuro/Psych: Alert
Other: Cath Site (groin site c/d/i no bleeding, bruit, or hematoma)
Data Reviewed
-
Date of Service: May 15, 2023
[2023-05-15 17:05] LABS: Glucose - Point of Care 179 mg/dl (70-99)
[2023-05-15] MEDS: NOVOLOG FLEXPEN-LOW RESISTANCE 1 UNITS SC (17:20)
[2023-05-15] MEDS: NEPHROCAP 1 CAPSULE PO (17:21)
[2023-05-15] MEDS: ASPIR LOW (ENTERIC COATED) 81 MG PO (17:21)
[2023-05-15] MEDS: CRESTOR 10 MG PO (17:21)
[2023-05-15] MEDS: LEVEMIR 0.100000000000000006 UNITS SC (17:44)
--- NOTE | 2023-05-15 18:22 | PTCARENOTE ---
PT with HD today 2 liters removed. Post HD he was supposed to be DC. After HD he was weak lethargic and unable to transfer to chair by self. pulled me aside and let me know that she will be unaable to get him into the car, out of the care or
manage him at the current activity level. I immediatly called MD and CM. PT ordered . Consult not completed today. Dc was cancelled. At 1700 Pt much better back to baseline and able to walk from chair to bed with one assist. PT currently in room
resting
[2023-05-15 19:43] VITALS: BP 105/57
[2023-05-15] MEDS: PEPCID 10 MG PO (20:29)
[2023-05-15] MEDS: MELATONIN 5 MG PO (21:16)
[2023-05-15 21:19] LABS: Glucose - Point of Care 307 mg/dl (70-99)
[2023-05-15] MEDS: NOVOLOG FLEXPEN 3 UNITS SC (21:40)
[2023-05-15 23:52] VITALS: BP 111/54
[2023-05-16 00:02] LABS: Glucose - Point of Care 129 mg/dl (70-99)
[2023-05-16] MEDS: TYLENOL 500 MG PO (01:58)
[2023-05-16 03:54] VITALS: BP 109/48
[2023-05-16 06:00] VITALS: BMI 23.0
[2023-05-16 07:08] LABS: Glucose - Point of Care 100 mg/dl (70-99)
[2023-05-16 07:18] LABS: Hematocrit 24.7 % (39.0-52.0); Hemoglobin 8.1 g/dL (13.0-18.0); Mean Corp Hgb Conc. 32.8 g/dL (33.0-37.0); Mean Corpuscular Volume 97.6 fL (80.0-94.0); Mean Platelet Volume 12.2 fL (7.4-10.4); Platelet Count 88 10^3/uL (130-400); Red Blood Cell Count 2.53 10^6/uL (4.70-6.10); Red Cell Dist. Width 17.8 % (11.5-14.5); White Blood Cell Count 5.2 10^3/uL (4.8-10.8)
[2023-05-16] MEDS: STRIVERDI RESPIMAT 2 PUFF INH (07:24)
[2023-05-16] MEDS: SPIRIVA RESPIMAT 2.5 MCG 2 PUFF INH (07:24)
[2023-05-16 07:36] VITALS: BP 116/56
[2023-05-16] MEDS: TOPROL XL 25 MG PO (09:23)
[2023-05-16] MEDS: PHOSLO 1334 MG PO ×2 (09:23→12:20)
[2023-05-16] MEDS: IMDUR (EXTENDED RELEASE) 30 MG PO (09:24)
[2023-05-16] MEDS: PROSCAR 5 MG PO (09:24)
[2023-05-16] MEDS: B COMPLEX w/VITAMIN C 1 CAPLET PO (09:24)
[2023-05-16] MEDS: PLAVIX 75 MG PO (09:24)
[2023-05-16] MEDS: VITAMIN D3 (cholecalciferol) 25 MCG PO (09:24)
[2023-05-16] MEDS: PROTONIX 40 MG PO (09:24)
[2023-05-16] MEDS: CLARITIN 10 MG PO (09:24)
[2023-05-16] MEDS: NOVOLOG FLEXPEN-LOW RESISTANCE SC (09:24)
[2023-05-16] MEDS: MEGACE ORAL SUSPENSION 625 MG PO (09:27)
[2023-05-16] MEDS: LASIX 80 MG PO (09:27)
[2023-05-16 11:23] VITALS: BP 130/69
--- NOTE | 2023-05-16 11:38 | W.PN.NEPH.PH ---
Today's Communication / Plan
-
dc
Assessment/Plan
-
Impression:
SVT/non-ST elevation TN
ESRD on hemodialysis on Wednesday, , Wednesday
Left UE AVF
Acute on chronic macrocytic anemia
Chronic anemia secondary to renal disease
Hypokalemia
Constipation
Chronic urinary burning
CAD
Chronic combined HFrEF EF 35-40%, [id number]
COPD
Type 2 diabetes
MDS
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
BPH
GERD
Poor appetite/failure to thrive-on Marinol
Hyperphosphatemia
Plan:
-for dc
-HD at his home unit
-
-
Date of Service: May 16, 2023
CC / HPI / ROS
-
Chief Complaint:
ESRD
History of Present Illness:
tolerated HD yesterday
BP stable
feels stronger than yesterday
Review of Systems:
no CP/SOB
Labs
-
Labs:
WBC 5.2 10^3/uL (4.8-10.8) 05/16/23 06:47
RBC 2.53 10^6/uL (4.70-6.10) L 05/16/23 06:47
Hgb 8.1 g/dL (13.0-18.0) L 05/16/23 06:47
Hct 24.7 % (39.0-52.0) L 05/16/23 06:47
Plt Count 88 10^3/uL (130-400) L 05/16/23 06:47
Sodium 136 mmol/L (135-145) 05/15/23 07:23
Potassium 4.0 mmol/L (3.5-5.1) 05/15/23 07:23
Chloride 102 mmol/L (98-107) 05/15/23 07:23
Carbon Dioxide 25 mmol/L (22-30) 05/15/23 07:23
BUN 53 mg/dl (9-20) H 05/15/23 07:23
Creatinine 5.5 mg/dL (0.7-1.3) H* 05/15/23 07:23
eGFR 9.78 05/15/23 07:23
Glucose 121 mg/dl (70-99) H 05/15/23 07:23
Calcium 9.5 mg/dl (8.4-10.2) 05/15/23 07:23
Albumin 3.5 g/dl (3.5-5.0) 05/14/23 05:52
Physical Exam
-
Vital Signs:
Vital Signs
Temp Pulse Resp BP Pulse Ox
97.9 F 81 16 130/69 99
05/16/23 11:23 05/16/23 11:23 05/16/23 11:23 05/16/23 11:23 05/16/23 11:23
Cardiovascular:: Regular rate and rhythm
Respiratory:: Bilateral: CTA
Lung Excursion:: Normal
Abdomen:: Nontender and Soft
Bowel Sounds:: Normal
Extremity Edema:: None: Bilateral:
[2023-05-16 12:07] LABS: Glucose - Point of Care 282 mg/dl (70-99)
[2023-05-16] MEDS: NOVOLOG FLEXPEN-LOW RESISTANCE 3 UNITS SC (12:20)
--- NOTE | 2023-05-16 12:56 | W.PN.HOSP.TC ---
Addendum entered and electronically signed by Esdras Cerrato MD 05/17/23 15:47:
[id number]
Original Note:
Today's Communication/Plan
-
medical therapy with DAPT
Imdur
F/u PCP, Cards outpatient
pending PT eval
Assessment / Plan
Assessment / Plan
Physical Exam
General: Well Developed, Well Nourished and No Apparent Distress
HEENT: NormoCephalic, Moist mucous membranes and Atraumatic
Respiratory: Clear
Cardiac: S1/S2 and Regular Rhythm; No Murmur or Rub
GI: Soft, Non Tender, Non Distended and Normal Bowel Sounds; No Organomegaly
Rectal: Deferred by Provider
Musculoskeletal: No Clubbing, No Cyanosis and No Edema
Skin: No Rash
Neuro: Nonfocal/grossly intact
#CAD s/p CABG
#NSTEMI
-ASA, Plavix�6- 9 months
-Cath 05/14, no interventions, elevated LVEDP�getting dialysis. No identified culprit for his non-STEMI. Medical intervention continued.
-ECHO EF 20%
-Statin
� Start Imdur
#Paroxysmal SVT
-Toprol
-Cards on board
Chronic HFrEF
-Echo from March showed moderate to large area of severe hypokinesis involving inferior septum, inferior wall and proximal portion of the lateral wall of the left ventricle
- EF of 35-40 percent
-Continue Lasix
ESRD on hemodialysis Wednesday, , Wednesday
-Nephrology consulted for dialysis on Wednesday
COPD
-Continue inhalers
Type 2 diabetes
-Continue Levemir 10 units
-Insulin sliding scale
Myelodysplastic syndrome
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
BPH
-Continue finasteride
Chronic urinary burning
Constipation
GERD
-Continue famotidine, Protonix
Poor appetite/failure to thrive
-Continue megestrol
Full code
DVT prophylaxis�heparin
Renal diet
DC ready - pending PT eval; had stated patient was v weak yesterday
More than 30 minutes spent in discharge including
Final examination of the patient
Summarizing hospital stay
Instructions for continuing care to all relevant caregivers
Preparation of discharge records, prescriptions, and referral forms
Total time spent (35 in minutes):
Anticipated Discharge: Today
Subjective/Interval History
-
Date of Service: May 16, 2023
no acute events
Objective Data
-
Labs:
Laboratory Results
05/16/23
06:47
WBC 5.2
Hgb 8.1 L
Hct 24.7 L
Plt Count 88 L
Vital Signs:
Vital Signs
Temp Pulse Resp BP Pulse Ox
97.9 F 81 16 130/69 99
05/16/23 11:23 05/16/23 11:23 05/16/23 11:23 05/16/23 11:23 05/16/23 11:23
I&O
05/15/23 05/16/23 05/17/23
06:59 06:59 06:59
Intake Total 240 / 240 120 / 120
Output Total 75 / 75
Balance 240 / 240 45 / 45
Review of Systems
-
History Source: Patient
All other systems: Not reviewed unless documented
Data Reviewed
-
Diagnostic Radiology: Report Reviewed by me
Labs: Labs Reviewed by me
--- NOTE | 2023-05-16 12:59 | W.DS.TRANS ---
DC Summary - Spragger
-
Discharge Instructions:
Sleep Apnea Risk Intermediate
Discharge Diagnosis/Procedures NSTEMI, Cardiac cath
Diet Low Cholesterol,Diabetic, Carb Controlled,Low
Fat
Activity As tolerated
Driving Restrictions No driving for 24 hours
Blood Work cbc, bmp in 5 days with pcp
Instructions:
Stand-Alone Forms: DC Instructions- Cath/EP Lab
Changes to Home Medications: Yes
Discharge Medications:
DC Medications w/original date entered in [employer]
vitamin B complex 1 tab PO DAILY Supplement 10/08/17
aspirin 81 mg tablet,delayed release 81 mg PO QPM Blood clot prevention/tx 01/11/19
coenzyme Q10 100 mg capsule (Co Q-10) 100 mg PO BID Heart disease/condition 01/11/19
darbepoetin дмитрий in polysorbat 10 mcg/0.4 mL in polysorbate injection syringe (Aranesp) 0 dose IJ DAILYPRN PRN low hb 01/11/19
finasteride 5 mg tablet 5 mg PO DAILY Urinary issue 01/11/19
calcium acetate 667 mg tablet 1,334 mg PO MEALS High phosphorous 09/15/19
insulin aspart U-100 100 unit/mL (3 mL) subcutaneous pen (Novolog FlexPen U-100 Insulin aspart) 0 units SC TIDPRN PRN high blood sugar 09/15/19
rosuvastatin 10 mg tablet 10 mg PO QPM High cholesterol 09/15/19
furosemide 80 mg tablet 80 mg PO SUMOWEFR Fluid retention/Swelling 02/16/22
albuterol sulfate 90 mcg/actuation aerosol inhaler 2 puff inhalation R Q4HPRN PRN sob/wheezing 06/07/22
clopidogrel 75 mg tablet 75 mg PO DAILY Blood clot prevention/tx 06/07/22
umeclidinium 62.5 mcg-vilanterol 25 mcg/actuation powdr for inhalation (Anoro Ellipta) 1 inh inhalation R DAILY Lung/breathing issues 06/07/22
acetaminophen 500 mg tablet (Tylenol Extra Strength) 500 mg PO TID PRN mild pain 10/06/22
cholecalciferol (vitamin D3) 25 mcg (1,000 unit) capsule (Vitamin D3) 25 mcg PO BID Supplement 10/06/22
loratadine 10 mg tablet (Allerclear) 10 mg PO DAILY Allergies 10/06/22
metoprolol succinate 25 mg tablet,extended release 24 hr 25 mg PO BID Heart Failure 10/06/22
pantoprazole 40 mg tablet,delayed release (Protonix) 40 mg PO DAILY Gastrointestinal Issue 10/06/22
B complex 11-folic acid 1 mg-C 100 mg-biotin 300 mcg-zinc 50 mg tablet (Dialyvite) 1 tab PO QPM Supplement 05/04/23
biotin 5,000 mcg chewable tablet 5,000 mcg PO BID Supplement 05/04/23
insulin detemir U-100 100 unit/mL subcutaneous solution (Levemir U-100 Insulin) 10 - 12 unit SC QPM Diabetes 05/04/23
megestrol 625 mg/5 mL (125 mg/mL) oral suspension 625 mg PO SUMOWEFR Appitite 05/04/23
melatonin 5 mg tablet 5 mg PO HS PRN sleep 05/14/23
famotidine 20 mg tablet 10 mg (1/2 x 20 mg) PO HS 30 days #15 tabs 05/15/23
isosorbide mononitrate 30 mg tablet,extended release 24 hr 30 mg PO DAILY 30 days #30 tabs 05/15/23
Home Medication Changes
famotidine 20 mg tablet 10 mg (1/2 x 20 mg) PO HS 30 days #15 tabs 05/15/23
isosorbide mononitrate 30 mg tablet,extended release 24 hr 30 mg PO DAILY 30 days #30 tabs 05/15/23
Pending Results: No
[2023-05-16 14:41] VITALS: O2SAT 92
--- NOTE | 2023-05-16 15:14 | CM ---
PT seen by PT/OT - recommending home with HH
Spoke with pt and his at bedside
Currently receiving services with [facility]
Referral sent in [facility] to resume services
Pts will transport pt when discharged
Plan - home to previous setting with [facility]
Fax - [phone]
[2023-05-16 15:25] VITALS: BP 138/57
--- NOTE | 2023-05-16 16:31 | PTCARENOTE ---
Spoke to MD about DC instructions. PT stated he was not checking BS TID at home. I called md and he cancelled that. PT to go home on home meds plus new prescriptions
== END 2023-05-16 16:40 | disposition home health service (06) | DRG 280 ==
LOC: 3 WEST ACU 23:06
PROVIDERS: Internal Medicine Cardiovascular Disease; Nurse Practitioner; Nurse Practitioner Adult Health; Specialist; ADMITTING PHYSICIAN Hospitalist; ATTENDING PHYSICIAN Internal Medicine; CONSULT PHYSICIAN Specialist; EMERGENCY PHYSICIAN Emergency Medicine; FAMILY PHYSICIAN Internal Medicine; OTHER PHYSICIAN Internal Medicine
PROC: 4A023N7 Measurement of Cardiac Sampling and Pressure, Left Heart, Percutaneous Approach (ICD-10-PCS; 2023-05-14)
PROC: B2151ZZ Fluoroscopy of Left Heart using Low Osmolar Contrast (ICD-10-PCS; 2023-05-14)
PROC: B2111ZZ Fluoroscopy of Multiple Coronary Arteries using Low Osmolar Contrast (ICD-10-PCS; 2023-05-14)
PROC: B2131ZZ Fluoroscopy of Multiple Coronary Artery Bypass Grafts using Low Osmolar Contrast (ICD-10-PCS; 2023-05-14)
PROC: 5A1D70Z Performance of Urinary Filtration, Intermittent, Less than 6 Hours Per Day (ICD-10-PCS; 2023-05-15)
DX: I21.4 Non-ST elevation (NSTEMI) myocardial infarction (principal); N18.6 End stage renal disease; I13.2 Hypertensive heart and chronic kidney disease with heart failure and with stage 5 chronic kidney disease, or end stage renal disease; I47.19 Other supraventricular tachycardia; I50.22 Chronic systolic (congestive) heart failure; Z96.611 Presence of right artificial shoulder joint; D53.9 Nutritional anemia, unspecified; D69.6 Thrombocytopenia, unspecified; E11.22 Type 2 diabetes mellitus with diabetic chronic kidney disease; I44.7 Left bundle-branch block, unspecified; J44.9 Chronic obstructive pulmonary disease, unspecified; D46.9 Myelodysplastic syndrome, unspecified; D63.1 Anemia in chronic kidney disease; N40.0 Benign prostatic hyperplasia without lower urinary tract symptoms; D69.59 Other secondary thrombocytopenia; E83.39 Other disorders of phosphorus metabolism; K59.00 Constipation, unspecified; K21.9 Gastro-esophageal reflux disease without esophagitis; R62.7 Adult failure to thrive; I25.10 Atherosclerotic heart disease of native coronary artery without angina pectoris; Z99.2 Dependence on renal dialysis; Z88.8 Allergy status to other drugs, medicaments and biological substances; Z91.048 Other nonmedicinal substance allergy status; Z87.891 Personal history of nicotine dependence; Z95.1 Presence of aortocoronary bypass graft
CPT/HCPCS: 93308; 71045; 80048; 80053; 80061; 82962; 84443; 84484; 85025; 85027; 85610; 85730; 87070; 93005; 93321; 93325; 93459; 94640; 96374; 97116; 97163; 97166; 99291; C1760; C1894; G0257; J0153; Q5106; Q9967

== ENCOUNTER → 2023-06-18 07:05 | Outpatient (REF) | payer MEDICARE, SELFPAY | LOC: MRI 3T 07:05 | PROVIDERS: ATTENDING PHYSICIAN Internal Medicine Hematology & Oncology; FAMILY PHYSICIAN Internal Medicine | DX: N18.4 Chronic kidney disease, stage 4 (severe) (principal); D63.1 Anemia in chronic kidney disease; D69.6 Thrombocytopenia, unspecified; N63.42 Unspecified lump in left breast, subareolar | CPT/HCPCS: 70551 ==

== ENCOUNTER 2023-07-12 14:34 | Inpatient (IN) | payer MEDICARE, SELFPAY ==
[2023-07-12] VITALS (12 sets, daily range): BP systolic 125–158; BP diastolic 48–75; BMI 24.1; BMI 23.7
[2023-07-12 10:39] LABS: % Basophils 0.3 % (0-2); % Eosinophils 4.5 % (0-6); % Immature Granulocytes 0.5 % (0-0.5); % Monocytes 8.1 % (1.7-9.3); % Neutrophils 80.6 % (42.2-75.2); Absolute Eosinophils 0.3 10^3/uL (0-0.7); Absolute Lymphocytes 0.4 10^3/uL (1.2-3.4); Absolute Monocytes 0.5 10^3/uL (0.1-0.6); Hematocrit 26.9 % (39.0-52.0); Mean Corp Hgb Conc. 33.5 g/dL (33.0-37.0); Mean Corpuscular Hgb 32.8 pg (27.0-31.0); Mean Corpuscular Volume 98.2 fL (80.0-94.0); Mean Platelet Volume 11.5 fL (7.4-10.4); Nucleated Red Blood Cells % 0 % (-); Platelet Count 106 10^3/uL (130-400); Red Blood Cell Count 2.74 10^6/uL (4.70-6.10); Red Cell Dist. Width 16.3 % (11.5-14.5); White Blood Cell Count 6.2 10^3/uL (4.8-10.8)
[2023-07-12 10:54] LABS: ALT (SGPT) 16 U/L (0-50); AST (SGOT) 20 U/L (17-59); Albumin 4.1 g/dl (3.5-5.0); Alkaline Phosphatase 83 U/L (38-126); Blood Urea Nitrogen 54 mg/dl (9-20); Calcium 9.8 mg/dl (8.4-10.2); Carbon Dioxide 26 mmol/L (22-30); Chloride 97 mmol/L (98-107); Estimated Creatinine Clearance 10 ml/min; Glucose 198 mg/dl (70-99); Lipase 42 U/L (23-300); Potassium 4.5 mmol/L (3.5-5.1); Sodium 138 mmol/L (135-145); Total Bilirubin 0.6 mg/dl (0.2-1.3); Total Protein 6.5 g/dl (6.3-8.2); eGFR 10.39
--- NOTE | 2023-07-12 11:00 | ED.GENMED ---
History of Present Illness
General
Chief Complaint: Abdominal Symptoms
Source: patient and spouse
Time Seen by Provider: 07/12/23 10:32
Travel History
Have you had any contact with someone who has COVID-19?: No
Do you have any symptoms of coronavirus? Fever > 100 degrees, chills, cough, shortness of breath, sore throat, loss of taste or smell, muscle aches, or headache?: No
History of Present Illness
History of Present Illness:
83-year-old male with extensive cardiopulmonary past medical history, chronic kidney disease on dialysis getting treatments on Wednesday and Wednesday presenting to the emergency department for evaluation of nausea vomiting diarrhea that began
suddenly earlier this morning at 2:30 AM. Patient notes that he was out celebrating his birthday yesterday evening at a [employer] buffet and also had a large steak dinner which is apical for him and this is why got sick. There are no
reported fevers, chills, rigors. Patient states pain at present is very minimal but he still has some nausea. Has not been on any antibiotics recently. No other concerns at this time.
Past History
Past History
ED Past Medical History: CAD, Cancer (Skin CA), CHF, COPD, GERD, HTN, Hypercholesterolemia, IDDM, ND, Renal failure (Wednesday, , and Wednesday. ) and Other (Chronic kidney disease, chronic liver disease. AAA, diverticulitis, Anemia, pancreatic
cyst, Left AV fistula, Myodysplastic syndrome)
ED Past Surgical History: Cardiac (CABG), Cholecystectomy, Orthopedic (Right shoulder replacement, ) and Other (Pancreatic cyst removal)
Social History
Tobacco: Former smoker
Alcohol: None
Drug: None
Personal:
Living: with family ([facility])
Employment: Retired
Family History
Family History: Diabetes and CAD
Review of Systems
Review of Systems
All Other Systems: ROS reviewed and negative except as documented in HPI and ROS
Phy Exam
Physical Exam
Physical Exam:
GENERAL: Alert , in no apparent distress but does appear uncomfortable
EYE: clear conjunctiva b/l
HEAD: NCAT
ENT: o/p clr, mmm.
CARDIAC: Regular rate and rhythm .
LUNGS: Clear breath sounds bilaterally, no acute respiratory distress, no wheezes/rales/rhonchi
ABDOMEN: Soft, without focal tenderness, no r/g, no cvat
NEUROLOGICAL: Alert and oriented
SKIN: Warm and dry, skin intact. Left upper extremity fistula with palpable thrill
MUSCULOSKELETAL: well perfused.
PSYCH: Normal and appropriate interaction.
Scores
Heart Failure Risk
Heart Failure Risk Score: Not Applicable
Heart Score for Chest Pain Patients
STEMI patient?: Not applicable
Withdrawal Assessment of Alcohol
Withdrawal Assessment Completed?: Not applicable
Course
Orders/Labs/Results
Orders:
Orders
07/12/23 10:27
Complete Blood Count/With Diff Urgent
Comprehensive Metabolic Panel Urgent
Lipase Urgent
07/12/23 11:13
0.9% Sodium Chloride 500 ml [Nss] 500 ml IV BOLUS
Ondansetron Injectable [Zofran] 4 mg .ROUTE .STK-MED ONE
Ondansetron Injectable [Zofran] 4 mg IV NOW STA
07/12/23 13:43
STOOL [C difficile Antigen & Toxins] Urgent
CORTEZ Source: Feces/Stool
Specimen Description:
Stool Culture Urgent
CORTEZ Source: Feces/Stool
Specimen Description:
Abnormal Lab Results
07/12/23
10:27
RBC 2.74 L 10^6/uL
(4.70-6.10)
Hgb 9.0 L g/dL
(13.0-18.0)
Hct 26.9 L %
(39.0-52.0)
MCV 98.2 H fL
(80.0-94.0)
MCH 32.8 H pg
(27.0-31.0)
RDW 16.3 H %
(11.5-14.5)
Plt Count 106 L 10^3/uL
(130-400)
MPV 11.5 H fL
(7.4-10.4)
Absolute Lymphs (auto) 0.4 L 10^3/uL
(1.2-3.4)
Neutrophils % 80.6 H %
(42.2-75.2)
Lymphocytes % 6.0 L %
(20.5-51.1)
Chloride 97 L mmol/L
(98-107)
BUN 54 H mg/dl
(9-20)
Creatinine 5.2 H* mg/dL
(0.7-1.3)
Glucose 198 H mg/dl
(70-99)
07/12/23 10:27
07/12/23 10:27
Vital Signs
Initial and Last Documented VS:
Initial Vital Signs
Temp Pulse Resp BP Pulse Ox
98.1 F 92 18 147/66 95
07/12/23 10:08 07/12/23 10:08 07/12/23 10:08 07/12/23 10:08 07/12/23 10:08
Last Documented Vital Signs
Temp Pulse Resp BP Pulse Ox
98.1 F 92 24 145/69 100
07/12/23 10:08 07/12/23 13:45 07/12/23 13:45 07/12/23 13:00 07/12/23 13:45
MDM/Problems Addressed
Differential Diagnosis Includes:
Dehydration, electrolyte disturbance, foodborne illness, gastroenteritis
MDM/Problems Addressed:
83-year-old male presenting emergency department for evaluation of what appears to be either foodborne illness or gastroenteritis. He appears hemodynamically stable and is denying any pain at this time but still has some nausea. Will treat with
fluids but will run this slowly given his known chronic kidney disease. Zofran ordered. Patient declining anything for pain. Reassessment following fluids and Zofran
Chronic conditions affecting care: Kidney disease
*Pulse Oximetry
Patient hypoxic: no
*Critical Care Note
Total Time (30-74mins, 75-104mins- exclusive of procedures): Not Applicable
Data Reviewed
Review of Other/Old Records Reveals: Labs
Source: patient and spouse
Patient Management
Discussion with other providers: Hospitalist
Escalation/DeEscalation of care consider admission/obs:
Patient had 2 voluminous episodes of diarrhea that he was unable to control while in the emergency department. He still maintains some mild abdominal discomfort and feels generally unwell. Given his age combined with his chronic medical conditions
I do not feel it would be safe to discharge the patient home. Will admit for continued supportive care and monitoring as well as IV fluids. Hospitalist team is aware and accepts for continued evaluation and treatment.
ED Attending Note
-
Portions of this chart may have been created with voice recognition software.� Occasional wrong word or��sound alike� substitutions may have occurred due to the inherent limitations of voice recognition software.
Discharge Plan
Departure
Patient Disposition: Admit
Date of Disposition: 07/12/23
Time of Disposition: 13:44
Presentation/result/management discussed w/ accepting MD/DO: Hospitalist
Discharge Problem:
Gastroenteritis, Dehydration
Prescriptions:
No Action
vitamin B complex 1 TAB tablet
1 tab PO DAILY
finasteride 5 MG tablet
5 mg PO DAILY
aspirin 81 MG tablet,delayed release (DR/EC)
81 mg PO QPM
coenzyme Q10 [Co Q-10] 100 MG capsule
100 mg PO BID
Aranesp (in polysorbate) 10 MCG/0.4 ML syringe
300 mcg IJ DAILYPRN PRN (Reason: low hb)
calcium acetate 667 MG tablet
667 mg PO MEALS
insulin aspart U-100 [Novolog FlexPen U-100 Insulin] 300 UNITS/3 ML insulin pen
0 units SC TIDPRN PRN (Reason: high blood sugar)
Rx Instructions:
>150= 2 units; >200= 4 units
rosuvastatin 10 MG tablet
10 mg PO QPM
furosemide 80 mg Tablet
80 mg PO SUMOWEFR
clopidogrel 75 mg tablet
75 mg PO DAILY
albuterol sulfate 90 mcg/actuation HFA aerosol inhaler
2 puff INHALATION R Q4HPRN PRN (Reason: sob/wheezing)
Anoro Ellipta 62.5-25 mcg/actuation blister with device
1 inh INHALATION R DAILY
pantoprazole [Protonix] 40 mg Tablet,Delayed Release (Dr/Ec)
40 mg PO DAILY
loratadine [Allerclear] 10 mg Tablet
10 mg PO DAILY
cholecalciferol (vitamin D3) [Vitamin D3] 25 mcg (1,000 unit) Capsule
25 mcg PO DAILY
acetaminophen [Tylenol Extra Strength] 500 MG tablet
500 mg PO TIDPRN PRN (Reason: mild pain)
metoprolol succinate 25 mg tablet extended release 24 hr
25 mg PO BID
megestrol 625 mg/5 mL (125 mg/mL) suspension
625 mg PO SUMOWEFR
Dialyvite [id number] ug-ig-ild-mg tablet
1 tab PO QPM
biotin 5,000 mcg Tablet,Chewable
5,000 mcg PO DAILY
Levemir U-100 Insulin 100 unit/mL solution
12 unit SC QPM
melatonin 5 mg Tablet
5 mg PO HS PRN (Reason: sleep)
isosorbide mononitrate 30 mg Tablet Extended Release 24 Hr
30 mg PO DAILY 30 Days Qty: 30 0RF
Referrals:
Vic Chappell MD [Family Provider] -
Interventions
Interventions:
*Risk Screen - Suicide Last Done: 07/12/23 10:08
*General Assessment Last Done: 07/12/23 10:08
*Neglect/Abuse Screening Last Done: 07/12/23 10:08
ED- Fall Risk Assessment Last Done: 07/12/23 10:25
*ED COVID-19 Vaccine History Last Done: 07/12/23 10:08
QS-[id number]-Mqrlmsepxl Assessment Last Done: 07/12/23 10:25
Discharge Date and Time
Print Language: ALBANIAN
[2023-07-12] MEDS: ZOFRAN 4 MG IV (11:14)
[2023-07-12] MEDS: NSS 500 IV (11:14)
--- NOTE | 2023-07-12 14:00 | HPS.HSE ---
Addendum entered and electronically signed by Junior Villarreal MD 07/12/23 16:19:
Pt ate at [employer] yesterday afternoon with onset of abd cramping later and repeated diarrhea episodes starting ~2:30 AM
Known hx of ESRD
Pt seen independently and agree with DIRECTOR COMPENSATION note
Lungs clear
CV reg
Abd soft, active BS
Imp:probable enteric pathogen gastroenteritis
ESRD
Myelodysplastic syndrome with chronic anemia
P:cautious IVF in pt with ESRD
empiric IV abx
stool sample
Full code
Original Note:
Family Physician
-
Family Physician: Vic Chappell
Chief Complaint
-
Nausea, vomiting, diarrhea
History of Present Illness
83-year-old male complaining of nausea, vomiting x 1 episode, diarrhea approximately 10 episodes that began suddenly early this morning at 2:30 AM. He reports he was out yesterday evening with his and son at an [employer] and also
had a large steak dinner which is atypical for him and then he became sick. He reports his and son did not get sick. He reports some mild nausea with some abdominal cramping prior to diarrhea. Currently denies any recent antibiotics, fever,
chills, chest pain, palpitations, shortness of breath, cough, abdominal pain, urinary symptoms. He has past medical history of end-stage renal disease with dialysis Wednesday and Wednesday, left arm AV fistula, myelodysplastic syndrome, HTN,
HLD, chronic CHF reduced EF, CAD/CABG, COPD, DM2, AAA, diverticulitis.
Medical History
Past Medical History
Past Medical History: Reports Other
Additional Past Medical History:
End-stage renal disease with dialysis Wednesday and Wednesday,
left arm AV fistula
myelodysplastic syndrome
Chronic anemia/thrombocytopenia
HTN
HLD
chronic CHF reduced EF
CAD/CABG
COPD
DM2
AAA
diverticulitis
Insomnia
BPH
Chronic protein malnutrition
Hx constipation
Past Surgical History: Reports Other
Additional Past Surgical History:
Cardiac (CABG), Cholecystectomy, Orthopedic (Right shoulder replacement, ) and Other (Pancreatic cyst removal)
Social History
Tobacco: Former Smoker
Alcohol: Former
Drug: None
Personal: ( Danisha)
Living: With Family ( [facility] independent)
Employment: Retired
Family History
Family History: CAD (In mother and father )
Allergies / Home Medications
Allergies reflects when Allergies were last updated in [employer].
Home Medications with original date entered in [employer]
Allergy/Medication List:
Allergies
Allergy/AdvReac Type Severity Reaction Status Date / Time
adhesive Allergy Unknown Verified 07/12/23 10:07
baclofen Allergy confusion, Verified 07/12/23 10:07
extrapyramidal
symptoms
metoclopramide [From Reglan] Allergy Unknown Verified 07/12/23 10:07
Home Medications
vitamin B complex 1 tab PO DAILY Supplement 10/08/17
aspirin 81 mg tablet,delayed release 81 mg PO QPM Blood clot prevention/tx 01/11/19
coenzyme Q10 100 mg capsule (Co Q-10) 100 mg PO BID Heart disease/condition 01/11/19
darbepoetin дмитрий in polysorbat 10 mcg/0.4 mL in polysorbate injection syringe (Aranesp) 300 mcg IJ Q1HPRN PRN low hb 01/11/19
finasteride 5 mg tablet 5 mg PO DAILY Urinary issue 01/11/19
calcium acetate 667 mg tablet 667 mg PO MEALS High phosphorous 09/15/19
insulin aspart U-100 100 unit/mL (3 mL) subcutaneous pen (Novolog FlexPen U-100 Insulin aspart) 0 units SC TIDPRN PRN high blood sugar 09/15/19
rosuvastatin 10 mg tablet 10 mg PO QPM High cholesterol 09/15/19
furosemide 80 mg tablet 80 mg PO SUMOWEFR Fluid retention/Swelling 02/16/22
albuterol sulfate 90 mcg/actuation aerosol inhaler 2 puff inhalation R Q4HPRN PRN sob/wheezing 06/07/22
clopidogrel 75 mg tablet 75 mg PO DAILY Blood clot prevention/tx 06/07/22
umeclidinium 62.5 mcg-vilanterol 25 mcg/actuation powdr for inhalation (Anoro Ellipta) 1 inh inhalation R DAILY Lung/breathing issues 06/07/22
acetaminophen 500 mg tablet (Tylenol Extra Strength) 500 mg PO TIDPRN PRN mild pain 10/06/22
cholecalciferol (vitamin D3) 25 mcg (1,000 unit) capsule (Vitamin D3) 25 mcg PO DAILY Supplement 10/06/22
loratadine 10 mg tablet (Allerclear) 10 mg PO DAILY Allergies 10/06/22
metoprolol succinate 25 mg tablet,extended release 24 hr 25 mg PO BID Heart Failure 10/06/22
pantoprazole 40 mg tablet,delayed release (Protonix) 40 mg PO DAILY Gastrointestinal Issue 10/06/22
B complex 11-folic acid 1 mg-C 100 mg-biotin 300 mcg-zinc 50 mg tablet (Dialyvite) 1 tab PO QPM Supplement 05/04/23
biotin 5,000 mcg chewable tablet 5,000 mcg PO DAILY Supplement 05/04/23
insulin detemir U-100 100 unit/mL subcutaneous solution (Levemir U-100 Insulin) 12 unit SC QPM Diabetes 05/04/23
megestrol 625 mg/5 mL (125 mg/mL) oral suspension 625 mg PO SUMOWEFR Appitite 05/04/23
melatonin 5 mg tablet 5 mg PO HS PRN sleep 05/14/23
isosorbide mononitrate 30 mg tablet,extended release 24 hr 30 mg PO DAILY 30 days #30 tabs 05/15/23
Review of Systems
-
History Source: Patient
A 12 point ROS was completed and negative except as noted: Yes
Constitutional: Denies Fever or Chills
EENT: Denies Sore Throat or Runny Nose
Respiratory: Denies Cough or Trouble Breathing
Cardiac: Denies Chest Pain, Diaphoresis, Palpitations or Syncope
Abdomen/GI: Reports Abdominal Pain (Cramps with diarrhea), Nausea, Vomiting and Diarrhea (Watery unclear of color as he did not look)
: Denies Dysuria, Frequency, Flank Pain, Incontinence, Difficulty Voiding or Urgency
Musculoskeletal: Denies Joint Pain or Edema
Skin: Denies Itching or Rash
Neurological: Reports Weakness (Generalized); Denies Dizzy or Headache
Endocrine: Reports No Symptoms
Hematologic/Lymphatic: Reports No Symptoms
Psych: Reports Calm
Physical Exam
Vital Signs
Vital Signs
Temp Pulse Resp BP Pulse Ox
98.1 F 92 24 145/69 100
07/12/23 10:08 07/12/23 13:45 07/12/23 13:45 07/12/23 13:00 07/12/23 13:45
Physical Exam
General: Comfortable and Conversant; No Pain, Fever or Chills
HEENT: NormoCephalic, Anicteric, PERRLA, [place] Conjunctivae and Other (Dry oral mucosa)
Respiratory: Clear; No Wheezes, Rales or Rhonchi
Cardiac: S1/S2 and Regular Rhythm; No Murmur, Rub, Gallop or Peripheral Edema
Breast: Deferred by me
GI: Soft, Non Tender, Non Distended, Normal Bowel Sounds and No Hepatosplenomegaly
Rectal: Deferred by Provider
Genito-urinary: Deferred by me
Musculoskeletal: No Clubbing, No Cyanosis and No Edema
Skin: Warm, Dry and IV/Catheter Site (Left upper arm AV fistula present with positive thrill); No Rash or Jaundice
Neuro: AO x 3, No Motor Deficits, Nonfocal/grossly intact and No Sensory Deficits; No Slurred Speech, Facial Droop or Tremors
Psych: Calm
Laboratory Results
-
07/12/23 10:
07/12/23 10:
Laboratory Results
Total Bilirubin 0.6 mg/dl (0.2-1.3) 07/12/23 10:
AST 20 U/L (17-59) 07/12/23 10:
ALT 16 U/L (0-50) 07/12/23 10:
Alkaline Phosphatase 83 U/L (38-126) 07/12/23 10:
Lipase 42 U/L (23-300) 07/12/23 10:
Data Reviewed
-
Lab Data: Labs Reviewed by me
Impression/Plan
-
Impression/plan:
Admit to MedSurg
#Acute gastroenteritis likely foodborne 2/2 seafood
Nausea, vomiting, diarrhea post seafood buffet
-Check stool cultures, C. difficile,stool wbc
-IV NSS 1 L given in ER then iv NSS 60 cc/hr ( Bp 143/69-no signs of hypotension in light of hx of chf esrd will be cautious with further fluids )
-empric abx Iv rocephin, flagyl
- consult GI
-IV Zofran as needed
-Consult PT/OT/case management
#ESRD on dialysis Wednesday, , Wednesday
Creat 5.2
-Continue calcium acetate with meals when tolerated
-Consult Nephrology
-Follow BMP
#Myelodysplastic syndrome
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
#Chronic thrombocytopenia
Hgb 9 appears better than baseline,PLT 106
-Continue Aranesp 300 mcg injection every 2 weeks if Hgb <12(last injection 07/09/2023)
-Follow CBC
#DM2
-Accu-Cheks with SSI, check HgbA1c
-Hold Levemir 12 units every afternoon due to current gastroenteritis
#COPD�no acute exacerbation
-Continue inhalers
#GERD
-Continue Pepcid, Protonix
#CAD S/P CABG 2018
#NSTEMI Hx
-Continue aspirin 81 mg daily, Plavix 75 mg, statin, Imdur 30 mg daily
-Continue metoprolol succinate 25 mg twice daily
#Hx paroxysmal SVT
-Continue Toprol
#Chronic heart failure reduced EF
-I/O, daily weights
-Hold current Lasix due to gastroenteritis
-Continue metoprolol succinate 25 mg twice daily
2D echo 05/14/2023: EF 35-40%, moderately reduced LVSF, global hypokinesis more pronounced hypokinesis of the basal to apical inferior/inferolateral
segments.
Mild aortic stenosis, mild reduced RVSF
Moderate TR.
Moderate elevated PASP 45-50 mmHg
#BPH
#Chronic dysuria
-Continue finasteride
#Hx constipation
-Hold stool softeners due to current diarrhea
#Hx chronic decreased appetite/protein malnutrition�BMI 24.1 kg
-Continue megestrol 625 mg Wednesday
#Insomnia
-Continue melatonin 5 mg at bedtime as needed
#Chronic ambulatory dysfunction
Attempts to use cane or walker at baseline uses electric wheelchair with distance
DVT prophylaxis
Subcu heparin
Full code
--- NOTE | 2023-07-12 15:13 | W.CON.NEPH ---
Consultation
-
Date/Time Consultation Requested: July 12, 2023 2 PM
Date/Time Consultation Performed: July 12, 2023 3 PM
Requesting Provider: Dr. Villarreal
Performing Provider: Dr. Messer
Reason for Consultation: ESRD
Medical History
-
Chief Complaint: ESRD
History of Present Illness:
82 yo male with PMH of CAD s/p CABG 2019; also ICM EF 35-40%, ESRD on HD on Wednesday dialysis at [facility], hyperphosphatemia on calcium acetate, MDS with chronic anemia and thrombocytopenia who receives Aranesp, DM2 on
insulin. He celebrated his birthday yesterday by going to an [employer]. Shortly thereafter he he developed significant GI distress with abdominal cramping and diarrhea. There is mild nausea. Given the severity of his GI distress he came to
the emergency room. We are asked to assist in management of his ESRD.
Past Medical History
1. ESRD.
2. Left upper extremity AV fistula.
3. MDS.
4. Coronary artery disease with bypass grafting.
5. Diabetes mellitus, type 2.
6. 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
7. BPH.
8. Hypertension.
9. Hyperlipidemia.
10.AAA.
11.COPD.
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
13.Cholecystectomy
14.Pancreatic cyst removal
Social History
Tobacco: Former Smoker
Alcohol: None
Family History
no CKD
Allergies / Home Medications
Allergy/AdvReac Type Severity Reaction Status Date / Time
adhesive Allergy Unknown Verified 07/12/23 10:07
baclofen Allergy confusion, Verified 07/12/23 10:07
extrapyramidal
symptoms
metoclopramide [From Reglan] Allergy Unknown Verified 07/12/23 10:07
�Medication �Instructions �Recorded �Confirmed �Type
vitamin B complex 1 tab PO DAILY Supplement 10/08/17 07/12/23 History
aspirin 81 mg tablet,delayed 81 mg PO QPM Blood clot 01/11/19 07/12/23 History
release prevention/tx
coenzyme Q10 100 mg capsule (Co 100 mg PO BID Heart 01/11/19 07/12/23 History
Q-10) disease/condition
darbepoetin дмитрий in polysorbat 10 300 mcg IJ Q1HPRN PRN low 01/11/19 07/12/23 History
mcg/0.4 mL in polysorbate hemoglobin
injection syringe (Aranesp)
finasteride 5 mg tablet 5 mg PO DAILY Urinary issue 01/11/19 07/12/23 History
calcium acetate 667 mg tablet 667 mg PO MEALS High phosphorous 09/15/19 07/12/23 History
insulin aspart U-100 100 unit/mL 0 units SC TIDPRN PRN high blood 09/15/19 07/12/23 History
(3 mL) subcutaneous pen (Novolog sugar
FlexPen U-100 Insulin aspart)
rosuvastatin 10 mg tablet 10 mg PO QPM High cholesterol 09/15/19 07/12/23 History
furosemide 80 mg tablet 80 mg PO SUMOWEFR Fluid 02/16/22 07/12/23 History
retention/Swelling
albuterol sulfate 90 mcg/actuation 2 puff inhalation R Q4HPRN PRN 06/07/22 07/12/23 History
aerosol inhaler sob/wheezing
clopidogrel 75 mg tablet 75 mg PO DAILY Blood clot 06/07/22 07/12/23 History
prevention/tx
umeclidinium 62.5 mcg-vilanterol 1 inh inhalation R DAILY 06/07/22 07/12/23 History
25 mcg/actuation powdr for Lung/breathing issues
inhalation (Anoro Ellipta)
acetaminophen 500 mg tablet 500 mg PO TIDPRN PRN mild pain 10/06/22 07/12/23 History
(Tylenol Extra Strength)
cholecalciferol (vitamin D3) 25 25 mcg PO DAILY Supplement 10/06/22 07/12/23 History
mcg (1,000 unit) capsule (Vitamin
D3)
loratadine 10 mg tablet 10 mg PO DAILY Allergies 10/06/22 07/12/23 History
(Allerclear)
metoprolol succinate 25 mg 25 mg PO BID Heart Failure 10/06/22 07/12/23 History
tablet,extended release 24 hr
pantoprazole 40 mg tablet,delayed 40 mg PO DAILY Gastrointestinal 10/06/22 07/12/23 History
release (Protonix) Issue
B complex 11-folic acid 1 mg-C 100 1 tab PO QPM Supplement 05/04/23 07/12/23 History
mg-biotin 300 mcg-zinc 50 mg
tablet (Dialyvite)
biotin 5,000 mcg chewable tablet 5,000 mcg PO DAILY Supplement 05/04/23 07/12/23 History
insulin detemir U-100 100 unit/mL 12 unit SC QPM Diabetes 05/04/23 07/12/23 History
subcutaneous solution (Levemir
U-100 Insulin)
megestrol 625 mg/5 mL (125 mg/mL) 625 mg PO SUMOWEFR Appitite 05/04/23 07/12/23 History
oral suspension
melatonin 5 mg tablet 5 mg PO HS PRN sleep 05/14/23 07/12/23 History
isosorbide mononitrate 30 mg 30 mg PO DAILY Heart 07/12/23 07/12/23 History
tablet,extended release 24 hr Disease/Condition
Review of Systems
-
Abdominal cramping, diarrhea, nausea
All other systems: Negative unless noted
Physical Exam
Vital Signs
Vital Signs
Temp Pulse Resp BP Pulse Ox
98.1 F 89 27 143/69 100
07/12/23 10:08 07/12/23 14:45 07/12/23 14:45 07/12/23 14:00 07/12/23 14:45
Lab Results
WBC 6.2 10^3/uL (4.8-10.8) 07/12/23 10:
RBC 2.74 10^6/uL (4.70-6.10) L 07/12/23 10:27
Hgb 9.0 g/dL (13.0-18.0) L 07/12/23 10:
Hct 26.9 % (39.0-52.0) L 07/12/23 10:
Plt Count 106 10^3/uL (130-400) L 07/12/23 10:
Sodium 138 mmol/L (135-145) 07/12/23 10:
Potassium 4.5 mmol/L (3.5-5.1) 07/12/23 10:
Chloride 97 mmol/L (98-107) L 07/12/23 10:
Carbon Dioxide 26 mmol/L (22-30) 07/12/23 10:
BUN 54 mg/dl (9-20) H 07/12/23 10:
Creatinine 5.2 mg/dL (0.7-1.3) H* 07/12/23 10:
eGFR 10.39 07/12/23 10:
Glucose 198 mg/dl (70-99) H 07/12/23 10:
Calcium 9.8 mg/dl (8.4-10.2) 07/12/23 10:
Albumin 4.1 g/dl (3.5-5.0) 07/12/23 10:
Physical Exam
Patient is awake alert oriented and in no distress. Mood and affect were pleasant, insight and judgment were good. Pupils are equal round and reactive to light, extraocular movements are intact, sclera were anicteric. Hearing was normal, ears and
nose are intact. Oropharynx was clear. Neck was supple with trachea midline and no thyromegaly. Heart was regular rate and rhythm without rubs. Lower extremities without edema. Lungs were clear to auscultation bilaterally and with normal
excursion. Abdomen was soft, nontender, with normal active bowel sounds, and no hepatosplenomegaly. Skin was without rash and with normal turgor. Left upper extremity AV fistula was with good thrill and bruit
Data Reviewed
-
Labs: Labs Reviewed by me (WBC 6.2, hemoglobin 9.0, plates 106, sodium 138, potassium 4.5, carbon dioxide 26, BUN 54, creatinine 5.2)
Assessment/Plan
-
Impression:
ESRD on hemodialysis on Wednesday, , Wednesday
Left UE AVF
chronic macrocytic anemia MDS
Diarrhea
CAD
Chronic HFrEF EF 35-40%
COPD
Type 2 diabetes
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
BPH
GERD
Plan:
Dialysis tomorrow per usual schedule
Okay for light additional IV fluids today
GI evaluation
Stool studies
[2023-07-12] MEDS: ROCEPHIN 1000 MG IV (15:26)
[2023-07-12] MEDS: STERILE WATER FOR INJECTION 10 ML IV (15:26)
[2023-07-12] MEDS: FLAGYL 500 MG 100 IV (15:32)
[2023-07-12 15:44] LABS: Magnesium 2.4 mg/dl (1.6-2.3); Phosphorus 3.1 mg/dl (2.5-4.5)
[2023-07-12] MEDS: CRESTOR 10 MG PO (18:46)
[2023-07-12] MEDS: PHOSLO 667 MG PO (18:46)
[2023-07-12] MEDS: B COMPLEX w/VITAMIN C 1 CAPLET PO (18:46)
[2023-07-12] MEDS: NSS 1000 IV (18:46)
[2023-07-12] MEDS: ASPIR LOW (ENTERIC COATED) 81 MG PO (18:46)
[2023-07-12] MEDS: MEGACE ORAL SUSPENSION 625 MG PO (20:55)
[2023-07-12] MEDS: TOPROL XL 25 MG PO (20:55)
[2023-07-12] MEDS: HEPARIN 5000 UNITS SC (20:55)
[2023-07-13] MEDS: FLAGYL 500 MG 100 IV ×2 (00:10→11:09)
[2023-07-13] MEDS: MELATONIN 5 MG PO (01:49)
[2023-07-13 04:57] LABS: Glucose - Point of Care 149 mg/dl (70-99)
[2023-07-13 06:00] VITALS: BMI 24.0
[2023-07-13 07:00] VITALS: BP 129/60
[2023-07-13] MEDS: STRIVERDI RESPIMAT 2 PUFF INH (08:06)
[2023-07-13] MEDS: SPIRIVA RESPIMAT 2.5 MCG 2 PUFF INH (08:06)
--- NOTE | 2023-07-13 08:25 | CON.GI ---
Consultation
-
Date/Time Consultation Requested: 07/12/23 1500
Date/Time Consultation Performed: 07/13/23 0830
Requesting Provider: ELI Daily
Performing Provider: ELI Crespo, Vianca Brown MD
Reason for Consultation: colitis
Medical History
Chief Complaint / HPI
Chief Complaint: diarrhea
History of Present Illness:
Pt is a 83yo with hx CAD, COPD, IDDM, ESRD on HD, anemia, MDS, panc cyst with removal, diverticulitis, anemia, prior wil with onset of nausea, vomiting and diarrhea after eating at seafood buffet. On admission noted with hbg 8.2 around
baseline with MCV 100.8, platelets 90,000, and chronic elevated BUN/creat with hx ESRD.
Pt states no symptoms prior to buffet with severe onset of nausea with small amount of emesis then diarrrhea. He is now fatigue but less stools and feeling better. He denies dysphagia, GERD, current nausea/vomiting, abdominal pain, blood
or black in stools. Last colonoscopy 2009 with diverticulosis.
Past Medical History
Past Medical History: CAD, Cancer (skin CA), CHF, COPD, GERD, HTN, Hypercholesterolemia, IDDM, CA, Renal Failure (on HD) and Other ( AAA, diverticulitis, Anemia, pancreatic cyst, Left AV fistula, Myodysplastic syndrome, diverticulosis ( chronic
liver disease listed on chart but normal liver on CT with normal albumin, INR, platelet low with MDS) )
Past Surgical History: Cardiac (CABG), Cholecystectomy, Orthopedic (shoulder surgery) and Other (panc cyst removal)
Social History
Tobacco: Non-Smoker
Alcohol: None
Drug: None
Personal:
Living: With Family
Employment: Retired
Family History
Family History: Other (no family hx GI issues )
Allergies / Home Medications
Allergy/AdvReac Type Severity Reaction Status Date / Time
adhesive Allergy Unknown Verified 07/12/23 10:07
baclofen Allergy confusion, Verified 07/12/23 10:07
extrapyramidal
symptoms
metoclopramide [From Reglan] Allergy Unknown Verified 07/12/23 10:07
�Medication �Instructions �Recorded
vitamin B complex 1 tab PO DAILY Supplement 10/08/17
aspirin 81 mg tablet,delayed 81 mg PO QPM Blood clot 01/11/19
release prevention/tx
coenzyme Q10 100 mg capsule (Co 100 mg PO BID Heart 01/11/19
Q-10) disease/condition
darbepoetin дмитрий in polysorbat 10 300 mcg IJ Q1HPRN PRN low 01/11/19
mcg/0.4 mL in polysorbate hemoglobin
injection syringe (Aranesp)
finasteride 5 mg tablet 5 mg PO DAILY Urinary issue 01/11/19
calcium acetate 667 mg tablet 667 mg PO MEALS High phosphorous 09/15/19
insulin aspart U-100 100 unit/mL 0 units SC TIDPRN PRN high blood 09/15/19
(3 mL) subcutaneous pen (Novolog sugar
FlexPen U-100 Insulin aspart)
rosuvastatin 10 mg tablet 10 mg PO QPM High cholesterol 09/15/19
furosemide 80 mg tablet 80 mg PO SUMOWEFR Fluid 02/16/22
retention/Swelling
albuterol sulfate 90 mcg/actuation 2 puff inhalation R Q4HPRN PRN 06/07/22
aerosol inhaler sob/wheezing
clopidogrel 75 mg tablet 75 mg PO DAILY Blood clot 06/07/22
prevention/tx
umeclidinium 62.5 mcg-vilanterol 1 inh inhalation R DAILY 06/07/22
25 mcg/actuation powdr for Lung/breathing issues
inhalation (Anoro Ellipta)
acetaminophen 500 mg tablet 500 mg PO TIDPRN PRN mild pain 10/06/22
(Tylenol Extra Strength)
cholecalciferol (vitamin D3) 25 25 mcg PO DAILY Supplement 10/06/22
mcg (1,000 unit) capsule (Vitamin
D3)
loratadine 10 mg tablet 10 mg PO DAILY Allergies 10/06/22
(Allerclear)
metoprolol succinate 25 mg 25 mg PO BID Heart Failure 10/06/22
tablet,extended release 24 hr
pantoprazole 40 mg tablet,delayed 40 mg PO DAILY Gastrointestinal 10/06/22
release (Protonix) Issue
B complex 11-folic acid 1 mg-C 100 1 tab PO QPM Supplement 05/04/23
mg-biotin 300 mcg-zinc 50 mg
tablet (Dialyvite)
biotin 5,000 mcg chewable tablet 5,000 mcg PO DAILY Supplement 05/04/23
insulin detemir U-100 100 unit/mL 12 unit SC HS Diabetes 05/04/23
subcutaneous solution (Levemir
U-100 Insulin)
megestrol 625 mg/5 mL (125 mg/mL) 625 mg PO SUMOWEFR Appitite 05/04/23
oral suspension
melatonin 5 mg tablet 5 mg PO HS PRN sleep 05/14/23
isosorbide mononitrate 30 mg 30 mg PO DAILY Heart 07/12/23
tablet,extended release 24 hr Disease/Condition
Review of Systems
-
History Source: Patient
Constitutional: Reports No Symptoms
EENT: Reports No Symptoms
Respiratory: Reports No Symptoms
Cardiac: Reports No Symptoms
Abdomen/GI: Reports Nausea, Vomiting and Diarrhea
: Reports Other (decreased urination with HD)
Musculoskeletal: Reports No Symptoms
Skin: Reports No Symptoms
Neurological: Reports Weakness
Endocrine: Reports No Symptoms
Hematologic/Lymphatic: Reports No Symptoms
Vital Signs
Temp Pulse Resp BP Pulse Ox
97.6 F 82 16 129/60 98
07/13/23 07:00 07/13/23 08:15 07/13/23 08:15 07/13/23 07:00 07/13/23 08:15
Physical Exam
Exam
General: Other (sleeping but arousable )
HEENT: Normocephalic and Anicteric
Respiratory: Clear
Cardiac: Regular Rhythm
GI: Soft, Non Tender and Non Distended
Musculoskeletal: No Clubbing and No Cyanosis
Skin: Warm and Dry
Neuro: Awake (awakens to voice ) and AO x 3
Psych: Calm
Results
WBC 6.2 10^3/uL (4.8-10.8) 07/12/23 10:
Hgb 9.0 g/dL (13.0-18.0) L 07/12/23 10:
Hct 26.9 % (39.0-52.0) L 07/12/23 10:
MCV 98.2 fL (80.0-94.0) H 07/12/23 10:
Plt Count 106 10^3/uL (130-400) L 07/12/23 10:
Absolute Neuts (auto) 5.0 10^3/uL (1.4-6.5) 07/12/23 10:
Sodium 138 mmol/L (135-145) 07/12/23 10:
Potassium 4.5 mmol/L (3.5-5.1) 07/12/23 10:
Chloride 97 mmol/L (98-107) L 07/12/23 10:
Carbon Dioxide 26 mmol/L (22-30) 07/12/23 10:
BUN 54 mg/dl (9-20) H 07/12/23 10:
Creatinine 5.2 mg/dL (0.7-1.3) H* 07/12/23 10:
Calcium 9.8 mg/dl (8.4-10.2) 07/12/23 10:
Total Bilirubin 0.6 mg/dl (0.2-1.3) 07/12/23 10:
AST 20 U/L (17-59) 07/12/23 10:
ALT 16 U/L (0-50) 07/12/23 10:27
Alkaline Phosphatase 83 U/L (38-126) 07/12/23 10:27
Lipase 42 U/L (23-300) 07/12/23 10:27
Diagnostic Image Results:
Prior GI Procedures:
EGD: 2011 - Normal esophagus.
- Normal stomach.
- Normal examined duodenum.
- No evidence of pathology. Spasm must be considered.
Colonoscopy: 2009
- Diverticulosis sigmoid colon, descending colon and
transverse colon.
- The examination was otherwise normal.
Assessment / Plan
-
Pt is a 83yo with hx CAD, COPD, IDDM, ESRD on HD, anemia, MDS, panc cyst with removal, diverticulitis, anemia, prior wil with onset of nausea, vomiting and diarrhea after eating at seafood buffet. On admission noted with hbg 8.2 around
baseline with MCV 100.8, platelets 90,000, and chronic elevated BUN/creat with hx ESRD.
-nausea/vomiting/diarrhea after eating at buffet
-ESRD on HD
-IDDM
-hx MDS iwth low platelets, anemia
other med problems:
-CAD
-hx panc cyst
-COPD
PLAN:
etiology of acute onset of N/V/diarrhea after buffet related to infectious etiology, norovirus, vs other
c-diff neg, stool cx pending, add norovirus
pt already feeling better tolerating clear diet
advance to ADA, renal diet with low lactuose
monitor for recurrent diarrhea
trend CBC but anemia multi factorial with MDS and ESRD- close to baseline
reviewed with nursing
-
-
Thank you for consultation and allowing me to participate in the patient's care. Please call the [facility] physician during the after hours with any questions or concerns.
[2023-07-13 08:26] LABS: % Basophils 0.8 % (0-2); % Eosinophils 5.5 % (0-6); % Immature Granulocytes 0.3 % (0-0.5); % Lymphocytes 5.5 % (20.5-51.1); % Monocytes 7.4 % (1.7-9.3); % Neutrophils 80.5 % (42.2-75.2); Absolute Basophils 0.1 10^3/uL (0-0.2); Absolute Eosinophils 0.4 10^3/uL (0-0.7); Absolute Lymphocytes 0.4 10^3/uL (1.2-3.4); Absolute Monocytes 0.5 10^3/uL (0.1-0.6); Absolute Neutrophils 5.2 10^3/uL (1.4-6.5); Hematocrit 25.6 % (39.0-52.0); Hemoglobin 8.2 g/dL (13.0-18.0); Mean Corpuscular Hgb 32.3 pg (27.0-31.0); Mean Corpuscular Volume 100.8 fL (80.0-94.0); Mean Platelet Volume 11.7 fL (7.4-10.4); Nucleated Red Blood Cells % 0 % (-); Platelet Count 90 10^3/uL (130-400); Red Blood Cell Count 2.54 10^6/uL (4.70-6.10); Red Cell Dist. Width 16.4 % (11.5-14.5); White Blood Cell Count 6.5 10^3/uL (4.8-10.8)
[2023-07-13 09:05] LABS: ALT (SGPT) 12 U/L (0-50); AST (SGOT) 17 U/L (17-59); Albumin 3.4 g/dl (3.5-5.0); Alkaline Phosphatase 63 U/L (38-126); Blood Urea Nitrogen 58 mg/dl (9-20); Calcium 9.6 mg/dl (8.4-10.2); Carbon Dioxide 20 mmol/L (22-30); Chloride 102 mmol/L (98-107); Estimated Creatinine Clearance 8 ml/min; Glucose 167 mg/dl (70-99); Potassium 4.9 mmol/L (3.5-5.1); Sodium 137 mmol/L (135-145); Total Bilirubin 0.6 mg/dl (0.2-1.3); Total Protein 5.7 g/dl (6.3-8.2); eGFR 8.25
[2023-07-13] MEDS: IMDUR (EXTENDED RELEASE) 30 MG PO (11:08)
[2023-07-13] MEDS: PROTONIX 40 MG PO (11:08)
[2023-07-13] MEDS: CLARITIN 10 MG PO (11:09)
[2023-07-13] MEDS: PLAVIX 75 MG PO (11:09)
[2023-07-13] MEDS: PHOSLO PO (11:10)
[2023-07-13] MEDS: HEPARIN SC (11:10)
[2023-07-13] MEDS: VITAMIN D3 (cholecalciferol) 25 MCG PO (11:10)
[2023-07-13] MEDS: PROSCAR 5 MG PO (11:11)
[2023-07-13] MEDS: TOPROL XL 25 MG PO (11:11)
[2023-07-13] MEDS: PHOSLO 667 MG PO (11:16)
[2023-07-13 11:34] LABS: Glucose - Point of Care 100 mg/dl (70-99)
--- NOTE | 2023-07-13 11:34 | W.PN.NEPH.HD ---
Assessment
-
feeling well on HD
no complaints
decreasued UF goal due to diarrhea
Progress Note - Hemodialysis
-
Date of Service: July 13, 2023
Duration: 30 minutes and 3 hours
Potassium Bath: 3
Calcium Bath: 2.5
Opti-Dialyzer: 160
Blood Flow: 400
Dialysate Flow: 600
--- NOTE | 2023-07-13 12:55 | WOUNDNOTE ---
WON RN note: Patient admitted with gastroenteritis, dehydration.
See H&P for complete history. Lives with at [facility].
PMH: IDDM,AAA,CHF,CAD,HTN,OK, RF dialysis T-TH-Sat and diverticulosis.
Wound Location and type/assessment: Patient admitted with: stage 2 PI on L buttock vs open wound from MASD due to frequent stooling. Patient states he thinks he got food poisoning. Wound is very close to rectum therefore difficult to apply any sort
of dressing, Calazime barrier cream in use. states she has Desitin at home. Heels intact.
Appetite: states it is Fair at home, encouraged to eat protein in diet for wound healing.
Pressure redistribution devices in place: On Accumax, turns self. Gave air chair cushion and told to use when sitting, aware can take home upon discharge. Also to shift position frequently when sitting.
Plan: Barrier cream to buttocks and perianal area twice a day and after BM.
Updated nurse Kassy, will update care plan and sign off unless needed.
Note to case management of equipment requested for discharge:None.
[2023-07-13 13:51] VITALS: BP 105/50; BP 115/53; PULSE 87
[2023-07-13 13:54] VITALS: BP 105/50; BP 115/53; PULSE 86; PULSE 88; O2SAT 77
--- NOTE | 2023-07-13 14:25 | PTCARENOTE ---
Attempted to wean patient off of oxygen per provider's request. A few minutes after d/c'ing the oxygen, patient satting 77% on RA at rest. 2LNC reapplied and patient's sat improved to 90's. notified.
[2023-07-13 15:00] VITALS: BP 109/49
--- NOTE | 2023-07-13 15:23 | W.PN.HOSP.TC ---
Today's Communication/Plan
-
dc now
Assessment / Plan
Assessment / Plan
#Acute gastroenteritis likely foodborne 2/2 seafood
Nausea, vomiting, diarrhea post seafood buffet
-All negative to date stool cultures, C. difficile,stool wbc
- consult GI
-IV Zofran as needed
-Consult PT/OT/case management
#ESRD on dialysis Wednesday, , Wednesday
Creat 5.2
-Continue calcium acetate with meals when tolerated
-Consult Nephrology
-Follow BMP
#Myelodysplastic syndrome
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
#Chronic thrombocytopenia
Hgb 9 appears better than baseline,PLT 106
-Continue Aranesp 300 mcg injection every 2 weeks if Hgb <12(last injection 07/09/2023)
-Follow CBC
#DM2
-Accu-Cheks with SSI, check HgbA1c
-resume preadmit diabetic medication
#COPD�no acute exacerbation
-Continue inhalers
#GERD
-Continue Pepcid, Protonix
#CAD S/P CABG 2018
#NSTEMI Hx
-Continue aspirin 81 mg daily, Plavix 75 mg, statin, Imdur 30 mg daily
-Continue metoprolol succinate 25 mg twice daily
#Hx paroxysmal SVT
-Continue Toprol
#Chronic heart failure reduced EF
-I/O, daily weights
-Hold current Lasix due to gastroenteritis
-Continue metoprolol succinate 25 mg twice daily
2D echo 05/14/2023: EF 35-40%, moderately reduced LVSF, global hypokinesis more pronounced hypokinesis of the basal to apical inferior/inferolateral
segments.
Mild aortic stenosis, mild reduced RVSF
Moderate TR.
Moderate elevated PASP 45-50 mmHg
#BPH
#Chronic dysuria
-Continue finasteride
#Hx constipation
-Hold stool softeners due to current diarrhea
#Hx chronic decreased appetite/protein malnutrition�BMI 24.1 kg
-Continue megestrol 625 mg Wednesday
#Insomnia
-Continue melatonin 5 mg at bedtime as needed
#Chronic ambulatory dysfunction
Attempts to use cane or walker at baseline uses electric wheelchair with distance
DVT prophylaxis
Subcu heparin
Full code
reviewed with in room. All GI symptoms have fully resolved. Pt feels better and would like to go home.
Was noted to have a low SaO2, but has chronic Raynaud's and reading was probably falsely low. When hand was warmed, SaO2 noted to be 92-95% on room air. He does have an appt with his pulmonlogist tomorrow (hx of COPD) and is aware of need to
check with him
More than 30 minutes spent in discharge including
Final examination of the patient
Summarizing hospital stay
Instructions for continuing care to all relevant caregivers
Preparation of discharge records, prescriptions, and referral forms
Total time spent (in minutes): 55
Anticipated Discharge: Today
Subjective/Interval History
-
Date of Service: July 13, 2023
Diarrhea has resolved, feels well and would like to go home
Objective Data
-
Labs:
Laboratory Results
07/13/23
08:00
WBC 6.5
Hgb 8.2 L
Hct 25.6 L
Plt Count 90 L
Sodium 137
Potassium 4.9
Chloride 102
Carbon Dioxide 20 L
BUN 58 H
Creatinine 6.3 H*
Glucose 167 H
Calcium 9.6
Total Bilirubin 0.6
AST 17
ALT 12
Alkaline Phosphatase 63
Vital Signs:
Vital Signs
Temp Pulse Resp BP Pulse Ox
97.6 F 79 16 139/70 98
07/13/23 07:00 07/13/23 11:11 07/13/23 08:15 07/13/23 11:11 07/13/23 08:15
I&O
07/12/23 07/13/23 07/14/23
06:59 06:59 06:59
Intake Total 480 / 480
Balance 480 / 480
Review of Systems
-
History Source: Patient and Family ( at bedside)
Constitutional: Denies Fever
EENT: Reports No Symptoms Reported
Respiratory: Reports No Symptoms
Cardiac: Reports No Symptoms
Abdomen/GI: Reports Abdominal Pain (resolved) and Diarrhea (resolved)
Musculoskeletal: Reports No Symptoms
Physical Exam
-
General: Well Developed, Well Nourished and No Apparent Distress
HEENT: Normocephalic, Atraumatic and Moist Mucous Membranes
Respiratory: Clear to Auscultation; Negative Wheezes, Rales or Rhonchi
Cardiac: Regular Rhythm and S1/S2
GI: Soft, Nontender, Nondistended and Normal Bowel Sounds
Musculoskeletal: No Clubbing, No Cyanosis and No Edema
Neuro: Awake, Alert and Oriented
[2023-07-13] MEDS: STERILE WATER FOR INJECTION 10 ML IV (15:53)
[2023-07-13] MEDS: ROCEPHIN 1000 MG IV (15:54)
[2023-07-13 16:05] VITALS: BMI 24.0
--- NOTE | 2023-07-13 16:12 | W.DS.TRANS ---
DC Summary - [employer]
-
Discharge Instructions:
Sleep Apnea Risk Low
Discharge Diagnosis/Procedures Gastroenteritis
Diet Low Residue,Diabetic, Carb Controlled
Additional Diets Probiotic and/or Yogurt
Activity As tolerated,No strenuous activity
Driving Restrictions No driving
Bathing Restrictions None
Blood Work CBC, BMP with dialysis
Instructions:
Stand-Alone Forms:
Changes to Home Medications: Yes
Discharge Medications:
DC Medications w/original date entered in [employer]
vitamin B complex 1 tab PO DAILY Supplement 10/08/17
aspirin 81 mg tablet,delayed release 81 mg PO QPM Blood clot prevention/tx 01/11/19
coenzyme Q10 100 mg capsule (Co Q-10) 100 mg PO BID Heart disease/condition 01/11/19
darbepoetin дмитрий in polysorbat 10 mcg/0.4 mL in polysorbate injection syringe (Aranesp) 300 mcg IJ Q1HPRN PRN low hemoglobin 01/11/19
finasteride 5 mg tablet 5 mg PO DAILY Urinary issue 01/11/19
calcium acetate 667 mg tablet 667 mg PO MEALS High phosphorous 09/15/19
insulin aspart U-100 100 unit/mL (3 mL) subcutaneous pen (Novolog FlexPen U-100 Insulin aspart) 0 units SC TIDPRN PRN high blood sugar 09/15/19
rosuvastatin 10 mg tablet 10 mg PO QPM High cholesterol 09/15/19
furosemide 80 mg tablet 80 mg PO SUMOWEFR Fluid retention/Swelling 02/16/22
albuterol sulfate 90 mcg/actuation aerosol inhaler 2 puff inhalation R Q4HPRN PRN sob/wheezing 06/07/22
clopidogrel 75 mg tablet 75 mg PO DAILY Blood clot prevention/tx 06/07/22
umeclidinium 62.5 mcg-vilanterol 25 mcg/actuation powdr for inhalation (Anoro Ellipta) 1 inh inhalation R DAILY Lung/breathing issues 06/07/22
acetaminophen 500 mg tablet (Tylenol Extra Strength) 500 mg PO TIDPRN PRN mild pain 10/06/22
cholecalciferol (vitamin D3) 25 mcg (1,000 unit) capsule (Vitamin D3) 25 mcg PO DAILY Supplement 10/06/22
loratadine 10 mg tablet (Allerclear) 10 mg PO DAILY Allergies 10/06/22
metoprolol succinate 25 mg tablet,extended release 24 hr 25 mg PO BID Heart Failure 10/06/22
pantoprazole 40 mg tablet,delayed release (Protonix) 40 mg PO DAILY Gastrointestinal Issue 10/06/22
B complex 11-folic acid 1 mg-C 100 mg-biotin 300 mcg-zinc 50 mg tablet (Dialyvite) 1 tab PO QPM Supplement 05/04/23
biotin 5,000 mcg chewable tablet 5,000 mcg PO DAILY Supplement 05/04/23
insulin detemir U-100 100 unit/mL subcutaneous solution (Levemir U-100 Insulin) 12 unit SC HS Diabetes 05/04/23
megestrol 625 mg/5 mL (125 mg/mL) oral suspension 625 mg PO SUMOWEFR Appitite 05/04/23
melatonin 5 mg tablet 5 mg PO HS PRN sleep 05/14/23
amoxicillin 250 mg capsule 250 mg PO TID #21 caps 07/13/23
Home Medication Changes
Amoxicillin added for 7 days
Pending Results: Yes
Additional Pending Results:
Final stool studies
--- NOTE | 2023-07-13 16:13 | CM ---
Patient seen bedside.
IA completed.
Patient lives with spouse in independent living at [facility].
Patient ambulates in home wit RW, uses a electric scooter when out.
Patient independent with adls.
Patient declines VN, has had [facility] VN in the past.
ZUNIGA completed.
Patient on HD T- Th- Sat at [facility] 11:45 chair time.
PCP; Dr Chappell
Pharmacy: [facility]
Plan: home no needs, spouse will transport.
== END 2023-07-13 16:24 | disposition home or self-care (01) | DRG 391 ==
LOC: 4 WEST ACU 14:34
PROVIDERS: Clinical Nurse Specialist Family Health; Student in an Organized Health Care Education/Training Program; ADMITTING PHYSICIAN Internal Medicine; CONSULT PHYSICIAN Specialist; EMERGENCY PHYSICIAN Student in an Organized Health Care Education/Training Program; FAMILY PHYSICIAN Internal Medicine; OTHER PHYSICIAN Internal Medicine Gastroenterology
PROC: 5A1D70Z Performance of Urinary Filtration, Intermittent, Less than 6 Hours Per Day (ICD-10-PCS; 2023-07-13)
DX: A09 Infectious gastroenteritis and colitis, unspecified (principal); N18.6 End stage renal disease; I13.2 Hypertensive heart and chronic kidney disease with heart failure and with stage 5 chronic kidney disease, or end stage renal disease; I50.22 Chronic systolic (congestive) heart failure; K86.2 Cyst of pancreas; E46 Unspecified protein-calorie malnutrition; E11.22 Type 2 diabetes mellitus with diabetic chronic kidney disease; E78.00 Pure hypercholesterolemia, unspecified; I25.10 Atherosclerotic heart disease of native coronary artery without angina pectoris; J44.9 Chronic obstructive pulmonary disease, unspecified; K21.9 Gastro-esophageal reflux disease without esophagitis; D53.9 Nutritional anemia, unspecified; I71.40 Abdominal aortic aneurysm, without rupture, unspecified; G47.00 Insomnia, unspecified; D46.9 Myelodysplastic syndrome, unspecified; D63.8 Anemia in other chronic diseases classified elsewhere; K76.9 Liver disease, unspecified; R26.2 Difficulty in walking, not elsewhere classified; D69.59 Other secondary thrombocytopenia; I73.00 Raynaud's syndrome without gangrene; R30.0 Dysuria; N40.1 Benign prostatic hyperplasia with lower urinary tract symptoms; E86.0 Dehydration; Z96.611 Presence of right artificial shoulder joint; I25.2 Old myocardial infarction; Z99.2 Dependence on renal dialysis; Z87.891 Personal history of nicotine dependence; Z95.1 Presence of aortocoronary bypass graft; Z79.4 Long term (current) use of insulin; Z79.82 Long term (current) use of aspirin; Z79.02 Long term (current) use of antithrombotics/antiplatelets; Z79.51 Long term (current) use of inhaled steroids; Z87.19 Personal history of other diseases of the digestive system; Z88.8 Allergy status to other drugs, medicaments and biological substances; Z91.048 Other nonmedicinal substance allergy status; Z68.24 Body mass index [BMI] 24.0-24.9, adult
CPT/HCPCS: 80053; 82962; 83690; 83735; 84100; 85025; 87045; 87046; 87070; 87324; 87427; 87449; 87798; 89055; 94640; 96361; 96374; 97162; 97166; 99285; G0257; P9047

== ENCOUNTER → 2023-07-16 11:13 | Outpatient (REF) | payer MEDICARE, SELFPAY | LOC: HWRAD 11:13 | PROVIDERS: ATTENDING PHYSICIAN Internal Medicine | DX: M25.511 Pain in right shoulder (principal) | CPT/HCPCS: 73030 ==

== ENCOUNTER → 2023-08-20 08:32 | Outpatient (REF) | payer MEDICARE, SELFPAY | LOC: RAD 08:32 | PROVIDERS: ATTENDING PHYSICIAN Internal Medicine | DX: I63.9 Cerebral infarction, unspecified (principal) | CPT/HCPCS: 93880 ==

== ENCOUNTER 2023-09-26 20:18 | Emergency (ER) | payer MEDICARE, SELFPAY ==
[2023-09-26 20:19] VITALS: BMI 24.7
[2023-09-26 20:20] VITALS: BP 128/67
[2023-09-26 20:54] LABS: % Basophils 0.4 % (0-2); % Eosinophils 9.8 % (0-6); % Immature Granulocytes 0.2 % (0-0.5); % Monocytes 9.4 % (1.7-9.3); % Neutrophils 71.2 % (42.2-75.2); Absolute Eosinophils 0.5 10^3/uL (0-0.7); Absolute Lymphocytes 0.4 10^3/uL (1.2-3.4); Absolute Monocytes 0.5 10^3/uL (0.1-0.6); Absolute Neutrophils 3.4 10^3/uL (1.4-6.5); Hematocrit 27.9 % (39.0-52.0); Hemoglobin 9.2 g/dL (13.0-18.0); Mean Corpuscular Hgb 32.5 pg (27.0-31.0); Mean Corpuscular Volume 98.6 fL (80.0-94.0); Mean Platelet Volume 11.4 fL (7.4-10.4); Nucleated Red Blood Cells % 0 % (-); Platelet Count 73 10^3/uL (130-400); Red Blood Cell Count 2.83 10^6/uL (4.70-6.10); White Blood Cell Count 4.8 10^3/uL (4.8-10.8)
[2023-09-26 21:02] LABS: ALT (SGPT) 14 U/L (0-50); AST (SGOT) 26 U/L (17-59); Albumin 4.2 g/dl (3.5-5.0); Alkaline Phosphatase 92 U/L (38-126); Blood Urea Nitrogen 30 mg/dl (9-20); Calcium 9.4 mg/dl (8.4-10.2); Carbon Dioxide 29 mmol/L (22-30); Chloride 95 mmol/L (98-107); Glucose 202 mg/dl (70-99); Potassium 3.5 mmol/L (3.5-5.1); Sodium 136 mmol/L (135-145); Total Bilirubin 0.9 mg/dl (0.2-1.3); Total Protein 6.5 g/dl (6.3-8.2); eGFR 14.24
[2023-09-26 21:15] LABS: Troponin I 0.017 ng/ml
[2023-09-26 22:11] VITALS: BP 147/72
[2023-09-26 22:50] LABS: Troponin I 0.017 ng/ml
[2023-09-26 23:00] VITALS: BP 145/70
--- NOTE | 2023-09-26 23:08 | ED.GENMED ---
History of Present Illness
General
Chief Complaint: Chest Pain
Source: patient
Exam Limitations: none
Time Seen by Provider: 09/26/23 22:45
History of Present Illness
History of Present Illness:
This is a 83 year old male that comes in with c/o chest pain. States that he stated with chest pain around 7:30pm-8pm just after dinner. States that it was a sharp pain but it did not last long. States <1min. States that since then it comes and goes
but it is not as sharp. States that he felt SOB with the pain. States that his pain is gone. Denies any fever, chills, abd pain, nausea, vomiting, diarrhea, headache, dizziness, urinary burning.
Past History
Past History
ED Past Medical History: CAD, Cancer (Skin CA), CHF, COPD, GERD, HTN, Hypercholesterolemia, IDDM, [place], Renal failure (Wednesday, , and Wednesday. ) and Other (Chronic kidney disease, chronic liver disease. AAA that they are watching,
diverticulitis, Anemia, pancreatic cyst, Left AV fistula, Myodysplastic syndrome)
ED Past Surgical History: Cardiac (CABG, STENT), Cholecystectomy, Orthopedic (Right shoulder replacement, ) and Other (Pancreatic cyst removal, Whipple with gallbladder removed, Left AV fistula)
Social History
Tobacco: Former smoker
Alcohol: Former
Drug: None
Personal:
Living: with family ([facility])
Employment: Retired
Family History
Family History: Diabetes and CAD
Review of Systems
Review of Systems
All Other Systems: ROS reviewed and negative except as documented in HPI and ROS
Constitutional: Reports no symptoms; Denies fever or chills
EENT: Reports no symptoms
Respiratory: Reports trouble breathing; Denies cough
Cardiac: Reports chest pain
ABD/GI: Reports no symptoms; Denies abdominal pain, nausea, vomiting or diarrhea
: Reports no symptoms; Denies dysuria, frequency or urgency
Musculoskeletal: Reports no symptoms
Skin: Reports no symptoms
Neurological: Reports no symptoms; Denies dizzy or headache
Psychiatric: Reports no symptoms
Phy Exam
General Physical Exam
General Presentation: no apparent distress
General age: appears stated age
General Skin: warm and dry
General Habitus: elderly
General Mental: alert
General Hydration: appears well hydrated
ENT Exam
ENT Exam: TM's normal, pharynx normal and neck supple
Eye Exam
Eye Exam: EOMI
Cardiovascular Exam
Cardiovascular Exam: regular rate/rhythm and normal peripheral pulses
Pulmonary Exam
Pulmonary Exam: no respiratory distress, chest non tender, no rhonchi, no wheezing, no cough and other (rales 1/2 up on the right and left base)
Gastrointestinal Exam
Gastrointestinal Exam: normal bowel sounds, non tender, soft, no organomegaly, no pulsatile mass and non distended
Musculoskeletal Exam
Musculoskeletal Exam: full ROM and edema (Slight +1 pitting edema of the lower legs)
Skin Exam
Skin Exam: normal color, warm/dry, no rash and no petechia
Psychiatric Exam
Psychiatric Exam: normal mood/affect
Scores
Heart Score for Chest Pain Patients
STEMI patient?: No
History: Slightly or Non-Suspicious
ECG: Normal
Age: >/= 65 years
Risk Factors: >/= 3 Risk Factors or History of CAD
Troponin: </= Normal Limit
Heart Score for Chest Pain Patients: 4
Heart Score Risk: 20.3% MACE over next 6 weeks
Course
Orders/Labs/Results
Orders:
Orders
09/26/23 20:24
Electrocardiogram (*1) Urgent
Reason for Study: Chest Pain
09/26/23 20:25
EKG- Treatment ONCE
09/26/23 20:41
Complete Blood Count/With Diff Urgent
Comprehensive Metabolic Panel Urgent
Troponin I Urgent
09/26/23 22:14
Electrocardiogram (*1) Stat
Reason for Study: Chest Pain
09/26/23 22:18
NT-proBNP Urgent
Comment: ADD ON
Troponin I Urgent
09/26/23 23:00
CR Chest - 2 Views Urgent
Comment:
Reason For Exam: Chest pain
09/26/23 23:07
EKG- Treatment ONCE
09/26/23 23:13
Add On- LAB Urgent
Tests Added?: Pro-BNP
09/27/23 01:17
Troponin I Urgent
09/27/23 01:20
Electrocardiogram (*1) Urgent
Reason for Study: Chest Pain
Other Reason for Exam: Repeat with Troponin
Abnormal Lab Results
09/26/23
20:41
RBC 2.83 L 10^6/uL
(4.70-6.10)
Hgb 9.2 L g/dL
(13.0-18.0)
Hct 27.9 L %
(39.0-52.0)
MCV 98.6 H fL
(80.0-94.0)
MCH 32.5 H pg
(27.0-31.0)
RDW 16.0 H %
(11.5-14.5)
Plt Count 73 L 10^3/uL
(130-400)
MPV 11.4 H fL
(7.4-10.4)
Absolute Lymphs (auto) 0.4 L 10^3/uL
(1.2-3.4)
Lymphocytes % 9.0 L %
(20.5-51.1)
Monocytes % 9.4 H %
(1.7-9.3)
Eosinophils % 9.8 H %
(0-6)
Chloride 95 L mmol/L
(98-107)
BUN 30 H mg/dl
(9-20)
Creatinine 4.0 H mg/dL
(0.7-1.3)
Glucose 202 H mg/dl
(70-99)
09/26/23 20:41
09/26/23 20:41
H/H low. thrombocytopenia. Chloride slightly low. Chronic renal failure. Glucose nonfasting. Troponin 0.017, Pro-BNP >27,000,
Second Troponin <0.012
Vital Signs
Initial and Last Documented VS:
Initial Vital Signs
Temp Pulse Resp BP Pulse Ox
97.8 F 85 18 128/67 92
09/26/23 20:20 09/26/23 20:20 09/26/23 20:20 09/26/23 20:20 09/26/23 20:20
Last Documented Vital Signs
Temp Pulse Resp BP Pulse Ox
97.8 F 84 29 156/73 100
09/26/23 20:20 09/27/23 01:15 09/27/23 01:15 09/27/23 01:01 09/27/23 01:15
MDM/Problems Addressed
Differential Diagnosis Includes:
GERD, Conronary syndrome
MDM/Problems Addressed:
This is a 83 year old male that comes in with c/o chest pain and SOB. States that this lasted<1 min and then he has had it on and off since but not as sharp. States that this started after dinner.
Will check labs. Chest x-ray.
Repeat ECG: rate 86, NSR wth left axis. left BBB, T wave inversion I, aVL, V5 ,V6,
Back into see patient and . Patient has not had any further chest pain and his Second Troponin is normal. Will have patient follow up with the Family doctor and his [employer] Compliance Coordinator. Patient to return with any concerns.
Chronic conditions affecting care:
GERD
Chronic conditions affecting care: CAD
Acute Exacerbation and/or Progression of Chronic Illness:
GERD
Acute Exacerbation and/or Progression of Chronic Illness: CAD
*Radiology
Radiology exam reviewed: preliminary read by ED provider (Chest- Negative for active disease. )
*Pulse Oximetry
Patient hypoxic: no
*EKG
Interpreted by ED Provider?: Yes
Heart Rate: 85
Rate: normal
Rhythm: sinus
[place]: left axis deviation
Interval: normal interval
QRS Pattern: left bundle branch block and left vent hypertrophy
Ischemia: T-wave inversion
*Surveying Technician Interpretation
Rate: normal
Heart Rate: 85
Rhythm: sinus
*Critical Care Note
Total Time (30-74mins, 75-104mins- exclusive of procedures): Not Applicable
ED Attending Note
-
Portions of this chart may have been created with voice recognition software.� Occasional wrong word or��sound alike� substitutions may have occurred due to the inherent limitations of voice recognition software.
Discharge Plan
Departure
Patient Disposition: Home (Routine Discharge)
Date of Disposition: 09/27/23
Time of Disposition: 01:56
Patient with high blood pressure during this ER visit?: Yes
Condition: Good
Covid-19: Not Applicable
Discharge Problem:
Chest pain, SOB (shortness of breath)
Instructions: Shortness of breath, Chest Pain PCP Follow Up, BLOOD PRESSURE
Prescriptions:
No Action
vitamin B complex 1 TAB tablet
1 tab PO DAILY
finasteride 5 MG tablet
5 mg PO DAILY
aspirin 81 MG tablet,delayed release (DR/EC)
81 mg PO QPM
coenzyme Q10 [Co Q-10] 100 MG capsule
100 mg PO BID
Aranesp (in polysorbate) 10 MCG/0.4 ML syringe
300 mcg IJ Q1HPRN PRN (Reason: low hemoglobin)
Patient Comments:
q2 weeks if hgb <12
calcium acetate 667 MG tablet
667 mg PO MEALS
insulin aspart U-100 [Novolog FlexPen U-100 Insulin] 300 UNITS/3 ML insulin pen
0 units SC TIDPRN PRN (Reason: high blood sugar)
Rx Instructions:
>150= 2 units; >200= 4 units
rosuvastatin 10 MG tablet
10 mg PO QPM
furosemide 80 mg Tablet
80 mg PO SUMOWEFR
clopidogrel 75 mg tablet
75 mg PO DAILY
albuterol sulfate 90 mcg/actuation HFA aerosol inhaler
2 puff INHALATION R Q4HPRN PRN (Reason: sob/wheezing)
Anoro Ellipta 62.5-25 mcg/actuation blister with device
1 inh INHALATION R DAILY
pantoprazole [Protonix] 40 mg Tablet,Delayed Release (Dr/Ec)
40 mg PO DAILY
loratadine [Allerclear] 10 mg Tablet
10 mg PO DAILY
cholecalciferol (vitamin D3) [Vitamin D3] 25 mcg (1,000 unit) Capsule
25 mcg PO DAILY
acetaminophen [Tylenol Extra Strength] 500 MG tablet
500 mg PO TIDPRN PRN (Reason: mild pain)
metoprolol succinate 25 mg tablet extended release 24 hr
25 mg PO BID
megestrol 625 mg/5 mL (125 mg/mL) suspension
625 mg PO SUMOWEFR
Dialyvite [phone] hr-ca-gyo-mg tablet
1 tab PO QPM
biotin 5,000 mcg Tablet,Chewable
5,000 mcg PO DAILY
Levemir U-100 Insulin 100 unit/mL solution
12 unit SC HS
melatonin 5 mg Tablet
5 mg PO HS PRN (Reason: sleep)
amoxicillin 250 mg capsule
250 mg PO TID Qty: 21 0RF
Referrals:
Vic Chappell MD [Family Provider] - Follow up in 2-3 days
Activity Restrictions/Additional Instructions:
As discussed, your blood work shows that you are anemic, your chronic renal failure. Both Troponin are normal and your Chest X-ray was normal. Please follow up with the family doctor and your [facility] Compliance Coordinator for further evaluation. IF YOU HAVE
INCREASED OR CHANGING CHEST PAIN, SHORTNESS OF BREATH OR YOU HAVE ANY OTHER CONCERNS PLEASE RETURN TO THE EMERGENCY ROOM.
Interventions
Interventions:
*Risk Screen - Suicide Last Done: 09/26/23 20:20
*General Assessment Last Done: 09/26/23 20:20
*Neglect/Abuse Screening Last Done: 09/26/23 20:20
ED- Fall Risk Assessment Last Done: 09/26/23 23:35
*ED COVID-19 Vaccine History Last Done: 09/26/23 22:08
ED- Cardiac Assessment Last Done: 09/26/23 23:35
Discharge Date and Time
Print Language: LATVIAN
[2023-09-26 23:54] LABS: NT-proBNP > 27000 pg/ml
[2023-09-27] VITALS: BP 140/111
[2023-09-27 01:01] VITALS: BP 156/73
[2023-09-27 01:49] LABS: Troponin I < 0.012 ng/ml
[2023-09-27 02:00] VITALS: BP 123/64
== END 2023-09-27 02:19 | disposition home or self-care (01) ==
LOC: EMR 20:18
PROVIDERS: Clinical Nurse Specialist Family Health; Emergency Medicine; EMERGENCY PHYSICIAN Emergency Medicine; FAMILY PHYSICIAN Internal Medicine
DX: R07.89 Other chest pain (principal); R06.02 Shortness of breath; I25.10 Atherosclerotic heart disease of native coronary artery without angina pectoris; I13.0 Hypertensive heart and chronic kidney disease with heart failure and stage 1 through stage 4 chronic kidney disease, or unspecified chronic kidney disease; I50.9 Heart failure, unspecified; E11.22 Type 2 diabetes mellitus with diabetic chronic kidney disease; N18.9 Chronic kidney disease, unspecified; K76.9 Liver disease, unspecified; I71.40 Abdominal aortic aneurysm, without rupture, unspecified; D64.9 Anemia, unspecified; K21.9 Gastro-esophageal reflux disease without esophagitis; J44.9 Chronic obstructive pulmonary disease, unspecified; E78.00 Pure hypercholesterolemia, unspecified; D69.6 Thrombocytopenia, unspecified; Z82.49 Family history of ischemic heart disease and other diseases of the circulatory system; Z83.3 Family history of diabetes mellitus; Z85.828 Personal history of other malignant neoplasm of skin; Z87.891 Personal history of nicotine dependence; Z90.49 Acquired absence of other specified parts of digestive tract; Z95.1 Presence of aortocoronary bypass graft; Z95.5 Presence of coronary angioplasty implant and graft; Z96.611 Presence of right artificial shoulder joint; Z96.612 Presence of left artificial shoulder joint
CPT/HCPCS: 99283; 71046; 80053; 83880; 84484; 85025; 93005

== ENCOUNTER 2023-10-02 16:00 | Emergency (ER) | payer MEDICARE, SELFPAY ==
[2023-10-02 16:20] VITALS: BMI 24.2
--- NOTE | 2023-10-02 16:34 | ED.GENMED ---
History of Present Illness
<Marisol Arevalo MANAGER SUMMER - Last Filed: 10/03/23 18:03>
General
Chief Complaint: Abdominal Symptoms
Source: patient and family
Exam Limitations: none
Time Seen by Provider: 10/02/23 16:34
Nursing documentation reviewed up to this point in time: agreed with
History of Present Illness
History of Present Illness:
83-year-old male dialysis patient with history of cardiomyopathy, CHF, CAD, HTN, HLD, [place], GERD, IDDM presents after his dialysis today. at bedside. Pt statesat 10:30 a.m. one episode vomiting 'orange liquid.' 11:00 went to dialysis and filled
hi depends with diarrhea. Finished dialysis and sent here. Arrived with large amount malodorous liquid non bloody diarrhea. Pt states no abdominal pain. No new medications, no recent antibiotics. Denies CP, SOB. Feels better now.
Past History
<Marisol Arevalo MANAGER SUMMER - Last Filed: 10/03/23 18:03>
Past History
ED Past Medical History: CAD, Cancer (Skin CA), CHF, COPD, GERD, HTN, Hypercholesterolemia, IDDM, [place], Renal failure (Wednesday, , and Wednesday. ) and Other (Chronic kidney disease, chronic liver disease. AAA that they are watching,
diverticulitis, Anemia, pancreatic cyst, Left AV fistula, Myodysplastic syndrome)
ED Past Surgical History: Cardiac (CABG, STENT), Cholecystectomy, Orthopedic (Right shoulder replacement, ) and Other (Pancreatic cyst removal, Whipple with gallbladder removed, Left AV fistula)
Social History
Tobacco: Former smoker
Alcohol: Former
Drug: None
Personal:
Living: with family ([facility])
Employment: Retired
Family History
Family History: Diabetes and CAD
Review of Systems
<Marisol Arevalo MANAGER SUMMER - Last Filed: 10/03/23 18:03>
Review of Systems
Allergies reviewed?: Yes
All Other Systems: ROS reviewed and negative except as documented in HPI and ROS
Constitutional: Reports fatigue (as usual after his dialysis); Denies fever
Respiratory: Denies trouble breathing
Cardiac: Denies chest pain
ABD/GI: Reports abdominal pain (denies but on exam LLQ tender), nausea, vomiting and diarrhea
: Denies dysuria or difficulty voiding
Musculoskeletal: Reports no symptoms
Skin: Reports no symptoms
Neurological: Reports no symptoms
Phy Exam
<Marislo Arevalo, MANAGER SUMMER - Last Filed: 10/03/23 18:03>
Physical Exam
Physical Exam:
GENERAL: No acute distress. A&Ox3.
CONSTITUTIONAL: Afebrile.
EYES: clear, conjunctivae normal
ENMT: moist mucus membranes, Pharynx nl
RESPIRATORY: Regular respirations, nonlabored, lungs clear.
CARDIOVASCULAR: Regular rate and rhythm, no murmurs, no rubs.
GI: Soft, mid lower to LLQ tenderness, nondistended, hypoactive BS. Large brown soft stool
MUSCULOSKELETAL: Moves with ease. Well perfused.
SKIN: Warm, dry, pink
PSYCH: Normal mood and affect. Well kept, interactive and appropriate
NEUROLOGIC: Awake, alert and oriented. No focal neurological deficits
Course
<Marisol Arevalo, MANAGER SUMMER - Last Filed: 10/03/23 18:03>
Orders/Labs/Results
Orders:
Orders
10/02/23 16:22
EKG [Electrocardiogram (*1)] Urgent
Reason for Study: Chest Pain
EKG- Treatment ONCE
10/02/23 16:26
COVID-19 Antigen Urgent
Source: Nasal Swab
Complete Blood Count/With Diff Urgent
Comprehensive Metabolic Panel Urgent
STOOL [C difficile Antigen & Toxins] Urgent
CORTE[facility] Source: Feces/Stool
Specimen Description:
Date Specimen was Collected: 10/02/23
Time Specimen was Collected: 16:23
Stool Culture Urgent
CORTEZ Source: Feces/Stool
Specimen Description:
Date Specimen was Collected: 10/02/23
Time Specimen was Collected: 16:23
10/02/23 16:48
CT Abd/pel Without Iv Or Oral Urgent
Comment:
Reason For Exam: LLQ pain, diarrhea, vomiting, hx divertic
Abnormal Lab Results
10/02/23
16:26
RBC 3.37 L 10^6/uL
(4.70-6.10)
Hgb 10.8 L g/dL
(13.0-18.0)
Hct 33.1 L %
(39.0-52.0)
MCV 98.2 H fL
(80.0-94.0)
MCH 32.0 H pg
(27.0-31.0)
MCHC 32.6 L g/dL
(33.0-37.0)
RDW 16.3 H %
(11.5-14.5)
Plt Count 75 L 10^3/uL
(130-400)
MPV 11.5 H fL
(7.4-10.4)
Absolute Lymphs (auto) 0.4 L 10^3/uL
(1.2-3.4)
Neutrophils % 80.3 H %
(42.2-75.2)
Lymphocytes % 7.0 L %
(20.5-51.1)
Chloride 97 L mmol/L
(98-107)
Carbon Dioxide 31 H mmol/L
(22-30)
Creatinine 2.4 H mg/dL
(0.7-1.3)
Glucose 121 H mg/dl
(70-99)
10/02/23 16:26
10/02/23 16:26
Vital Signs
Initial and Last Documented VS:
Initial Vital Signs
Pulse Resp Pulse Ox
92 29 93
10/02/23 16:29 10/02/23 16:29 10/02/23 16:29
Last Documented Vital Signs
Temp Pulse Resp BP Pulse Ox
98.3 F 89 22 144/63 92
10/02/23 16:54 10/02/23 19:30 10/02/23 19:30 10/02/23 19:29 10/02/23 19:54
<ELI Painter - Last Filed: 10/02/23 19:47>
Orders/Labs/Results
Orders:
Orders
10/02/23 16:22
EKG [Electrocardiogram (*1)] Urgent
Reason for Study: Chest Pain
EKG- Treatment ONCE
10/02/23 16:26
COVID-19 Antigen Urgent
Source: Nasal Swab
Complete Blood Count/With Diff Urgent
Comprehensive Metabolic Panel Urgent
STOOL [C difficile Antigen & Toxins] Urgent
CORTEZ Source: Feces/Stool
Specimen Description:
Date Specimen was Collected: 10/02/23
Time Specimen was Collected: 16:23
Stool Culture Urgent
CORTEZ Source: Feces/Stool
Specimen Description:
Date Specimen was Collected: 10/02/23
Time Specimen was Collected: 16:23
10/02/23 16:48
CT Abd/pel Without Iv Or Oral Urgent
Comment:
Reason For Exam: LLQ pain, diarrhea, vomiting, hx divertic
Abnormal Lab Results
10/02/23
16:26
RBC 3.37 L 10^6/uL
(4.70-6.10)
Hgb 10.8 L g/dL
(13.0-18.0)
Hct 33.1 L %
(39.0-52.0)
MCV 98.2 H fL
(80.0-94.0)
MCH 32.0 H pg
(27.0-31.0)
MCHC 32.6 L g/dL
(33.0-37.0)
RDW 16.3 H %
(11.5-14.5)
Plt Count 75 L 10^3/uL
(130-400)
MPV 11.5 H fL
(7.4-10.4)
Absolute Lymphs (auto) 0.4 L 10^3/uL
(1.2-3.4)
Neutrophils % 80.3 H %
(42.2-75.2)
Lymphocytes % 7.0 L %
(20.5-51.1)
Chloride 97 L mmol/L
(98-107)
Carbon Dioxide 31 H mmol/L
(22-30)
Creatinine 2.4 H mg/dL
(0.7-1.3)
Glucose 121 H mg/dl
(70-99)
10/02/23 16:26
10/02/23 16:26
Vital Signs
Initial and Last Documented VS:
Initial Vital Signs
Pulse Resp Pulse Ox
92 29 93
10/02/23 16:29 10/02/23 16:29 10/02/23 16:29
Last Documented Vital Signs
Temp Pulse Resp BP Pulse Ox
98.3 F 89 22 144/63 92
10/02/23 16:54 10/02/23 19:30 10/02/23 19:30 10/02/23 19:29 10/02/23 19:54
Arslanlt;Marisol Arevalo MANAGER SUMMER - Last Filed: 10/03/23 18:03>
MDM/Problems Addressed
Differential Diagnosis Includes:
Diverticulitis, c diff colitis, gastroenteritis
MDM/Problems Addressed:
83-year-old male dialysis patient with history of cardiomyopathy, CHF, CAD, HTN, HLD, [place], GERD, IDDM presents after his dialysis today. at bedside. Pt statesat 10:30 a.m. one episode vomiting 'orange liquid.' 11:00 went to dialysis and filled
hi depends with diarrhea. Finished dialysis and sent here. Arrived with large amount malodorous brown, soft, non bloody diarrhea. Pt states no abdominal pain. No new medications, no recent antibiotics. Denies CP, SOB. Feels better now.
Abdomen: LLQ tenderness, no audible BS, nondistended.
CBC: No clinically significant abnormality
CMP: No clinically significant abnormality
COVID test is negative
6:15 p.m.
In to re evaluate pt
Remains comfortable, no further diarrhea, no vomiting
Results discussed with pt and
6:50 p.m.
Case discussed with Karis Saenz who will assume care from this point.
Awaiting CT results.
C diff results won't be back until tomorrow.
<Karis Saenz, ELI - Last Filed: 10/02/23 19:47>
MDM/Problems Addressed
MDM/Problems Addressed:
83-year-old male dialysis patient with history of cardiomyopathy, CHF, CAD, HTN, HLD, FL, GERD, IDDM presents after his dialysis today. at bedside. Pt statesat 10:30 a.m. one episode vomiting 'orange liquid.' 11:00 went to dialysis and filled
hi depends with diarrhea. Finished dialysis and sent here. Arrived with large amount malodorous brown, soft, non bloody diarrhea. Pt states no abdominal pain. No new medications, no recent antibiotics. Denies CP, SOB. Feels better now.
Abdomen: LLQ tenderness, no audible BS, nondistended.
CBC: No clinically significant abnormality
CMP: No clinically significant abnormality
COVID test is negative
6:15 p.m.
In to re evaluate pt
Remains comfortable, no further diarrhea, no vomiting
Results discussed with pt and
6:50 p.m.
Case discussed with Karis Saenz who will assume care from this point.
Awaiting CT results.
C diff results won't be back until tomorrow.
Into see patient and . Explained that there is no diverticulitis. There is 2 renal stones in the left ureter with the first being 3mm at the distal ureter and the second 4mm mid ureter. Patient is a dialysis patient and hardly urinates. There is
no Hydronephrosis. Explained that if his stool comes back positive for C-diff he would be called and started on antibiotics. Will discharge home
<ELI Painter - Last Filed: 10/02/23 19:47>
*Radiology
Radiology exam reviewed: radiology read reviewed (Ct-There is a 3mm stone within the distal left ureter as well as a 4mm stone within the mid left ureter. No evidence of Hydronephrosis. cardiomegaly with small volume bilateral pleural effusions and
adjacent atelectasis. Small volume intra-abdominal free fluid including perihepatic and perisplenic ) and all reviewed NAD by ED Provider (Ct cong0 fluid. Stable intrarenal abdominal aortic aneurysm. Colonic diverticulosis without evidence of acute
diverticulitis. )
*Critical Care Note
Total Time (30-74mins, 75-104mins- exclusive of procedures): Not Applicable
ED Attending Note
<Marisol Arevalo NP - Last Filed: 10/03/23 18:03>
-
Portions of this chart may have been created with voice recognition software.� Occasional wrong word or��sound alike� substitutions may have occurred due to the inherent limitations of voice recognition software.
Discharge Plan
Departure
Patient Disposition: Home (Routine Discharge)
Date of Disposition: 10/02/23
Time of Disposition: 19:44
Patient with high blood pressure during this ER visit?: Yes
Condition: Good
Covid-19: Not Applicable
Discharge Problem:
Diarrhea
Instructions: Diarrhea in teens and adults, BLOOD PRESSURE
Prescriptions:
No Action
vitamin B complex 1 TAB tablet
1 tab PO DAILY
finasteride 5 MG tablet
5 mg PO DAILY
aspirin 81 MG tablet,delayed release (DR/EC)
81 mg PO QPM
coenzyme Q10 [Co Q-10] 100 MG capsule
100 mg PO BID
Aranesp (in polysorbate) 10 MCG/0.4 ML syringe
300 mcg IJ Q1HPRN PRN (Reason: low hemoglobin)
Patient Comments:
q2 weeks if hgb <12
calcium acetate 667 MG tablet
667 mg PO MEALS
insulin aspart U-100 [Novolog FlexPen U-100 Insulin] 300 UNITS/3 ML insulin pen
0 units SC TIDPRN PRN (Reason: high blood sugar)
Rx Instructions:
>150= 2 units; >200= 4 units
rosuvastatin 10 MG tablet
10 mg PO QPM
furosemide 80 mg Tablet
80 mg PO SUMOWEFR
clopidogrel 75 mg tablet
75 mg PO DAILY
albuterol sulfate 90 mcg/actuation HFA aerosol inhaler
2 puff INHALATION R Q4HPRN PRN (Reason: sob/wheezing)
Anoro Ellipta 62.5-25 mcg/actuation blister with device
1 inh INHALATION R DAILY
pantoprazole [Protonix] 40 mg Tablet,Delayed Release (Dr/Ec)
40 mg PO DAILY
loratadine [Allerclear] 10 mg Tablet
10 mg PO DAILY
cholecalciferol (vitamin D3) [Vitamin D3] 25 mcg (1,000 unit) Capsule
25 mcg PO DAILY
acetaminophen [Tylenol Extra Strength] 500 MG tablet
500 mg PO TIDPRN PRN (Reason: mild pain)
metoprolol succinate 25 mg tablet extended release 24 hr
25 mg PO BID
megestrol 625 mg/5 mL (125 mg/mL) suspension
625 mg PO SUMOWEFR
Dialyvite [id number] kd-qs-owm-mg tablet
1 tab PO QPM
biotin 5,000 mcg Tablet,Chewable
5,000 mcg PO DAILY
Levemir U-100 Insulin 100 unit/mL solution
12 unit SC HS
melatonin 5 mg Tablet
5 mg PO HS PRN (Reason: sleep)
amoxicillin 250 mg capsule
250 mg PO TID Qty: 21 0RF
Referrals:
Vic Chappell MD [Family Provider] -
Activity Restrictions/Additional Instructions:
As discussed your CT scan is negative for any diverticulitis. You have two left ureteral stones that are seen. Your stool has been sent and if this would come back positive for C-diff you will be called and started on antibiotics. Please follow up
with the family doctor. IF YOU HAVE ANY OTHER CONCERNS PLEASE RETURN TO THE EMERGENCY ROOM.
Interventions
Interventions:
*Risk Screen - Suicide Last Done: 10/02/23 16:44
*General Assessment Last Done: 10/02/23 16:44
*Neglect/Abuse Screening Last Done: 10/02/23 16:44
ED- Fall Risk Assessment Last Done: 10/02/23 16:42
*ED COVID-19 Vaccine History Last Done: 10/02/23 16:44
*Nursing Disposition Last Done: 10/02/23 20:02
TI-Opbizd-Roievbussp Assessment Last Done: 10/02/23 16:41
Discharge Date and Time
Discharge Date/Time: 10/02/23 20:02
Print Language: THAI
[2023-10-02 16:37] LABS: % Basophils 0.6 % (0-2); % Eosinophils 3.9 % (0-6); % Immature Granulocytes 0.4 % (0-0.5); % Monocytes 7.8 % (1.7-9.3); % Neutrophils 80.3 % (42.2-75.2); Absolute Eosinophils 0.2 10^3/uL (0-0.7); Absolute Lymphocytes 0.4 10^3/uL (1.2-3.4); Absolute Monocytes 0.4 10^3/uL (0.1-0.6); Absolute Neutrophils 4.4 10^3/uL (1.4-6.5); Hematocrit 33.1 % (39.0-52.0); Hemoglobin 10.8 g/dL (13.0-18.0); Mean Corp Hgb Conc. 32.6 g/dL (33.0-37.0); Mean Corpuscular Volume 98.2 fL (80.0-94.0); Mean Platelet Volume 11.5 fL (7.4-10.4); Nucleated Red Blood Cells % 0 % (-); Platelet Count 75 10^3/uL (130-400); Red Blood Cell Count 3.37 10^6/uL (4.70-6.10); Red Cell Dist. Width 16.3 % (11.5-14.5); White Blood Cell Count 5.4 10^3/uL (4.8-10.8)
[2023-10-02 16:50] LABS: COVID-19 Antigen Negative (Negative)
[2023-10-02 16:52] LABS: ALT (SGPT) 14 U/L (0-50); AST (SGOT) 25 U/L (17-59); Albumin 4.5 g/dl (3.5-5.0); Alkaline Phosphatase 93 U/L (38-126); Blood Urea Nitrogen 12 mg/dl (9-20); Calcium 9.8 mg/dl (8.4-10.2); Carbon Dioxide 31 mmol/L (22-30); Chloride 97 mmol/L (98-107); Estimated Creatinine Clearance 22 ml/min; Glucose 121 mg/dl (70-99); Potassium 3.9 mmol/L (3.5-5.1); Sodium 139 mmol/L (135-145); eGFR 26.28
[2023-10-02 16:54] VITALS: BP 143/66
[2023-10-02 17:00] VITALS: BP 143/64
[2023-10-02 19:29] VITALS: BP 144/63
== END 2023-10-02 20:02 | disposition home or self-care (01) ==
LOC: EMR 16:00
PROVIDERS: EMERGENCY PHYSICIAN Emergency Medicine; FAMILY PHYSICIAN Internal Medicine
DX: R19.7 Diarrhea, unspecified (principal); I42.9 Cardiomyopathy, unspecified; I50.9 Heart failure, unspecified; I25.10 Atherosclerotic heart disease of native coronary artery without angina pectoris; E78.00 Pure hypercholesterolemia, unspecified; I25.2 Old myocardial infarction; K21.9 Gastro-esophageal reflux disease without esophagitis; I13.0 Hypertensive heart and chronic kidney disease with heart failure and stage 1 through stage 4 chronic kidney disease, or unspecified chronic kidney disease; E11.22 Type 2 diabetes mellitus with diabetic chronic kidney disease; N18.9 Chronic kidney disease, unspecified; Z99.2 Dependence on renal dialysis
CPT/HCPCS: 99284; 74176; 80053; 85025; 87045; 87046; 87324; 87427; 87449; 87811; 93005

== ENCOUNTER 2024-03-13 02:54 | Emergency (ER) | payer MEDICARE, SELFPAY ==
[2024-03-13 02:55] VITALS: BP 133/62
[2024-03-13 03:38] VITALS: BMI 22.4
--- NOTE | 2024-03-13 03:49 | ED.GENMED ---
History of Present Illness
<YOHANNES Pfeiffer - Last Filed: 03/13/24 04:10>
General
Chief Complaint: Bowel Problem
Source: patient
Time Seen by Provider: 03/13/24 03:17
History of Present Illness
History of Present Illness:
This is a 83 y/o male on dialysis with PMH of cardiomyopathy, CHF, CAD, HTN, HLD, GERD, DM, ESRD who presents to the ED with constipation x 1 wk. Pt reports intermittent constipation for the last few months but states this last week has been severe.
His last DM was 1 wk ago. PCP recommended Polyethylene glycol but pt denies any relief with medication. Pt has been taking Tylenol 500mg without benefit; last dose was around 9pm tonight. Admits to rectal pressure and some pain but attributes pain
mainly to bed sores. Denies nausea, vomiting.
Past History
<YOHANNES Pfeiffer - Last Filed: 03/13/24 04:10>
Past History
ED Past Medical History: CAD, Cancer (Skin CA), CHF, COPD, GERD, HTN, Hypercholesterolemia, IDDM, [place], Renal failure (Wednesday, , and Wednesday. ) and Other (Chronic kidney disease, chronic liver disease. AAA that they are watching,
diverticulitis, Anemia, pancreatic cyst, Left AV fistula, Myodysplastic syndrome)
ED Past Surgical History: Cardiac (CABG, STENT), Cholecystectomy, Orthopedic (Right shoulder replacement, ) and Other (Pancreatic cyst removal, Whipple with gallbladder removed, Left AV fistula)
Social History
Tobacco: Former smoker
Alcohol: Former
Drug: None
Personal:
Living: with family ([facility])
Employment: Retired
Family History
Family History: Diabetes and CAD
Phy Exam
<YOHANNES Pfeiffer - Last Filed: 03/13/24 04:10>
Physical Exam
Physical Exam:
Skin: [place], soft, well-hydrated
Head: Atraumatic, normocephalic
Chest and Lungs: muscle and respiratory effort symmetric without use of accessory muscles; vesicular breath sounds without adventitious sounds; even, quiet breathing
Heart: No lifts or heaves visible; regular rate and rhythm
Abd: soft, rounded, non-distended abdomen; decreased bowel sounds; no tenderness on palpation
Course
<ST KentrellPA - Last Filed: 03/13/24 04:10>
Orders/Labs/Results
Orders:
Orders
03/13/24 04:01
CR Obstruct Series W/pa Chest Urgent
Comment:
Reason For Exam: progressive constipation, abdominal pain x 1 week
03/13/24 04:34
Enema- Treatment ONCE
Type: Milk of Molasses
Vital Signs
Initial and Last Documented VS:
Initial Vital Signs
Temp Pulse Resp BP Pulse Ox
98.5 F 76 28 133/62 92
03/13/24 02:55 03/13/24 02:55 03/13/24 02:55 03/13/24 02:55 03/13/24 02:55
Last Documented Vital Signs
Temp Pulse Resp BP Pulse Ox
98.5 F 81 22 168/74 98
03/13/24 02:55 03/13/24 06:32 03/13/24 06:32 03/13/24 06:32 03/13/24 06:32
<Orin Alegre DO - Last Filed: 03/13/24 06:47>
Orders/Labs/Results
Orders:
Orders
03/13/24 04:01
CR Obstruct Series W/pa Chest Urgent
Comment:
Reason For Exam: progressive constipation, abdominal pain x 1 week
03/13/24 04:34
Enema- Treatment ONCE
Type: Milk of Molasses
Vital Signs
Initial and Last Documented VS:
Initial Vital Signs
Temp Pulse Resp BP Pulse Ox
98.5 F 76 28 133/62 92
03/13/24 02:55 03/13/24 02:55 03/13/24 02:55 03/13/24 02:55 03/13/24 02:55
Last Documented Vital Signs
Temp Pulse Resp BP Pulse Ox
98.5 F 81 22 168/74 98
03/13/24 02:55 03/13/24 06:32 03/13/24 06:32 03/13/24 06:32 03/13/24 06:32
<YOHANNES Pfeiffer - Last Filed: 03/13/24 04:10>
MDM/Problems Addressed
MDM/Problems Addressed:
Pt is a 83 y/o male on dialysis who presents to the ED with constipation x 1 wk. Pt has small BM after arrived to ED. Pt still moaning and uncomfortable while taking history after the BM. Will obtain obstruction series.
<YOHANNES Pfeiffer - Last Filed: 03/13/24 04:10>
*Critical Care Note
Total Time (30-74mins, 75-104mins- exclusive of procedures): Not Applicable
ED Attending Note
<YOHANNES Pfeiffer - Last Filed: 03/13/24 04:10>
-
Portions of this chart may have been created with voice recognition software.� Occasional wrong word or��sound alike� substitutions may have occurred due to the inherent limitations of voice recognition software.
<Orin Alegre DO - Last Filed: 03/13/24 06:47>
ED Attending Note
Patient seen and examined by attending physician: Yes
I performed the substantive portion of visit, reviewed & personally made and approve the management plan that is documented in note by myself or HAM.: Yes
ED Attending Note:
This is an 83-year-old gentleman who resides at home with his . He has history of end-stage renal disease, dialysis dependent, COPD, CHF, CAD, hypertension, hyperlipidemia, insulin requiring diabetes.
He also notes history of chronic constipation that has been an ongoing issue over the past several months. Following with PCP, started on a daily laxative and also takes Duca locks pills. Constipation has worsened throughout this week and he
complains of significant rectal pressure but has been unable to pass stool save for small smears of loose stool. He denies hematochezia. He denies abdominal pain, no back pain, no nausea or vomiting, appetite has been good. No fever nor chills.
Dialysis dependent. He is anuric.
GENERAL: 83-year-old gentleman appears his stated age, appears somewhat frail, intermittently moaning but cooperative. is accompanying. Vital signs within normal limits. notes that moaning is a chronic/habitual issue.
EYE: anicteric
NECK: Supple, nontender, no meningismus, no significant adenopathy.
ENT: oral mucosa is moist. No rhinorrhea.
CARDIAC: Regular rate and rhythm. no murmur.
LUNGS: Clear breath sounds bilaterally, no acute respiratory distress, no wheezes/rales/rhonchi
ABDOMEN: Soft, nondistended, without focal tenderness, no r/g, no cvat. normoactive BS. No palpable masses.
NEUROLOGICAL: Alert and oriented x3, moderately hard of hearing otherwise no focal neuro deficits.
SKIN: Warm and dry, normal color, skin intact. No rash.
MUSCULOSKELETAL: No C/C/E. peripheral pulses are full and equal b/l. No palpable tenderness.
PSYCH: Normal and appropriate interaction.
Concern for constipation, fecal impaction, bowel obstruction is less likely as abdomen is soft without appreciable tenderness.
Will check obstruction series and if constipation noted will plan for enema.
04:30
Obstruction series shows fecal impaction with moderate stool at the rectosigmoid region. There is scattered stool throughout the bowel but not overabundance. No obstruction, no free air.
Will attempt milk of molasses enema.
05:45
Minimal success after enema.
Patient digitally disimpacted by myself. Noted to have moderate soft brown to liquid stool within the vault.
There is some residual stool within the proximal rectum, not amenable to digital disimpaction but plan is to get the patient up, sit on the commode to attempt natural defecation.
He continues to have no abdominal pain, no back pain and remains hemodynamically stable.
06:45
Patient has successfully passed two soft stools.
Will discharge to home with recommendations he continue daily stool softener.
Prompt follow-up with PCP for recheck.
Discharge Plan
Departure
Patient Disposition: Home (Routine Discharge)
Date of Disposition: 03/13/24
Time of Disposition: 06:46
Patient with high blood pressure during this ER visit?: No
Condition: Good
Discharge Problem:
Fecal impaction of colon
Instructions: Fecal Impaction (DC)
Prescriptions:
No Action
vitamin B complex 1 TAB tablet
1 tab PO DAILY
finasteride 5 MG tablet
5 mg PO DAILY
aspirin 81 MG tablet,delayed release (DR/EC)
81 mg PO QPM
coenzyme Q10 [Co Q-10] 100 MG capsule
100 mg PO BID
Aranesp (in polysorbate) 10 MCG/0.4 ML syringe
300 mcg IJ Q1HPRN PRN (Reason: low hemoglobin)
Patient Comments:
q2 weeks if hgb <12
calcium acetate 667 MG tablet
667 mg PO MEALS
insulin aspart U-100 [Novolog FlexPen U-100 Insulin] 300 UNITS/3 ML insulin pen
0 units SC TIDPRN PRN (Reason: high blood sugar)
Rx Instructions:
>150= 2 units; >200= 4 units
rosuvastatin 10 MG tablet
10 mg PO QPM
furosemide 80 mg Tablet
80 mg PO SUMOWEFR
clopidogrel 75 mg tablet
75 mg PO DAILY
albuterol sulfate 90 mcg/actuation HFA aerosol inhaler
2 puff INHALATION R Q4HPRN PRN (Reason: sob/wheezing)
Anoro Ellipta 62.5-25 mcg/actuation blister with device
1 inh INHALATION R DAILY
pantoprazole [Protonix] 40 mg Tablet,Delayed Release (Dr/Ec)
40 mg PO DAILY
loratadine [Allerclear] 10 mg Tablet
10 mg PO DAILY
cholecalciferol (vitamin D3) [Vitamin D3] 25 mcg (1,000 unit) Capsule
25 mcg PO DAILY
acetaminophen [Tylenol Extra Strength] 500 MG tablet
500 mg PO TIDPRN PRN (Reason: mild pain)
metoprolol succinate 25 mg tablet extended release 24 hr
25 mg PO BID
megestrol 625 mg/5 mL (125 mg/mL) suspension
625 mg PO SUMOWEFR
Dialyvite [id number] yz-cm-oog-mg tablet
1 tab PO QPM
biotin 5,000 mcg Tablet,Chewable
5,000 mcg PO DAILY
Levemir U-100 Insulin 100 unit/mL solution
12 unit SC HS
melatonin 5 mg Tablet
5 mg PO HS PRN (Reason: sleep)
amoxicillin 250 mg capsule
250 mg PO TID Qty: 21 0RF
Referrals:
Vic Chappell MD [Family Provider] - Call in 1-3 days for appt
Interventions
Interventions:
*Risk Screen - Suicide Last Done: 03/13/24 02:55
*Neglect/Abuse Screening Last Done: 03/13/24 02:55
ED- Fall Risk Assessment Last Done: 03/13/24 03:50
GM-Vrwcau-Jhvmgndemx Assessment Last Done: 03/13/24 03:50
Discharge Date and Time
Print Language: TAJIK
[2024-03-13 06:32] VITALS: BP 168/74
== END 2024-03-13 07:17 | disposition home or self-care (01) ==
LOC: EMR 02:54
PROVIDERS: EMERGENCY PHYSICIAN Emergency Medicine; FAMILY PHYSICIAN Internal Medicine
DX: K56.41 Fecal impaction (principal); I50.9 Heart failure, unspecified; I25.10 Atherosclerotic heart disease of native coronary artery without angina pectoris; I13.2 Hypertensive heart and chronic kidney disease with heart failure and with stage 5 chronic kidney disease, or end stage renal disease; N18.6 End stage renal disease; E11.22 Type 2 diabetes mellitus with diabetic chronic kidney disease; E78.00 Pure hypercholesterolemia, unspecified; K21.9 Gastro-esophageal reflux disease without esophagitis; Z87.891 Personal history of nicotine dependence
CPT/HCPCS: 99283; 74022

== ENCOUNTER → 2024-03-22 10:33 | Outpatient (REF) | payer MEDICARE, SELFPAY | LOC: HWRAD 10:33 | PROVIDERS: ATTENDING PHYSICIAN Internal Medicine Pulmonary Disease; FAMILY PHYSICIAN Internal Medicine | DX: R06.09 Other forms of dyspnea (principal) | CPT/HCPCS: 71046 ==

== ENCOUNTER 2024-05-19 06:04 | Emergency (ER) | payer MEDICARE, SELFPAY ==
[2024-05-19 06:14] VITALS: BP 111/51
--- NOTE | 2024-05-19 07:47 | ED.GENMED ---
History of Present Illness
General
Chief Complaint: Fall
Time Seen by Provider: 05/19/24 07:34
History of Present Illness
History of Present Illness:
83-year-old male with history of COPD, CHF, CAD, hypertension, hyperlipidemia, end-stage renal disease on dialysis, and insulin-dependent diabetes presents to the emergency department for evaluation after a fall. He states he was walking back to
the bathroom last night when he fell and struck his head on the ground. reports that he had a fall just under 1 week ago injuring his right chest wall as well. He is on anticoagulants. Denies any dyspnea, anterior chest pain. He also
reports constipation for the past week, still passing flatus.
Past History
Past History
ED Past Medical History: CAD, Cancer (Skin CA), CHF, COPD, GERD, HTN, Hypercholesterolemia, IDDM, [place], Renal failure (Wednesday, , and Wednesday. ) and Other (Chronic kidney disease, chronic liver disease. AAA that they are watching,
diverticulitis, Anemia, pancreatic cyst, Left AV fistula, Myodysplastic syndrome)
ED Past Surgical History: Cardiac (CABG, STENT), Cholecystectomy, Orthopedic (Right shoulder replacement, ) and Other (Pancreatic cyst removal, Whipple with gallbladder removed, Left AV fistula)
Social History
Tobacco: Former smoker
Alcohol: Former
Drug: None
Personal:
Living: with family ([facility])
Employment: Retired
Family History
Family History: Diabetes and CAD
Review of Systems
Review of Systems
Allergies reviewed?: Yes
All Other Systems: ROS reviewed and negative except as documented in HPI and ROS
Phy Exam
Physical Exam
Physical Exam:
GEN: Thin, underweight, no acute distress
Eyes: PERRLA, EOMs intact, no scleral icterus
HENT: Minor abrasion to R parietal scalp, no cephalohematoma oral mucosa moist
Lungs: No chest wall deformities, diminished bibasilar breath sounds
Cardiac: RRR, no M/R/G, no peripheral edema. Radial pulses 2+ bilat
Abdomen: S, NT, ND, NABS, no masses or hepatosplenomegaly
Neuro: AO x 3, no focal deficits to BUE/BLE, normal sensation throughout
MSK: No gross deformity or ecchymosis. No pelvic tenderness or crepitus
Skin: No rashes, petechiae. Normal color, no pallor or jaundice.
Psych: Calm, cooperative, proper hygiene
Course
Orders/Labs/Results
Orders:
Orders
05/19/24 07:46
CT Head W/o Iv Contrast Urgent
Comment:
Reason For Exam: fall head strike
CR Chest - 2 Views Urgent
Comment:
Reason For Exam: fall R chest wall pain
05/19/24 08:07
Complete Blood Count/With Diff Urgent
Comprehensive Metabolic Panel Urgent
05/19/24 09:45
CR Hand - Right Min 3 Views Urgent
Comment:
Reason For Exam: injury
Abnormal Lab Results
05/19/24
08:07
WBC 4.7 L 10^3/uL
(4.8-10.8)
RBC 3.64 L 10^6/uL
(4.70-6.10)
Hgb 12.1 L g/dL
(13.0-18.0)
Hct 36.0 L %
(39.0-52.0)
MCV 98.9 H fL
(80.0-94.0)
MCH 33.2 H pg
(27.0-31.0)
Plt Count 59 L 10^3/uL
(130-400)
Absolute Lymphs (auto) 0.5 L 10^3/uL
(1.2-3.4)
Lymphocytes % 10.1 L %
(20.5-51.1)
Monocytes % 11.8 H %
(1.7-9.3)
Eosinophils % 8.0 H %
(0-6)
Chloride 95 L mmol/L
(98-107)
Carbon Dioxide 33 H mmol/L
(22-30)
BUN 27 H mg/dl
(9-20)
Creatinine 3.7 H mg/dL
(0.7-1.3)
Glucose 141 H mg/dl
(70-99)
05/19/24 08:07
05/19/24 08:07
Vital Signs
Initial and Last Documented VS:
Initial Vital Signs
Temp Pulse Resp BP Pulse Ox
97.7 F 69 20 111/51 98
05/19/24 06:14 05/19/24 06:14 05/19/24 06:14 05/19/24 06:14 05/19/24 06:14
Last Documented Vital Signs
Temp Pulse Resp BP Pulse Ox
97.7 F 56 18 166/62 100
05/19/24 06:14 05/19/24 09:58 05/19/24 09:58 05/19/24 09:58 05/19/24 09:58
MDM/Problems Addressed
MDM/Problems Addressed:
Patient's labs are reassuring, imaging unremarkable
*Critical Care Note
Total Time (30-74mins, 75-104mins- exclusive of procedures): Not Applicable
ED Attending Note
-
Portions of this chart may have been created with voice recognition software.� Occasional wrong word or��sound alike� substitutions may have occurred due to the inherent limitations of voice recognition software.
Discharge Plan
Departure
Patient Disposition: Home (Routine Discharge)
Date of Disposition: 05/19/24
Time of Disposition: 09:32
Patient with high blood pressure during this ER visit?: No
Discharge Problem:
Falls, Abrasion of head, Acute constipation
Instructions: Constipation, Adult ED
Prescriptions:
No Action
vitamin B complex 1 TAB tablet
1 tab PO DAILY
finasteride 5 MG tablet
5 mg PO DAILY
aspirin 81 MG tablet,delayed release (DR/EC)
81 mg PO QPM
coenzyme Q10 [Co Q-10] 100 MG capsule
100 mg PO BID
Aranesp (in polysorbate) 10 MCG/0.4 ML syringe
300 mcg IJ Q1HPRN PRN (Reason: low hemoglobin)
Patient Comments:
q2 weeks if hgb <12
calcium acetate 667 MG tablet
667 mg PO MEALS
insulin aspart U-100 [Novolog FlexPen U-100 Insulin] 300 UNITS/3 ML insulin pen
0 units SC TIDPRN PRN (Reason: high blood sugar)
Rx Instructions:
>150= 2 units; >200= 4 units
rosuvastatin 10 MG tablet
10 mg PO QPM
furosemide 80 mg Tablet
80 mg PO SUMOWEFR
clopidogrel 75 mg tablet
75 mg PO DAILY
albuterol sulfate 90 mcg/actuation HFA aerosol inhaler
2 puff INHALATION R Q4HPRN PRN (Reason: sob/wheezing)
Anoro Ellipta 62.5-25 mcg/actuation blister with device
1 inh INHALATION R DAILY
pantoprazole [Protonix] 40 mg Tablet,Delayed Release (Dr/Ec)
40 mg PO DAILY
loratadine [Allerclear] 10 mg Tablet
10 mg PO DAILY
cholecalciferol (vitamin D3) [Vitamin D3] 25 mcg (1,000 unit) Capsule
25 mcg PO DAILY
acetaminophen [Tylenol Extra Strength] 500 MG tablet
500 mg PO TIDPRN PRN (Reason: mild pain)
metoprolol succinate 25 mg tablet extended release 24 hr
25 mg PO BID
megestrol 625 mg/5 mL (125 mg/mL) suspension
625 mg PO SUMOWEFR
Dialyvite [id number] lj-eo-kcw-mg tablet
1 tab PO QPM
biotin 5,000 mcg Tablet,Chewable
5,000 mcg PO DAILY
Levemir U-100 Insulin 100 unit/mL solution
12 unit SC HS
melatonin 5 mg Tablet
5 mg PO HS PRN (Reason: sleep)
amoxicillin 250 mg capsule
250 mg PO TID Qty: 21 0RF
Referrals:
Vic Chappell MD [Family Provider] -
Activity Restrictions/Additional Instructions:
Take colace twice daily
Take Dulcolax twice daily
Add fiber supplement such as metamucil or benefiber
Interventions
Interventions:
*Risk Screen - Suicide Last Done: 05/19/24 06:14
*Neglect/Abuse Screening Last Done: 05/19/24 06:14
*ED- Fall Risk Assessment Last Done: 05/19/24 06:14
*ED COVID-19 Vaccine History Last Done: 05/19/24 06:14
*Nursing Disposition Last Done: 05/19/24 10:15
ED-Musculoskeletal Assessment Last Done: 05/19/24 08:00
ED- Neurological Assessment Last Done: 05/19/24 08:00
ED-Skin Assessment Last Done: 05/19/24 08:00
Discharge Date and Time
Discharge Date/Time: 05/19/24 10:15
Print Language: BELARUSIAN
[2024-05-19 08:00] VITALS: BP 167/59
[2024-05-19 08:18] LABS: % Basophils 0.8 % (0-2); % Immature Granulocytes 0.2 % (0-0.5); % Lymphocytes 10.1 % (20.5-51.1); % Monocytes 11.8 % (1.7-9.3); % Neutrophils 69.1 % (42.2-75.2); Absolute Eosinophils 0.4 10^3/uL (0-0.7); Absolute Lymphocytes 0.5 10^3/uL (1.2-3.4); Absolute Monocytes 0.6 10^3/uL (0.1-0.6); Absolute Neutrophils 3.3 10^3/uL (1.4-6.5); Hemoglobin 12.1 g/dL (13.0-18.0); Mean Corp Hgb Conc. 33.6 g/dL (33.0-37.0); Mean Corpuscular Hgb 33.2 pg (27.0-31.0); Mean Corpuscular Volume 98.9 fL (80.0-94.0); Mean Platelet Volume 10.1 fL (7.4-10.4); Nucleated Red Blood Cells % 0 % (-); Platelet Count 59 10^3/uL (130-400); Red Blood Cell Count 3.64 10^6/uL (4.70-6.10); Red Cell Dist. Width 13.9 % (11.5-14.5); White Blood Cell Count 4.7 10^3/uL (4.8-10.8)
[2024-05-19 08:41] LABS: ALT (SGPT) 18 U/L (0-50); AST (SGOT) 19 U/L (17-59); Alkaline Phosphatase 108 U/L (38-126); Blood Urea Nitrogen 27 mg/dl (9-20); Calcium 9.5 mg/dl (8.4-10.2); Carbon Dioxide 33 mmol/L (22-30); Chloride 95 mmol/L (98-107); Glucose 141 mg/dl (70-99); Potassium 4.4 mmol/L (3.5-5.1); Sodium 138 mmol/L (135-145); Total Bilirubin 1.1 mg/dl (0.2-1.3); Total Protein 6.4 g/dl (6.3-8.2); eGFR 15.63
[2024-05-19 09:58] VITALS: BP 166/62
== END 2024-05-19 10:15 | disposition home or self-care (01) ==
LOC: EMR 06:04
PROVIDERS: Physician Assistant; EMERGENCY PHYSICIAN Emergency Medicine; FAMILY PHYSICIAN Internal Medicine
DX: K59.09 Other constipation (principal); S00.91XA Abrasion of unspecified part of head, initial encounter; W19.XXXA Unspecified fall, initial encounter; Y93.01 Activity, walking, marching and hiking; I13.2 Hypertensive heart and chronic kidney disease with heart failure and with stage 5 chronic kidney disease, or end stage renal disease; I50.9 Heart failure, unspecified; E11.22 Type 2 diabetes mellitus with diabetic chronic kidney disease; N18.6 End stage renal disease; I25.10 Atherosclerotic heart disease of native coronary artery without angina pectoris; E78.00 Pure hypercholesterolemia, unspecified; J44.9 Chronic obstructive pulmonary disease, unspecified; Z82.49 Family history of ischemic heart disease and other diseases of the circulatory system; Z83.3 Family history of diabetes mellitus; Z85.828 Personal history of other malignant neoplasm of skin; Z87.891 Personal history of nicotine dependence; Z90.49 Acquired absence of other specified parts of digestive tract; Z95.1 Presence of aortocoronary bypass graft; Z95.5 Presence of coronary angioplasty implant and graft; Z96.611 Presence of right artificial shoulder joint; Z96.612 Presence of left artificial shoulder joint; Z99.2 Dependence on renal dialysis
CPT/HCPCS: 99284; 70450; 71046; 73130; 80053; 85025

== ENCOUNTER 2024-09-10 09:36 | Emergency (ER) | payer MEDICARE, SELFPAY ==
[2024-09-10] VITALS (22 sets, daily range): BP systolic 136–182; BP diastolic 44–76; BMI 19.4
--- NOTE | 2024-09-10 10:04 | ED.GENMED ---
History of Present Illness
<ELI Razo - Last Filed: 09/10/24 13:25>
General
Chief Complaint: Weakness
Source: patient
Exam Limitations: none
Time Seen by Provider: 09/10/24 10:01
Nursing documentation reviewed up to this point in time: agreed with
History of Present Illness
History of Present Illness:
17-oljx-xjo-male presents to the ER for evaluation. Patient with history of end-stage renal disease on dialysis Wednesday, CHF CAD , [place] hypertension abdominal aortic aneurysm hyperlipidemia [place] presents for confusion. reports
patient seemed more weak and more confused today. She reports he is very anxious and restless. reports no recent fever or illness. No recent trauma. No blood thinners.
Past History
<ELI Razo - Last Filed: 09/10/24 13:25>
Past History
ED Past Medical History: CAD, Cancer (Skin CA), CHF, COPD, GERD, HTN, Hypercholesterolemia, IDDM, [place], Renal failure (Wednesday, , and Wednesday. ) and Other (Chronic kidney disease, chronic liver disease. AAA that they are watching,
diverticulitis, Anemia, pancreatic cyst, Left AV fistula, Myodysplastic syndrome)
ED Past Surgical History: Cardiac (CABG, STENT), Cholecystectomy, Orthopedic (Right shoulder replacement, ) and Other (Pancreatic cyst removal, Whipple with gallbladder removed, Left AV fistula)
Social History
Tobacco: Former smoker
Alcohol: Former
Drug: None
Personal:
Living: with family ([facility])
Employment: Retired
Family History
Family History: Diabetes and CAD
Phy Exam
<ELI Razo - Last Filed: 09/10/24 13:25>
General Physical Exam
General Presentation: no apparent distress
General age: appears stated age
General Skin: warm and dry
General Habitus: elderly
General Mental: confused
General Hydration: dry mucous membranes
Cardiovascular Exam
Cardiovascular Exam: regular rate/rhythm, no murmur and normal peripheral pulses
Pulmonary Exam
Pulmonary Exam: lungs clear and no respiratory distress
Neurological Exam
Neurological Exam: alert and other (Follows commands ,oriented to person, place )
Musculoskeletal Exam
Musculoskeletal Exam: full ROM and other (Left upper arm fistula)
Skin Exam
Skin Exam: normal color
Psychiatric Exam
Psychiatric Exam: normal mood/affect
Course
<ELI Razo - Last Filed: 09/10/24 13:25>
Orders/Labs/Results
Orders:
Orders
09/10/24 10:14
CT Head W/o Iv Contrast Urgent
Comment:
Reason For Exam: change in ms
Bladder Scan- Treatment ONCE
Urinalysis Reflex To Culture Urgent
09/10/24 10:47
Complete Blood Count/With Diff Urgent
Comprehensive Metabolic Panel Urgent
09/10/24 11:52
Nicardipine 40 mg/200 ml [Cardene] 40 mg in 200 ml IV NOW
Initial dose in mg/hr, then titrate:: 5
Titrate to keep:: SBP 140 - 160 mmHg
Titrate by mg/hr:: 2.5 mg/hr
Frequency of titrations (minutes):: 5-15 minutes
Maximum dose in mg/hr:: 15
Begin to taper infusion when:: Remained at goal for 2hrs
Taper by mg/hr:: 2.5 mg/hr
Frequency of taper (minutes) if patient maintains goal:: 15-30 minutes
Taper to off?: Yes
If infusion off & no longer maintaining goal:: Contact Provider
Abnormal Lab Results
09/10/24
10:47
WBC 3.9 L 10^3/uL
(4.8-10.8)
RBC 3.36 L 10^6/uL
(4.70-6.10)
Hgb 11.0 L g/dL
(13.0-18.0)
Hct 33.5 L %
(39.0-52.0)
MCV 99.7 H fL
(80.0-94.0)
MCH 32.7 H pg
(27.0-31.0)
MCHC 32.8 L g/dL
(33.0-37.0)
Plt Count 54 L 10^3/uL
(130-400)
Absolute Lymphs (auto) 0.3 L 10^3/uL
(1.2-3.4)
Lymphocytes % 7.9 L %
(20.5-51.1)
Monocytes % 11.7 H %
(1.7-9.3)
Chloride 96 L mmol/L
(98-107)
Carbon Dioxide 38 H mmol/L
(22-30)
Creatinine 2.8 H mg/dL
(0.7-1.3)
Glucose 121 H mg/dl
(70-99)
09/10/24 10:47
09/10/24 10:47
Vital Signs
Initial and Last Documented VS:
Initial Vital Signs
Temp Pulse Resp BP Pulse Ox
98.3 F 70 16 155/67 97
09/10/24 09:40 09/10/24 09:40 09/10/24 09:40 09/10/24 09:40 09/10/24 09:40
Last Documented Vital Signs
Temp Pulse Resp BP Pulse Ox
98.4 F 79 22 137/55 91
09/10/24 11:07 09/10/24 13:05 09/10/24 13:05 09/10/24 13:05 09/10/24 13:05
Director Of Sustainability consulted with Physician
Director Of Sustainability consulted with physician?: Yes
Name of Physician Consulted: vincent
<Junior Waldrop MD - Last Filed: 09/10/24 12:22>
Orders/Labs/Results
Orders:
Orders
09/10/24 10:14
CT Head W/o Iv Contrast Urgent
Comment:
Reason For Exam: change in ms
Bladder Scan- Treatment ONCE
Urinalysis Reflex To Culture Urgent
09/10/24 10:47
Complete Blood Count/With Diff Urgent
Comprehensive Metabolic Panel Urgent
09/10/24 11:52
Nicardipine 40 mg/200 ml [Cardene] 40 mg in 200 ml IV NOW
Initial dose in mg/hr, then titrate:: 5
Titrate to keep:: SBP 140 - 160 mmHg
Titrate by mg/hr:: 2.5 mg/hr
Frequency of titrations (minutes):: 5-15 minutes
Maximum dose in mg/hr:: 15
Begin to taper infusion when:: Remained at goal for 2hrs
Taper by mg/hr:: 2.5 mg/hr
Frequency of taper (minutes) if patient maintains goal:: 15-30 minutes
Taper to off?: Yes
If infusion off & no longer maintaining goal:: Contact Provider
Abnormal Lab Results
09/10/24
10:47
WBC 3.9 L 10^3/uL
(4.8-10.8)
RBC 3.36 L 10^6/uL
(4.70-6.10)
Hgb 11.0 L g/dL
(13.0-18.0)
Hct 33.5 L %
(39.0-52.0)
MCV 99.7 H fL
(80.0-94.0)
MCH 32.7 H pg
(27.0-31.0)
MCHC 32.8 L g/dL
(33.0-37.0)
Plt Count 54 L 10^3/uL
(130-400)
Absolute Lymphs (auto) 0.3 L 10^3/uL
(1.2-3.4)
Lymphocytes % 7.9 L %
(20.5-51.1)
Monocytes % 11.7 H %
(1.7-9.3)
Chloride 96 L mmol/L
(98-107)
Carbon Dioxide 38 H mmol/L
(22-30)
Creatinine 2.8 H mg/dL
(0.7-1.3)
Glucose 121 H mg/dl
(70-99)
09/10/24 10:47
09/10/24 10:47
Vital Signs
Initial and Last Documented VS:
Initial Vital Signs
Temp Pulse Resp BP Pulse Ox
98.3 F 70 16 155/67 97
09/10/24 09:40 09/10/24 09:40 09/10/24 09:40 09/10/24 09:40 09/10/24 09:40
Last Documented Vital Signs
Temp Pulse Resp BP Pulse Ox
98.4 F 79 22 137/55 91
09/10/24 11:07 09/10/24 13:05 09/10/24 13:05 09/10/24 13:05 09/10/24 13:05
<ELI Razo - Last Filed: 09/10/24 13:25>
MDM/Problems Addressed
Differential Diagnosis Includes:
Not limited to acute infection dehydration stroke electrolyte abnormality
MDM/Problems Addressed:
Patient is an 84-year-old male with end-stage renal disease on dialysis went Wednesday woke up this morning confused restless as per . No recent injury or trauma. No recent fever or chills. Patient is awake alert he is confused but does follow
commands . CT head ordered shows a new left subdural, extra axial collection with mixed density compatible with chronic and acute left subdural hematoma mass effect with midline shift from left to right.
Patient ED physician. I did speak with who wishes to transfer to [place]. I spoke with transfer center
Patient excepted to neuro ICU. I did speak with neuro surg DR Sneed .
patient accepted however under Dr. Bustos's service. As discussed Cardene is recommended as blood pressure is elevated in the 170s�180s. Will order Cardene to keep systolic blood pressure of 150s.
Patient
Patient maintained on Cardene blood pressure now improved with systolic below 150s. No ALS ground transfer available at this time therefore decision made to fly patient.
agreeable. Patient going to the ICU at [facility]
Chronic conditions affecting care:
ESRD on HD
<ELI Razo - Last Filed: 09/10/24 13:25>
*Radiology
Radiology exam reviewed: radiology read reviewed
*Pulse Oximetry
SaO2: 97
Oxygen Mode of Delivery: Room air
Patient hypoxic: no
*Critical Care Note
Total Time (30-74mins, 75-104mins- exclusive of procedures): Not Applicable
comment:
Critical care statement: A total of 40 minutes of critical care time was provided for this patient. This includes management of unstable vital signs, evaluation of the patient at bedside, reviewing the patient's pertinent medical records, discussion
with consultants, review of old EKGs and review of pertinent medical records. This time with separate from time utilized to perform the aforementioned documented procedures
ED Attending Note
<ELI Razo - Last Filed: 09/10/24 13:25>
-
Portions of this chart may have been created with voice recognition software.� Occasional wrong word or��sound alike� substitutions may have occurred due to the inherent limitations of voice recognition software.
<Junior Waldrop MD - Last Filed: 09/10/24 12:22>
ED Attending Note
Patient seen and examined by attending physician: Yes
I performed the substantive portion of visit, reviewed & personally made and approve the management plan that is documented in note by myself or HAM.: Yes
ED Attending Note:
Change in mental status over the last 24 to 48 hours. No trauma. Dialysis Wednesday.
On exam patient is chronically ill in no distress. Shunt left arm. Good thrill. Nonfocal. Moderately confused. Worse than baseline apparently. No respiratory distress. Perfusing well. Warm and dry.
CT scan shows acute on chronic subdural. Mild shift. Warrants transfer to neurosurgical center. Nicardipine started for hypertension.
Discharge Plan
Departure
Patient Disposition: [facility]
Date of Disposition: 09/10/24
Time of Disposition: 11:18
Patient with high blood pressure during this ER visit?: Yes
Condition: Fair
Covid-19: Not Applicable
Discharge Problem:
Acute subdural hematoma, Acute confusion
Prescriptions:
No Action
vitamin B complex 1 TAB tablet
1 tab PO DAILY
finasteride 5 MG tablet
5 mg PO DAILY
aspirin 81 MG tablet,delayed release (DR/EC)
81 mg PO QPM
coenzyme Q10 [Co Q-10] 100 MG capsule
100 mg PO BID
Aranesp (in polysorbate) 10 MCG/0.4 ML syringe
300 mcg IJ Q1HPRN PRN (Reason: low hemoglobin)
Patient Comments:
q2 weeks if hgb <12
calcium acetate 667 MG tablet
667 mg PO MEALS
insulin aspart U-100 [Novolog FlexPen U-100 Insulin] 300 UNITS/3 ML insulin pen
0 units SC TIDPRN PRN (Reason: high blood sugar)
Rx Instructions:
>150= 2 units; >200= 4 units
rosuvastatin 10 MG tablet
10 mg PO QPM
furosemide 80 mg Tablet
80 mg PO SUMOWEFR
clopidogrel 75 mg tablet
75 mg PO DAILY
albuterol sulfate 90 mcg/actuation HFA aerosol inhaler
2 puff INHALATION R Q4HPRN PRN (Reason: sob/wheezing)
Anoro Ellipta 62.5-25 mcg/actuation blister with device
1 inh INHALATION R DAILY
pantoprazole [Protonix] 40 mg Tablet,Delayed Release (Dr/Ec)
40 mg PO DAILY
loratadine [Allerclear] 10 mg Tablet
10 mg PO DAILY
cholecalciferol (vitamin D3) [Vitamin D3] 25 mcg (1,000 unit) Capsule
25 mcg PO DAILY
acetaminophen [Tylenol Extra Strength] 500 MG tablet
500 mg PO TIDPRN PRN (Reason: mild pain)
metoprolol succinate 25 mg tablet extended release 24 hr
25 mg PO BID
megestrol 625 mg/5 mL (125 mg/mL) suspension
625 mg PO SUMOWEFR
Dialyvite [id number] ce-ld-ewf-mg tablet
1 tab PO QPM
biotin 5,000 mcg Tablet,Chewable
5,000 mcg PO DAILY
Levemir U-100 Insulin 100 unit/mL solution
12 unit SC HS
melatonin 5 mg Tablet
5 mg PO HS PRN (Reason: sleep)
amoxicillin 250 mg capsule
250 mg PO TID Qty: 21 0RF
Referrals:
Vic Chappell MD [Family Provider]
Hospital Transfer
Other hospital: [place]
I certify that the patient requires transfer: Yes
Discussed case with accepting physician: DR Bustos
Reason for transfer: higher level of care and specialties available
Interventions
Interventions:
*Risk Screen - Suicide Last Done: 09/10/24 09:41
*Neglect/Abuse Screening Last Done: 09/10/24 09:41
*ED- Fall Risk Assessment Last Done: 09/10/24 11:03
ED- Cardiac Assessment Last Done: 09/10/24 11:03
ED- Neurological Assessment Last Done: 09/10/24 11:03
ED- Pulmonary Assessment Last Done: 09/10/24 11:03
Discharge Date and Time
Print Language: FAROESE
[2024-09-10 11:05] LABS: Hematocrit 33.5 % (39.0-52.0); Hemoglobin 11.0 g/dL (13.0-18.0); Mean Corp Hgb Conc. 32.8 g/dL (33.0-37.0); Mean Corpuscular Volume 99.7 fL (80.0-94.0); Nucleated Red Blood Cells % 0 % (-); Platelet Count 54 10^3/uL (130-400); Red Cell Dist. Width 13.6 % (11.5-14.5)
[2024-09-10 11:18] LABS: ALT (SGPT) 14 U/L (0-50); AST (SGOT) 18 U/L (17-59); Albumin 4.1 g/dl (3.5-5.0); Alkaline Phosphatase 86 U/L (38-126); Blood Urea Nitrogen 15 mg/dl (9-20); Calcium 8.8 mg/dl (8.4-10.2); Carbon Dioxide 38 mmol/L (22-30); Chloride 96 mmol/L (98-107); Estimated Creatinine Clearance 16 ml/min; Glucose 121 mg/dl (70-99); Potassium 3.9 mmol/L (3.5-5.1); Sodium 137 mmol/L (135-145); Total Protein 6.4 g/dl (6.3-8.2); eGFR 21.71
--- NOTE | 2024-09-10 11:42 | TRANSFER ---
Transfer center called for pts information. This RN gave clinicals to Lilibeth. Waiting for RN to RN report and updated transfer details.
[2024-09-10] MEDS: CARDENE 200 IV (11:59)
== END 2024-09-10 13:46 | disposition short-term general hospital (02) ==
LOC: EMR 09:36
PROVIDERS: Nurse Practitioner; EMERGENCY PHYSICIAN Emergency Medicine; FAMILY PHYSICIAN Internal Medicine
DX: S06.5XAA Traumatic subdural hemorrhage with loss of consciousness status unknown, initial encounter (principal); R41.0 Disorientation, unspecified; X58.XXXA Exposure to other specified factors, initial encounter; I13.2 Hypertensive heart and chronic kidney disease with heart failure and with stage 5 chronic kidney disease, or end stage renal disease; I50.9 Heart failure, unspecified; E11.22 Type 2 diabetes mellitus with diabetic chronic kidney disease; N18.6 End stage renal disease; E78.00 Pure hypercholesterolemia, unspecified; I25.10 Atherosclerotic heart disease of native coronary artery without angina pectoris; I25.2 Old myocardial infarction; J44.9 Chronic obstructive pulmonary disease, unspecified; Z82.49 Family history of ischemic heart disease and other diseases of the circulatory system; Z83.3 Family history of diabetes mellitus; Z85.828 Personal history of other malignant neoplasm of skin; Z86.79 Personal history of other diseases of the circulatory system; Z87.891 Personal history of nicotine dependence; Z90.49 Acquired absence of other specified parts of digestive tract; Z95.1 Presence of aortocoronary bypass graft; Z95.5 Presence of coronary angioplasty implant and graft; Z96.611 Presence of right artificial shoulder joint; Z96.612 Presence of left artificial shoulder joint; Z99.2 Dependence on renal dialysis
CPT/HCPCS: 99284; 70450; 80053; 85025